=== PATIENT | female | born 1940 | race African-American/Black ===

== ENCOUNTER 2017-02-14 12:59 | Observation (INO) | payer OTHER ==
[~2017-02-14] VITALS: Ht 162.6 cm; Wt 70.0 kg
[~2017-02-14 12:59] MED LIST: ALBU8I INH; ASPI81 CHEW; DILTCD300 PO; FLON0.053; LATA0.00 OP; LISI-360 PO; MONT10TA2 PO; Meclizine Hcl PO; OMEP20TA PO; PRED20 PO; ZITH250T PO
[2017-02-14 13:12] VITALS: BP 115/56; PULSE 56; RESP 16; TEMP 97.3; O2SAT 100
[2017-02-14] MEDS ORDERED: CARV3.12 PO (13:29)
[2017-02-14] MEDS ORDERED: OMEP20TA PO (13:29)
[2017-02-14] MEDS ORDERED: PANT20TA2 PO (13:29)
[2017-02-14] MEDS ORDERED: ATOR1TAB18 PO (13:29)
[2017-02-14] MEDS ORDERED: BACL10TA PO (13:29)
[2017-02-14] MEDS ORDERED: DILT0.05 PO (13:29)
[2017-02-14] MEDS ORDERED: LOSA50TA2 PO (13:29)
[2017-02-14] MEDS ORDERED: MONT10TA4 PO (13:29)
[2017-02-14] MEDS ORDERED: OXYB5TAB10 PO (13:29)
[2017-02-14] MEDS ORDERED: ISOS60TA PO (13:29)
[2017-02-14] MEDS ORDERED: BENZ1CAP8 PO (13:29)
[2017-02-14 14:15] VITALS: BP 127/59; PULSE 56; RESP 15; O2SAT 99
[2017-02-14] MEDS ORDERED: SODIUM CHLORIDE 0.9% FLUSH 10 ML FLUSH IVF PRN (14:15)
--- NOTE | 2017-02-14 14:50 | RADRPT ---
EXAM DATE/TIME: 02/14/2017 14:34 [place] COMPARISON: CHEST SINGLE AP, April 20, 2014, 8:12. INDICATIONS : Shortness of breath and low blood pressure. MEDICAL HISTORY : heart attack. SURGICAL HISTORY : None. ENCOUNTER: Initial ACUITY: 1 day PAIN SCORE: 0/10 LOCATION: Bilateral chest FINDINGS: A single view of the chest demonstrates the lungs to be symmetrically aerated without evidence of mas s, infiltrate or effusion. The cardiomediastinal contours are unremarkable. Osseous structures are intact. CONCLUSION: 1. No acute cardiopulmonary disease. Matt Piña MD on February 14, 2017 at 14:48 Board Certified Radiologist. This report was verified electronically.
--- NOTE | 2017-02-14 14:51 | PD ---
HPI Chief Complaint: Syncope/Near-Syncope Time Seen by Provider: 13:26 Travel History International Travel<30 days: No Contact w/Intl Traveler<30days: No Traveled to known affect area: No History of Present Illness HPI 76-year-old female came to the emergency room brought by EMS for syncopal episode. Her daughter is here was giving elaborate history since she witnessed the event. Patient says that she was sitting on her porch and talking to her daughter when all of a sudden she felt woozy. She told her daughter that she wanted to go back inside and the daughter started to walk her back into the living room when patient says her symptoms worsened. At this point daughter noticed that patient had become very pale and passed out. She was gently laid down on the floor by her. Her skin was clammy as per her. That's when she called 911. When EMS arrived patient had slowly started to come back and was awake. She feels tired right now. As per EMS her heart rate was in the 30s initially. During transportation this slowly increased and currently it is in the 50s. Patient denies any chest pain. Daughter says that she does have a poor heart. No history of extensive coronary artery disease. I looked into the back of her medication that was brought in and patient is on diltiazem and Coreg among other medications. REPLACED BY [facility] Past Medical History Narrative Medical List of her past medical, surgical, social and family history is reviewed from the nursing note. Anemia: Yes Arthritis: Yes Asthma: Yes Atrial Fibrillation: Yes Autoimmune Disease: No Blood Disorders: No Anxiety: No Depression: No Heart Rhythm Problems: Yes (AFIB) Cancer: No Cardiac Catheterization: Yes High Cholesterol: Yes Cerebrovascular Accident: Yes Diabetes: No Endocrine: No Gastrointestinal Disorders: Yes GERD: Yes Genitourinary: No Headaches: Yes Hepatitis: Yes Hiatal Hernia: Yes Hypertension: Yes Immune Disorder: No Implanted Vascular Access Dvce: Yes Kidney Stones: No Musculoskeletal: Yes Neurologic: Yes Psychiatric: No Respiratory: Yes (pneumonia, asthma) Immunizations Current: No Migraines: No Myocardial Infarction: Yes Renal Failure: No Seizures: No Thyroid Disease: Yes Ulcer: No Tetanus Vaccination: Unknown Influenza Vaccination: Yes Menopausal: Yes : 4 Para: 4 Past Surgical History Abdominal Surgery: Yes AICD: No Appendectomy: Yes Arteriovenous Shunt: No Endocrine Surgery: No Genitourinary Surgery: Yes Gynecologic Surgery: No Hysterectomy: Yes Joint Replacement: Yes (BILATERAL KNEES) Pacemaker: No Other Surgery: Yes (thyroid) Social History Alcohol Use: No Tobacco Use: Yes (4 cig day) Substance Use: No Allergies-Medications (Allergen,Severity, Reaction): Coded Allergies: aspirin (Unverified Adverse Reaction, Severe, STOMACH UPSET, 02/14/17) Comments List of allergies reviewed from the nursing note. Reported Meds & Prescriptions Reported Meds & Active Scripts Active Reported Montelukast (Montelukast Sodium) 10 Mg Tab 10 Mg PO HS Omeprazole 20 Mg Tab 20 Mg PO DAILY Atorvastatin (Atorvastatin Calcium) 80 Mg Tab 80 Mg PO HS Ditropan (Oxybutynin Chloride) 5 Mg Tab 5 Mg PO HS Baclofen 10 Mg Tab 10 Mg PO BID Pantoprazole (Pantoprazole Sodium) 20 Mg Tab 20 Mg PO DAILY Losartan-Hydrochlorothiazide 50-12.5 Mg Tab 1 Tab PO DAILY Isosorbide Mononitrate ER (Isosorbide Mononitrate) 60 Mg Tab 60 Mg PO DAILY Benzonatate 100 Mg Cap 100 Mg PO TID PRN Narrative Medication List of her home medications reviewed from the nursing note. Review of Systems Except as stated in HPI: all other systems reviewed are Neg Physical Exam Narrative GENERAL: Awake, alert, moderate distress, frail SKIN: Focused skin assessment warm/dry. HEAD: Atraumatic. Normocephalic. EYES: Pupils equal and round. No scleral icterus. No injection or drainage. ENT: No nasal bleeding or discharge. Mucous membranes pink and moist. NECK: Trachea midline. No JVD. CARDIOVASCULAR: Regular rate and rhythm. No murmur appreciated. RESPIRATORY: No accessory muscle use. Clear to auscultation. Breath sounds equal bilaterally. GASTROINTESTINAL: Abdomen soft, non-tender, nondistended. Hepatic and splenic margins not palpable. MUSCULOSKELETAL: No obvious deformities. No clubbing. No cyanosis. No edema. NEUROLOGICAL: Awake and alert. No obvious cranial nerve deficits. Motor grossly within normal limits. Normal speech. PSYCHIATRIC: Appropriate mood and affect; insight and judgment normal. Data Data Last Documented VS Vital Signs Date Time Temp Pulse Resp B/P (MAP) Pulse Ox O2 Delivery O2 Flow Rate FiO2 02/14/17 15:56 56 17 134/63 (86) 99 Nasal Cannula 2.00 02/14/17 13:12 97.3 Orders Orders Electrocardiogram (02/14/17 ) Complete Blood Count With Diff (02/14/17 13:57) Comprehensive Metabolic Panel (02/14/17 13:57) Iv Access Insert/Monitor (02/14/17 13:57) Ckmb (Isoenzyme) Profile (02/14/17 14:10) Magnesium (Mg) (02/14/17 14:10) Prothrombin Time / Inr (Pt) (02/14/17 14:10) Act Partial Throm Time (Ptt) (02/14/17 14:10) Troponin I (02/14/17 14:10) Chest, Single Ap (02/14/17 14:10) Ecg Monitoring (02/14/17 14:10) Bilateral Bp Monitoring (02/14/17 14:10) Oximetry (02/14/17 14:10) Oxygen Administration (02/14/17 14:10) Sodium Chloride 0.9% Flush (Ns Flush) (02/14/17 14:15) Admit Order (Ed Use Only) (02/14/17 16:47) Labs Laboratory Tests Test 02/14/17 13:30 White Blood Count 9.8 TH/MM3 Red Blood Count 4.65 MIL/MM3 Hemoglobin 13.6 GM/DL Hematocrit 41.8 % Mean Corpuscular Volume 89.8 FL Mean Corpuscular Hemoglobin 29.3 PG Mean Corpuscular Hemoglobin Concent 32.6 % Red Cell Distribution Width 16.5 % Platelet Count 184 TH/MM3 Mean Platelet Volume 9.6 FL Neutrophils (%) (Auto) 62.1 % Lymphocytes (%) (Auto) 26.9 % Monocytes (%) (Auto) 9.4 % Eosinophils (%) (Auto) 1.1 % Basophils (%) (Auto) 0.5 % Neutrophils # (Auto) 6.1 TH/MM3 Lymphocytes # (Auto) 2.6 TH/MM3 Monocytes # (Auto) 0.9 TH/MM3 Eosinophils # (Auto) 0.1 TH/MM3 Basophils # (Auto) 0.0 TH/MM3 CBC Comment DIFF FINAL Differential Comment Prothrombin Time 11.7 SEC Prothromb Time International Ratio 1.1 RATIO Activated Partial Thromboplast Time 24.7 SEC Blood Urea Nitrogen 17 MG/DL Creatinine 1.13 MG/DL Random Glucose 137 MG/DL Total Protein 6.2 GM/DL Albumin 3.1 GM/DL Calcium Level 8.5 MG/DL Alkaline Phosphatase 111 U/L Aspartate Amino Transf (AST/SGOT) 16 U/L Alanine Aminotransferase (ALT/SGPT) 14 U/L Total Bilirubin 0.4 MG/DL Sodium Level 143 MEQ/L Potassium Level 3.8 MEQ/L Chloride Level 109 MEQ/L Carbon Dioxide Level 25.8 MEQ/L Anion Gap 8 MEQ/L Estimat Glomerular Filtration Rate 56 ML/MIN Magnesium Level 2.1 MG/DL Total Creatine Kinase 81 U/L Troponin I 0.02 NG/ML Thyroid Stimulating Hormone 3rd Gen 1.690 uIU/ML MDM Medical Decision Making Medical Screen Exam Complete: Yes Emergency Medical Condition: Yes Medical Record Reviewed: Yes Interpretation(s) Twelve-lead EKG was reviewed by me. Normal sinus rhythm, left axis deviation, nonspecific ST-T wave changes. Heart rate of 60 bpm. Differential Diagnosis Sick sinus syndrome, symptomatic bradycardia, syncope, electrolyte abnormality Narrative Course 2:50 PM awaiting for the blood test results. Chest x-rays within normal limits. Patient will require to be admitted for observation at least for the symptomatic bradycardia and syncope. I discussed this with the patient and the family and they understand. 4:31 PM blood test results are back and within acceptable limits. Awaiting for the hospitalist to call back for admission. Patient remains hemodynamically stable. Procedures EKG Prior to Arrival: Yes Diagnosis Primary Impression: Symptomatic bradycardia Additional Impression: Syncope Qualified Codes: R55 - Syncope and collapse Admitting Information Admitting Physician Requests: Observation Luisa Scherer MD Feb 14, 2017 14:51
[2017-02-14 15:00] LABS: AUTOMATED NEUTROPHIL # 6.1 TH/MM3 (1.8-7.7); BASOPHIL % 0.5 % (0.0-2.0); EOSINOPHIL # 0.1 TH/MM3 (0-0.4); EOSINOPHIL % 1.1 % (0.0-4.0); HEMATOCRIT 41.8 % (35.0-46.0); HEMO FLAGS DIFF FINAL; LYMPH % 26.9 % (9.0-44.0); LYMPHOCYTE # 2.6 TH/MM3 (1.0-4.8); MEAN CELL VOLUME 89.8 FL (80.0-100.0); MEAN CORPUSCULAR HEMOGLOBIN 29.3 PG (27.0-34.0); MEAN CORPUSCULAR HGB CONC 32.6 % (32.0-36.0); MONO % 9.4 % (0.0-8.0); NEUT % 62.1 % (16.0-70.0); PLATELET COUNT 184 TH/MM3 (150-450); RED BLOOD COUNT 4.65 MIL/MM3 (4.00-5.30); RED CELL DISTRIBUTION WIDTH 16.5 % (11.6-17.2); WHITE BLOOD COUNT 9.8 TH/MM3 (4.0-11.0)
[2017-02-14 15:31] LABS: INTERNATIONAL NORMALIZED RATIO 1.1 RATIO; PROTHROMBIN TIME - PATIENT 11.7 SEC (9.8-11.6)
[2017-02-14 15:32] LABS: ALKALINE PHOSPHATASE 111 U/L (45-117); APTT (PATIENT) 24.7 SEC (24.3-30.1); TOTAL BILIRUBIN ADULT 0.4 MG/DL (0.2-1.0)
[2017-02-14 15:39] LABS: ALT (GPT) 14 U/L (10-53); ANION GAP 8 MEQ/L (5-15); AST (GOT) 16 U/L (15-37); BICARBONATE 25.8 MEQ/L (21.0-32.0); BLOOD UREA NITROGEN 17 MG/DL (7-18); CHLORIDE 109 MEQ/L (98-107); GLOMERULAR FILTRATION RATE 56 ML/MIN (>89); POTASSIUM 3.8 MEQ/L (3.5-5.1); SODIUM (NA) 143 MEQ/L (136-145)
[2017-02-14 15:56] VITALS: BP 134/63; PULSE 56; RESP 17; O2SAT 99
[2017-02-14 16:19] LABS: MAGNESIUM 2.1 MG/DL (1.5-2.5)
--- NOTE | 2017-02-14 16:47 | HHI.HP ---
[facility] Service Family Medicine Primary Care Physician SOFI Mcleod Admission Diagnosis Diagnoses: International Travel<30 Days: No Contact w/Intl Traveler<30days: No Known Affected Area: No History of Present Illness ED note: 76-year-old female came to the emergency room brought by EMS for syncopal episode. Her daughter is here was giving elaborate history since she witnessed the event. Patient says that she was sitting on her porch and talking to her daughter when all of a sudden she felt woozy. She told her daughter that she wanted to go back inside and the daughter started to walk her back into the living room when patient says her symptoms worsened. At this point daughter noticed that patient had become very pale and passed out. She was gently laid down on the floor by her. Her skin was clammy as per her. That 's when she called 911. When EMS arrived patient had slowly started to come back and was awake. She feels tired right now. As per EMS her heart rate was in the 30s initially. During transportation is slowly increased and currently it is in the 50s. Patient denies any chest pain. Daughter says that she does have a poor heart. No history of extensive coronary artery disease. I looked into the back of her medication that was brought in and patient is on diltiazem and Coreg among other medications. Past Family Social History Past Medical History A. fib, HTN. Coronary artery disease Anemia Tobacco abuse Hyperlipidemia Asthma Hypertension Atrial fibrillation GERD Hiatal hernia Myocardial infarction Menopausal Thyroid disease Past Surgical History Appendectomy, Hysterectomy, Bilateral Knee Surgery, Thyroidectomy. 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 Social History Negative for alcohol or drugs. Patient reports smoking 1 cigarette per day. Admits to smoking for 20 years but stopped 6 months ago. No significant alcohol use. Physical Exam Vital Signs Vital Signs Date Time Temp Pulse Resp B/P (MAP) Pulse Ox O2 Delivery O2 Flow Rate FiO2 02/14/17 15:56 56 17 134/63 (86) 99 Nasal Cannula 2.00 02/14/17 14:15 56 15 127/59 (81) 99 Nasal Cannula 2.00 02/14/17 13:17 16 100 02/14/17 13:12 97.3 56 16 115/56 (20) 100 Physical Exam GENERAL: This is a well-nourished, well-developed patient, in no apparent distress. SKIN: No rashes, ecchymoses or lesions. Cool and dry. HEAD: Atraumatic. Normocephalic. No temporal or scalp tenderness. EYES: Pupils equal round and reactive. Extraocular motions intact. No scleral icterus. No injection or drainage. ENT: Nose without bleeding, purulent drainage or septal hematoma. Throat without erythema, tonsillar hypertrophy or exudate. Uvula midline. Airway patent. NECK: Trachea midline. No JVD or lymphadenopathy. Supple, nontender, no meningeal signs. CARDIOVASCULAR: Regular rate and rhythm without murmurs, gallops, or rubs. RESPIRATORY: Clear to auscultation. Breath sounds equal bilaterally. No wheezes , rales, or rhonchi. GASTROINTESTINAL: Abdomen soft, non-tender, nondistended. No hepato-splenomegaly , or palpable masses. No guarding. MUSCULOSKELETAL: Extremities without clubbing, cyanosis, or edema. No joint tenderness, effusion, or edema noted. No calf tenderness. Negative Homans sign bilaterally. NEUROLOGICAL: Awake and alert. Cranial nerves II through XII intact. Motor and sensory grossly within normal limits. Five out of 5 muscle strength in all muscle groups. Normal speech. Laboratory Laboratory Tests Test 02/14/17 13:30 White Blood Count 9.8 Red Blood Count 4.65 Hemoglobin 13.6 Hematocrit 41.8 Mean Corpuscular Volume 89.8 Mean Corpuscular Hemoglobin 29.3 Mean Corpuscular Hemoglobin Concent 32.6 Red Cell Distribution Width 16.5 Platelet Count 184 Mean Platelet Volume 9.6 Neutrophils (%) (Auto) 62.1 Lymphocytes (%) (Auto) 26.9 Monocytes (%) (Auto) 9.4 Eosinophils (%) (Auto) 1.1 Basophils (%) (Auto) 0.5 Neutrophils # (Auto) 6.1 Lymphocytes # (Auto) 2.6 Monocytes # (Auto) 0.9 Eosinophils # (Auto) 0.1 Basophils # (Auto) 0.0 CBC Comment DIFF FINAL Differential Comment Prothrombin Time 11.7 Prothromb Time International Ratio 1.1 Activated Partial Thromboplast Time 24.7 Blood Urea Nitrogen 17 Creatinine 1.13 Random Glucose 137 Total Protein 6.2 Albumin 3.1 Calcium Level 8.5 Alkaline Phosphatase 111 Aspartate Amino Transf (AST/SGOT) 16 Alanine Aminotransferase (ALT/SGPT) 14 Total Bilirubin 0.4 Sodium Level 143 Potassium Level 3.8 Chloride Level 109 Carbon Dioxide Level 25.8 Anion Gap 8 Estimat Glomerular Filtration Rate 56 Magnesium Level 2.1 Total Creatine Kinase 81 Troponin I 0.02 Result Diagram: 02/14/17 1330 02/14/17 1330 Caprini VTE Risk Assessment Caprini Risk Assessment Model Point Value = 1 Point Value = 2 Point Value = 3 Point Value = 5 Age 41-60 Minor surgery BMI > 25 kg/m2 Swollen legs Varicose veins or History of unexplained or recurrent spontaneous Oral contraceptives or hormone replacement Sepsis (< 1 month) Serious lung disease, including pneumonia (< 1 month) Abnormal pulmonary function Acute myocardial infarction Congestive heart failure (< 1 month) History of inflammatory bowel disease Medical patient at bed rest Age 61-74 Arthroscopic surgery Major open surgery (> 45 min) Laparoscopic surgery (> 45 min) Malignancy Confined to bed (> 72 hours) Immobilizing plaster cast Central venous access Age >= 75 History of VTE Family history of VTE Factor V Leiden Prothrombin [id number] Lupus anticoagulant Anticardiolipin antibodies Elevated serum homocysteine Heparin-induced thrombocytopenia Other congenital or acquired thrombophilia Stroke (< 1 month) Elective arthroplasty Hip, pelvis, or leg fracture Acute spinal cord injury (< 1 month) Prophylaxis Regimen Total Risk Factor Score Risk Level Prophylaxis Regimen 0-1 Low Early ambulation 2 Moderate Order ONE of the following: *Sequential Compression Device (SCD) *Heparin 5000 units SQ BID 3-4 Higher Order ONE of the following medications: *Heparin 5000 units SQ TID *Enoxaparin/Lovenox 40 mg SQ daily (WT < 150 kg, CrCl > 30 mL/min) *Enoxaparin/Lovenox 30 mg SQ daily (WT < 150 kg, CrCl > 10-29 mL/min) *Enoxaparin/Lovenox 30 mg SQ BID (WT < 150 kg, CrCl > 30 mL/min) AND/OR *Sequential Compression Device (SCD) 5 or more Highest Order ONE of the following medications: *Heparin 5000 units SQ TID (Preferred with Epidurals) *Enoxaparin/Lovenox 40 mg SQ daily (WT < 150 kg, CrCl > 30 mL/min) *Enoxaparin/Lovenox 30 mg SQ daily (WT < 150 kg, CrCl > 10-29 mL/min) *Enoxaparin/Lovenox 30 mg SQ BID (WT < 150 kg, CrCl > 30 mL/min) AND *Sequential Compression Device (SCD) Rudy Kirk MD R2 Feb 14, 2017 16:47
[2017-02-14] MEDS ORDERED: SODIUM CHLORIDE 0.9% FLUSH 10 ML FLUSH IV FLUSH PRN (17:45)
[2017-02-14 17:59] VITALS: O2SAT 100
[2017-02-14] MEDS ORDERED: ENOXAPARIN SODIUM 40 MG/0.4 ML SYRINGE SQ SCH (18:00)
--- NOTE | 2017-02-14 18:55 | HHI.HP ---
[facility] Service Family Medicine Primary Care Physician Nury Urban, SOFI Admission Diagnosis Diagnoses: International Travel<30 Days: No Contact w/Intl Traveler<30days: No Known Affected Area: No History of Present Illness 76-year-old female, with pmhx Afibb and HTN, presents after syncopal episode this morning. The patient states that she was sitting on the porch and eating food and then all of a sudden she felt dizzy. She told her daughter that she needed to be brought inside and then she passed out and the rest of the events are noticed by the daughter. The daughter states that she became very pale and clammy and passed out for a couple of minutes. The patient states that she woke up in the ER and she felt fine "just a little dizzy". She denies any chest pain or shortness of breath this morning. She denies any recent sicknesses. She has been feeling fine all week with no complaints. (Rachna Gore MD R2) Review of Systems Constitutional: DENIES: Fever, Weight gain Endocrine: DENIES: Heat/cold intolerance Eyes: DENIES: Blurred vision, Diplopia Ears, nose, mouth, throat: DENIES: Tinnitus, Hearing loss Respiratory: DENIES: Cough, Wheezing Cardiovascular: DENIES: Palpitations, Dyspnea on Exertion Gastrointestinal: DENIES: Abdominal pain, Black stools Genitourinary: DENIES: Hematuria, Dysuria Musculoskeletal: DENIES: Muscle aches, Stiffness Integumentary: DENIES: Pruritus Psychiatric: DENIES: Confusion, Mood changes (Rachna Gore MD R2) Past Family Social History Past Medical History A. fib, HTN. Coronary artery disease Anemia Tobacco abuse Hyperlipidemia Asthma Hypertension Atrial fibrillation GERD Hiatal hernia Myocardial infarction Menopausal Thyroid disease Past Surgical History Appendectomy, Hysterectomy, Bilateral Knee Surgery, Thyroidectomy. Bilateral knee replacement Total hysterectomy Appendectomy (Rachna Gore MD R2) Allergies: Coded Allergies: aspirin (Unverified Adverse Reaction, Severe, STOMACH UPSET, 02/14/17) Family History Noncontributory. Social History smokes 4 cigarettes per day, denies alcohol, denies other drugs (Rachna Gore MD R2) Physical Exam Vital Signs Vital Signs Date Time Temp Pulse Resp B/P (MAP) Pulse Ox O2 Delivery O2 Flow Rate FiO2 02/14/17 17:59 100 Nasal Cannula 2.00 02/14/17 15:56 56 17 134/63 (86) 99 Nasal Cannula 2.00 02/14/17 14:15 56 15 127/59 (81) 99 Nasal Cannula 2.00 02/14/17 13:17 16 100 02/14/17 13:12 97.3 56 16 115/56 (75) 100 Physical Exam GENERAL: This is a well-nourished, well-developed patient, in no apparent distress. SKIN: No rashes, ecchymoses or lesions. Cool and dry. HEAD: Atraumatic. Normocephalic. No temporal or scalp tenderness. EYES: Pupils equal round and reactive. Extraocular motions intact. No scleral icterus. No injection or drainage. ENT: Nose without bleeding, purulent drainage or septal hematoma. Throat without erythema, tonsillar hypertrophy or exudate. Uvula midline. Airway patent. NECK: Trachea midline. No JVD or lymphadenopathy. Supple, nontender, no meningeal signs. CARDIOVASCULAR: Regular rate and rhythm without murmurs, gallops, or rubs. RESPIRATORY: Clear to auscultation. Breath sounds equal bilaterally. No wheezes , rales, or rhonchi. GASTROINTESTINAL: Abdomen soft, non-tender, nondistended. No hepato-splenomegaly , or palpable masses. No guarding. MUSCULOSKELETAL: Extremities without clubbing, cyanosis, or edema. No joint tenderness, effusion, or edema noted. No calf tenderness. Negative Homans sign bilaterally. NEUROLOGICAL: Awake and alert. Cranial nerves II through XII intact. Motor and sensory grossly within normal limits. Five out of 5 muscle strength in all muscle groups. Normal speech. Laboratory Laboratory Tests Test 02/14/17 13:30 White Blood Count 9.8 Red Blood Count 4.65 Hemoglobin 13.6 Hematocrit 41.8 Mean Corpuscular Volume 89.8 Mean Corpuscular Hemoglobin 29.3 Mean Corpuscular Hemoglobin Concent 32.6 Red Cell Distribution Width 16.5 Platelet Count 184 Mean Platelet Volume 9.6 Neutrophils (%) (Auto) 62.1 Lymphocytes (%) (Auto) 26.9 Monocytes (%) (Auto) 9.4 Eosinophils (%) (Auto) 1.1 Basophils (%) (Auto) 0.5 Neutrophils # (Auto) 6.1 Lymphocytes # (Auto) 2.6 Monocytes # (Auto) 0.9 Eosinophils # (Auto) 0.1 Basophils # (Auto) 0.0 CBC Comment DIFF FINAL Differential Comment Prothrombin Time 11.7 Prothromb Time International Ratio 1.1 Activated Partial Thromboplast Time 24.7 Blood Urea Nitrogen 17 Creatinine 1.13 Random Glucose 137 Total Protein 6.2 Albumin 3.1 Calcium Level 8.5 Alkaline Phosphatase 111 Aspartate Amino Transf (AST/SGOT) 16 Alanine Aminotransferase (ALT/SGPT) 14 Total Bilirubin 0.4 Sodium Level 143 Potassium Level 3.8 Chloride Level 109 Carbon Dioxide Level 25.8 Anion Gap 8 Estimat Glomerular Filtration Rate 56 Magnesium Level 2.1 Total Creatine Kinase 81 Troponin I 0.02 (Rachna Gore MD R2) Result Diagram: 02/14/17 1330 02/14/17 1330 Caprini VTE Risk Assessment Caprini VTE Risk Assessment: No/Low Risk (score <= 1) Caprini Risk Assessment Model Point Value = 1 Point Value = 2 Point Value = 3 Point Value = 5 Age 41-60 Minor surgery BMI > 25 kg/m2 Swollen legs Varicose veins or History of unexplained or recurrent spontaneous Oral contraceptives or hormone replacement Sepsis (< 1 month) Serious lung disease, including pneumonia (< 1 month) Abnormal pulmonary function Acute myocardial infarction Congestive heart failure (< 1 month) History of inflammatory bowel disease Medical patient at bed rest Age 61-74 Arthroscopic surgery Major open surgery (> 45 min) Laparoscopic surgery (> 45 min) Malignancy Confined to bed (> 72 hours) Immobilizing plaster cast Central venous access Age >= 75 History of VTE Family history of VTE Factor V Leiden Prothrombin [id number] Lupus anticoagulant Anticardiolipin antibodies Elevated serum homocysteine Heparin-induced thrombocytopenia Other congenital or acquired thrombophilia Stroke (< 1 month) Elective arthroplasty Hip, pelvis, or leg fracture Acute spinal cord injury (< 1 month) Prophylaxis Regimen Total Risk Factor Score Risk Level Prophylaxis Regimen 0-1 Low Early ambulation 2 Moderate Order ONE of the following: *Sequential Compression Device (SCD) *Heparin 5000 units SQ BID 3-4 Higher Order ONE of the following medications: *Heparin 5000 units SQ TID *Enoxaparin/Lovenox 40 mg SQ daily (WT < 150 kg, CrCl > 30 mL/min) *Enoxaparin/Lovenox 30 mg SQ daily (WT < 150 kg, CrCl > 10-29 mL/min) *Enoxaparin/Lovenox 30 mg SQ BID (WT < 150 kg, CrCl > 30 mL/min) AND/OR *Sequential Compression Device (SCD) 5 or more Highest Order ONE of the following medications: *Heparin 5000 units SQ TID (Preferred with Epidurals) *Enoxaparin/Lovenox 40 mg SQ daily (WT < 150 kg, CrCl > 30 mL/min) *Enoxaparin/Lovenox 30 mg SQ daily (WT < 150 kg, CrCl > 10-29 mL/min) *Enoxaparin/Lovenox 30 mg SQ BID (WT < 150 kg, CrCl > 30 mL/min) AND *Sequential Compression Device (SCD) (Rachna Gore MD R2) Assessment and Plan Assessment and Plan 76-year-old female, history of A. fib and hypertension, presents for workup of syncope. Discussed Condition With Dr. Yelena Teague (Rachna Gore MD R2) Attending Attestation THIS CASE WAS DISCUSSED WITH THE RESIDENT PHYSICIAN. I HAVE REVIEWED THE RECORD AND AGREE WITH THE ABOVE NOTE AND PLAN OF CARE WAS DISCUSSED. I HAVE AUTHORIZED THE ORDER FOR PLACEMENT IN OUT-PATIENT OBSERVATION STATUS. (Lopez Teague MD) Problem List: (1) Coronary artery disease ICD Codes: I25.10 - Atherosclerotic heart disease of [place] coronary artery without angina pectoris Status: Chronic Plan: Follow-up ACS workup; troponin 3, EKG 3 Continue atorvastatin 80 mg daily Continue Imdur 60 daily Hold carvedilol 3.125 twice a day Hold diltiazem ER daily Continue ARB : Losartan hydrochlorothiazide 50-12.5d (2) Symptomatic bradycardia ICD Codes: R00.1 - Bradycardia, unspecified Status: Acute Plan: Follow medication regimen as noted above We will consult cardio if bradycardia does not resolve (3) Thyroid disease ICD Codes: E07.9 - Disorder of thyroid, unspecified Status: Chronic Plan: Per patient previous charts Follow-up TSH (4) Hiatal hernia with GERD ICD Codes: K21.9 - Gastro-esophageal reflux disease without esophagitis; K44.9 - Diaphragmatic hernia without obstruction or gangrene Status: Chronic Plan: Continue omeprazole 20 daily (5) Syncope ICD Codes: R55 - Syncope and collapse Status: Acute Plan: Follow-up carotid ultrasound Follow-up echocardiogram Follow-up orthostatic blood pressures (6) Hypertension ICD Codes: I10 - Hypertension Status: Chronic Plan: Continue blood pressure medications as noted above Follow-up blood pressures (7) A-fib ICD Codes: I48.91 - A-fib Status: Chronic Plan: Continue medications as mentioned above Follow-up telemetry Lovenox 40 daily (8) Urinary retention ICD Codes: R33.9 - Retention of urine, unspecified (9) Asthma ICD Codes: J45.909 - Unspecified asthma, uncomplicated Status: Chronic Plan: Continue montelukast daily Albuterol 2 puffs when necessary shortness of breath (10) fen/ppx Status: Chronic Plan: Fluids: continue PO fluids as tolerated Electrolytes: BMP within normal limits follow-up BMP in a.m. Nutrition: regular diet dvtppx: lovenox 40d GIppx: Cont omeprazole 20d (Rachna Gore MD R2) Problem Qualifiers (1) Syncope: Qualified Codes: R55 - Syncope and collapse (2) Asthma: Rachna Gore MD R2 Feb 14, 2017 18:54 Lopez Teague MD Feb 15, 2017 12:15
[2017-02-14] MEDS ORDERED: ALBUTEROL SULFATE 90 MCG/ACT HFA 8 GM INHALER INH PRN (19:00)
[2017-02-14] MEDS ORDERED: IBUPROFEN 400 MG TAB PO ONE (19:00)
[2017-02-14 20:23] VITALS: BP_SYST 114; BP_SYST 118; BP_SYST 136; BP_DIAS 59; BP_DIAS 62; BP_DIAS 65; PULSE 62; RESP 16; TEMP 98.1; O2SAT 96
[2017-02-14] MEDS: SODIUM CHLOR 0.9% 1000 ML INJ 1,000 ML IV SCH (20:30)
[2017-02-14] MEDS: SODIUM CHLORIDE 0.9% FLUSH 10 ML FLUSH IV FLUSH SCH (20:30)
[2017-02-14] MEDS ORDERED: ATORVASTATIN 80 MG TAB PO SCH (21:00)
[2017-02-14] MEDS ORDERED: OXYBUTYNIN CHLORIDE 5 MG TAB PO SCH (21:00)
--- NOTE | 2017-02-14 22:12 | RADRPT ---
EXAM DATE/TIME: 02/14/2017 20:57 [place] COMPARISON: US CAROTID ARTERIES, April 19, 2014, 20:57. INDICATIONS : Syncope. MEDICAL HISTORY : Hypercholesterolemia. Gastroesophageal reflux disease. Thyroid disease. Cerebrovascular accident. Myocardial infarction. Atrial fibrillation. Hernia, hiatal. Arthritis. Anemia. SURGICAL HISTORY : Appendectomy. Cardiac catheterization. Bilateral knee replacement. Thyroid surgery, unspecified . ENCOUNTER: Initial ACUITY: 1 day PAIN SCORE: 4/10 LOCATION: Bilateral neck PEAK SYSTOLIC VELOCITIES (cm/sec): ICA/CCA RATIO: Right: 1.1 Left: 0.8 ICA: Right: 52.6 Left: 46.1 CCA: Right: 46.0 Left: 55.5 ECA: Right: 59.4. Left: 48.2 VERTEBRAL: Right: 46..5 antegrade Left: 43.9 antegrade Elevated flow velocities and ICA/CCA ratios have been found to correlate with increased degrees of vessel stenosis, calculated as percentage of diameter relative to a normal segment of distal ICA/CCA FINDINGS: RIGHT CAROTID: There is mild plaque at the right carotid bulb region. No significant stenosis is visualized. The wa veforms are within normal limits. LEFT CAROTID: There is minimal plaque at the left carotid bulb region. No significant stenosis is visualized. The waveforms are within normal limits. VERTEBRAL ARTERIES: Antegrade flow is seen in both vertebral arteries. MISCELLANEOUS: None. CONCLUSION: Mild plaque at the right carotid bulb region and minimal plaque at the left carotid bulb region witho ut a hemodynamically significant stenosis. Portillo Anthony MD on February 14, 2017 at 22:09 Board Certified Radiologist. This report was verified electronically.
[2017-02-14 23:49] VITALS: BP 138/63; PULSE 56; RESP 17; TEMP 97.6; O2SAT 95
[2017-02-15] VITALS (7 sets, daily range): BP systolic 119–170; BP diastolic 62–73; PULSE 53–60; RESP 17–20; TEMP 97.9–98.6; O2SAT 96–100
[2017-02-15] MEDS: SODIUM CHLOR 0.9% 1000 ML INJ 1,000 ML IV SCH (03:58)
[2017-02-15] MEDS ORDERED: ISOSORBIDE MONONITRATE 60 MG TAB PO SCH (09:00)
[2017-02-15] MEDS ORDERED: LOSARTAN 50 MG TAB PO SCH (09:00)
[2017-02-15] MEDS: SODIUM CHLORIDE 0.9% FLUSH 10 ML FLUSH IV FLUSH SCH (09:00)
[2017-02-15] MEDS ORDERED: PANTOPRAZOLE SOD 20 MG DELAYED RELEASE TAB PO SCH (09:00)
[2017-02-15] MEDS ORDERED: HYDROCHLOROTHIAZIDE 12.5 MG CAP PO SCH (09:00)
[2017-02-15 09:20] LABS: AUTOMATED NEUTROPHIL # 6.1 TH/MM3 (1.8-7.7); BASOPHIL % 0.5 % (0.0-2.0); EOSINOPHIL # 0.1 TH/MM3 (0-0.4); EOSINOPHIL % 1.3 % (0.0-4.0); HEMATOCRIT 40.4 % (35.0-46.0); HEMO FLAGS DIFF FINAL; LYMPHOCYTE # 2.2 TH/MM3 (1.0-4.8); MEAN CELL VOLUME 89.2 FL (80.0-100.0); MEAN CORPUSCULAR HEMOGLOBIN 29.4 PG (27.0-34.0); MONO % 8.4 % (0.0-8.0); NEUT % 65.8 % (16.0-70.0); PLATELET COUNT 174 TH/MM3 (150-450); RED BLOOD COUNT 4.53 MIL/MM3 (4.00-5.30); RED CELL DISTRIBUTION WIDTH 16.4 % (11.6-17.2); WHITE BLOOD COUNT 9.3 TH/MM3 (4.0-11.0)
[2017-02-15 09:26] LABS: BICARBONATE 24.7 MEQ/L (21.0-32.0); POTASSIUM 3.9 MEQ/L (3.5-5.1)
--- NOTE | 2017-02-15 10:06 | EKG ---
Date Performed: 02/15/2017 Time Performed: 01:46:10 PTAGE: 76 years EKG: SINUS BRADYCARDIA NONSPECIFIC T-WAVE ABNORMALITY BORDERLINE ECG PREVIOUS TRACING : 02/15/2017 01.42 DOCTOR: Min Cutler Interpretating Date/Time 02/15/2017 10:04:12
--- NOTE | 2017-02-15 10:22 | EKG ---
Date Performed: 02/14/2017 Time Performed: 19:41:43 PTAGE: 76 years EKG: SINUS BRADYCARDIA POSSIBLE ANTERIOR MYOCARDIAL INFARCTION ABNORMAL ECG PREVIOUS TRACING : 02/14/2017 13.19 DOCTOR: Min Cutler Interpretating Date/Time 02/15/2017 10:21:03
--- NOTE | 2017-02-15 12:10 | HHI.FPPN ---
Objective Vitals Vital Signs Date Time Temp Pulse Resp B/P (MAP) Pulse Ox O2 Delivery O2 Flow Rate FiO2 02/15/17 07:21 98.6 56 20 119/67 (84) 98 02/15/17 05:22 21 02/15/17 04:19 97.9 60 17 130/69 (89) 96 02/15/17 04:10 56 02/15/17 00:33 53 02/14/17 23:49 97.6 56 17 138/63 (88) 95 02/14/17 20:23 98.1 62 16 114/62 (79) 96 118/59 (78) 136/65 (88) 02/14/17 17:59 100 Nasal Cannula 2.00 02/14/17 15:56 56 17 134/63 (86) 99 Nasal Cannula 2.00 02/14/17 14:15 56 15 127/59 (81) 99 Nasal Cannula 2.00 02/14/17 13:17 16 100 02/14/17 13:12 97.3 56 16 115/56 (75) 100 Result Diagram: 02/15/17 0826 02/15/17 0826 A/P Assessment and Plan 76-year-old female, history of A. fib and hypertension, presents for workup of syncope. Problem List: (1) Coronary artery disease ICD Codes: I25.10 - Atherosclerotic heart disease of [place] coronary artery without angina pectoris Status: Chronic Plan: Follow-up ACS workup; troponin 3, EKG 3 Continue atorvastatin 80 mg daily Continue Imdur 60 daily Hold carvedilol 3.125 twice a day Hold diltiazem ER daily Continue ARB : Losartan hydrochlorothiazide 50-12.5d (2) Symptomatic bradycardia ICD Codes: R00.1 - Bradycardia, unspecified Status: Acute Plan: Follow medication regimen as noted above We will consult cardio if bradycardia does not resolve (3) Thyroid disease ICD Codes: E07.9 - Disorder of thyroid, unspecified Status: Chronic Plan: Per patient previous charts Follow-up TSH (4) Hiatal hernia with GERD ICD Codes: K21.9 - Gastro-esophageal reflux disease without esophagitis; K44.9 - Diaphragmatic hernia without obstruction or gangrene Status: Chronic Plan: Continue omeprazole 20 daily (5) Syncope ICD Codes: R55 - Syncope and collapse Status: Acute Plan: Follow-up carotid ultrasound Follow-up echocardiogram Follow-up orthostatic blood pressures (6) Hypertension ICD Codes: I10 - Hypertension Status: Chronic Plan: Continue blood pressure medications as noted above Follow-up blood pressures (7) A-fib ICD Codes: I48.91 - A-fib Status: Chronic Plan: Continue medications as mentioned above Follow-up telemetry Lovenox 40 daily (8) Urinary retention ICD Codes: R33.9 - Retention of urine, unspecified (9) Asthma ICD Codes: J45.909 - Unspecified asthma, uncomplicated Status: Chronic Plan: Continue montelukast daily Albuterol 2 puffs when necessary shortness of breath (10) fen/ppx Status: Chronic Plan: Fluids: continue PO fluids as tolerated Electrolytes: BMP within normal limits follow-up BMP in a.m. Nutrition: regular diet dvtppx: lovenox 40d GIppx: Cont omeprazole 20d Problem Qualifiers (1) Syncope: Qualified Codes: R55 - Syncope and collapse Rachna Gore MD R2 Feb 15, 2017 12:10
--- NOTE | 2017-02-15 12:14 | HHI.HP ---
[facility] Service Family Medicine Primary Care Physician Nury Urban, [facility] Admission Diagnosis Diagnoses: (1) Coronary artery disease (2) Symptomatic bradycardia (3) Thyroid disease (4) Hiatal hernia with GERD (5) Syncope (6) Hypertension (7) A-fib (8) Urinary retention (9) Asthma (10) fen/ppx International Travel<30 Days: No Contact w/Intl Traveler<30days: No Known Affected Area: No History of Present Illness There were no significant events overnight and patient feels relatively well this morning. She denies any symptoms such as chest pain, shortness of breath, lightheadedness or dizziness. We have held both her Cardizem and metoprolol and her blood pressures have remained within normal limits and her heart rate has improved into the low 60s. She has not been up and out of bed with walking since she has been hospitalized and would like to do so today. She did tolerate breakfast and dinner without issue and states that she has been going to the bathroom without issue. In summary this is a 76-year-old female with a past medical history of atrial fibrillation and hypertension who presented to the emergency department after syncopal episode on the day of admission. She states that she was sitting on a porch and eating her food when she felt dizzy and had a syncopal episode for several seconds. The daughter states that her mother became very pale and clammy prior to her loss of consciousness. The patient woke up after several seconds and states that she felt a little dizzy, otherwise denied any residual symptoms. She denies any recent illnesses, she denies any chest pain or shortness of breath, she denies any syncopal or presyncopal events previously. Past Family Social History Past Medical History A. fib, HTN. Coronary artery disease Anemia Tobacco abuse Hyperlipidemia Asthma Hypertension Atrial fibrillation GERD Hiatal hernia Myocardial infarction Menopausal Thyroid disease Past Surgical History Appendectomy, Hysterectomy, Bilateral Knee Surgery, Thyroidectomy. Bilateral knee replacement Total hysterectomy Appendectomy Allergies: Coded Allergies: aspirin (Unverified Adverse Reaction, Severe, STOMACH UPSET, 02/14/17) Family History Noncontributory. Social History smokes 4 cigarettes per day, denies alcohol, denies other drugs Physical Exam Vital Signs Vital Signs Date Time Temp Pulse Resp B/P (MAP) Pulse Ox O2 Delivery O2 Flow Rate FiO2 02/15/17 07:21 98.6 56 20 119/67 (84) 98 02/15/17 05:22 21 02/15/17 04:19 97.9 60 17 130/69 (89) 96 02/15/17 04:10 56 02/15/17 00:33 53 02/14/17 23:49 97.6 56 17 138/63 (88) 95 02/14/17 20:23 98.1 62 16 114/62 (79) 96 118/59 (78) 136/65 (88) 02/14/17 17:59 100 Nasal Cannula 2.00 02/14/17 15:56 56 17 134/63 (86) 99 Nasal Cannula 2.00 02/14/17 14:15 56 15 127/59 (81) 99 Nasal Cannula 2.00 02/14/17 13:17 16 100 02/14/17 13:12 97.3 56 16 115/56 (75) 100 Physical Exam GENERAL: This is a well-nourished, well-developed patient, in no apparent distress lying comfortably in bed. SKIN: No rashes, ecchymoses or lesions. Cool and dry. EYES: Pupils equal round and reactive. Extraocular motions intact. No scleral icterus. No injection or drainage. CARDIOVASCULAR: Regular rate and rhythm without murmurs, gallops, or rubs. RESPIRATORY: Clear to auscultation. Breath sounds equal bilaterally. No wheezes , rales, or rhonchi. GASTROINTESTINAL: Abdomen soft, non-tender, nondistended. MUSCULOSKELETAL: Extremities without clubbing, cyanosis, or edema. NEUROLOGICAL: Awake and alert. Cranial nerves II through XII intact. Motor and sensory grossly within normal limits. Normal speech. Laboratory Laboratory Tests Test 02/14/17 13:30 02/14/17 19:30 02/15/17 01:37 02/15/17 08:26 White Blood Count 9.8 9.3 Red Blood Count 4.65 4.53 Hemoglobin 13.6 13.3 Hematocrit 41.8 40.4 Mean Corpuscular Volume 89.8 89.2 Mean Corpuscular Hemoglobin 29.3 29.4 Mean Corpuscular Hemoglobin Concent 32.6 33.0 Red Cell Distribution Width 16.5 16.4 Platelet Count 184 174 Mean Platelet Volume 9.6 9.5 Neutrophils (%) (Auto) 62.1 65.8 Lymphocytes (%) (Auto) 26.9 24.0 Monocytes (%) (Auto) 9.4 8.4 Eosinophils (%) (Auto) 1.1 1.3 Basophils (%) (Auto) 0.5 0.5 Neutrophils # (Auto) 6.1 6.1 Lymphocytes # (Auto) 2.6 2.2 Monocytes # (Auto) 0.9 0.8 Eosinophils # (Auto) 0.1 0.1 Basophils # (Auto) 0.0 0.0 CBC Comment DIFF FINAL DIFF FINAL Differential Comment Prothrombin Time 11.7 Prothromb Time International Ratio 1.1 Activated Partial Thromboplast Time 24.7 Blood Urea Nitrogen 17 12 Creatinine 1.13 0.77 Random Glucose 137 90 Total Protein 6.2 Albumin 3.1 Calcium Level 8.5 8.8 Alkaline Phosphatase 111 Aspartate Amino Transf (AST/SGOT) 16 Alanine Aminotransferase (ALT/SGPT) 14 Total Bilirubin 0.4 Sodium Level 143 140 Potassium Level 3.8 3.9 Chloride Level 109 108 Carbon Dioxide Level 25.8 24.7 Anion Gap 8 7 Estimat Glomerular Filtration Rate 56 88 Magnesium Level 2.1 Total Creatine Kinase 81 Troponin I 0.02 0.04 0.05 Thyroid Stimulating Hormone 3rd Gen 1.690 Result Diagram: 02/15/1782502/15/17 08 Imaging Last 48 hours Impressions Chest X-Ray 02/14/17 1410 Signed Impressions: Service Date/Time: Tuesday, February 14, 2017 14:34 - CONCLUSION: 1. No acute cardiopulmonary disease. Matt Piña MD Carotid Artery Ultrasound 02/14/17 0000 Signed Impressions: Service Date/Time: Tuesday, February 14, 2017 20:57 - CONCLUSION: Mild plaque at the right carotid bulb region and minimal plaque at the left carotid bulb region without a hemodynamically significant stenosis. Portillo Anthony MD Caprini VTE Risk Assessment Caprini VTE Risk Assessment: No/Low Risk (score <= 1) Caprini Risk Assessment Model Point Value = 1 Point Value = 2 Point Value = 3 Point Value = 5 Age 41-60 Minor surgery BMI > 25 kg/m2 Swollen legs Varicose veins or History of unexplained or recurrent spontaneous Oral contraceptives or hormone replacement Sepsis (< 1 month) Serious lung disease, including pneumonia (< 1 month) Abnormal pulmonary function Acute myocardial infarction Congestive heart failure (< 1 month) History of inflammatory bowel disease Medical patient at bed rest Age 61-74 Arthroscopic surgery Major open surgery (> 45 min) Laparoscopic surgery (> 45 min) Malignancy Confined to bed (> 72 hours) Immobilizing plaster cast Central venous access Age >= 75 History of VTE Family history of VTE Factor V Leiden Prothrombin [id number] Lupus anticoagulant Anticardiolipin antibodies Elevated serum homocysteine Heparin-induced thrombocytopenia Other congenital or acquired thrombophilia Stroke (< 1 month) Elective arthroplasty Hip, pelvis, or leg fracture Acute spinal cord injury (< 1 month) Prophylaxis Regimen Total Risk Factor Score Risk Level Prophylaxis Regimen 0-1 Low Early ambulation 2 Moderate Order ONE of the following: *Sequential Compression Device (SCD) *Heparin 5000 units SQ BID 3-4 Higher Order ONE of the following medications: *Heparin 5000 units SQ TID *Enoxaparin/Lovenox 40 mg SQ daily (WT < 150 kg, CrCl > 30 mL/min) *Enoxaparin/Lovenox 30 mg SQ daily (WT < 150 kg, CrCl > 10-29 mL/min) *Enoxaparin/Lovenox 30 mg SQ BID (WT < 150 kg, CrCl > 30 mL/min) AND/OR *Sequential Compression Device (SCD) 5 or more Highest Order ONE of the following medications: *Heparin 5000 units SQ TID (Preferred with Epidurals) *Enoxaparin/Lovenox 40 mg SQ daily (WT < 150 kg, CrCl > 30 mL/min) *Enoxaparin/Lovenox 30 mg SQ daily (WT < 150 kg, CrCl > 10-29 mL/min) *Enoxaparin/Lovenox 30 mg SQ BID (WT < 150 kg, CrCl > 30 mL/min) AND *Sequential Compression Device (SCD) Assessment and Plan Assessment and Plan 76-year-old female, history of A. fib and hypertension, presents for workup of syncope. Problem List: (1) Symptomatic bradycardia ICD Codes: R00.1 - Bradycardia, unspecified Status: Acute Plan: Likely due to polypharmacy as patient was on both a calcium channel effie and beta effie - Diltiazem and carvedilol have both been held and her vital signs have normalized - Blood pressure ranging from 119-138/63-69 - Heart rate ranging from 53-62 Physical therapy to evaluate patient 2-D echocardiogram pending Carotid ultrasound with no significant obstruction or blockage Lab work has been within normal limits Consider discharge home holding beta effie and calcium channel effie if echocardiogram is normal (2) Syncope ICD Codes: R55 - Syncope and collapse Status: Acute Plan: Likely secondary to symptomatically bradycardia - Management plan as above for symptomatically bradycardia (3) Coronary artery disease ICD Codes: I25.10 - Atherosclerotic heart disease of [place] coronary artery without angina pectoris Status: Chronic Plan: ACS ruled out - Troponins negative 3 - EKG with no indication of ischemia Continue atorvastatin 80 mg daily Continue Imdur 60 mg daily Continue combination medication of ARB and Hydrochlorothiazide Holding home carvedilol and diltiazem, she can follow-up with her primary care provider to restart these if needed (4) Thyroid disease ICD Codes: E07.9 - Disorder of thyroid, unspecified Status: Chronic Plan: No acute intervention (5) Hiatal hernia with GERD ICD Codes: K21.9 - Gastro-esophageal reflux disease without esophagitis; K44.9 - Diaphragmatic hernia without obstruction or gangrene Status: Chronic Plan: Continue omeprazole 20 daily (6) Hypertension ICD Codes: I10 - Hypertension Status: Chronic Plan: Continue blood pressure medications as noted above Follow-up blood pressures (7) A-fib ICD Codes: I48.91 - A-fib Status: Chronic Plan: EKG shows that she is in normal sinus rhythm with bradycardia Continue medications as mentioned above Follow-up telemetry Lovenox 40 daily (8) Asthma ICD Codes: J45.909 - Unspecified asthma, uncomplicated Status: Chronic Plan: Continue montelukast daily Albuterol 2 puffs when necessary shortness of breath (9) fen/ppx Status: Chronic Plan: Fluids: continue PO fluids as tolerated Electrolytes: BMP within normal limits follow-up BMP in a.m. Nutrition: regular diet dvtppx: lovenox 40d GIppx: Cont omeprazole 20d Problem Qualifiers (1) Syncope: Qualified Codes: R55 - Syncope and collapse (2) Asthma: Lopez Teague MD Feb 15, 2017 12:14
--- NOTE | 2017-02-15 14:29 | EKG ---
Date Performed: 02/14/2017 Time Performed: 13:19:22 PTAGE: 76 years EKG: Sinus rhythm NONSPECIFIC T-WAVE ABNORMALITY ABNORMAL ECG NO PREVIOUS TRACING DOCTOR: Min Cutler Interpretating Date/Time 02/15/2017 14:28:37
--- NOTE | 2017-02-15 15:15 | HHI.DCPOC ---
Discharge Care Plan Diagnosis: (1) Dehydration (2) Atrial fibrillation, chronic (3) HTN (hypertension) (4) Syncope (5) Symptomatic bradycardia Goals to Promote Your Health * To prevent worsening of your condition and complications * To maintain your health at the optimal level Directions to Meet Your Goals Take your medications as prescribed Follow your dietary instruction Follow activity as directed Keep your appointments as scheduled Take your immunizations and boosters as scheduled If your symptoms worsen call your PCP, if no PCP go to Urgent Care Center or Emergency Room Smoking is Dangerous to Your Health. Avoid second hand smoke Call the 24-hour hour crisis hotline for domestic abuse at Rachna Gore MD R2 Feb 15, 2017 15:15
--- NOTE | 2017-02-15 20:41 | ECHRPT ---
Indication: SYNCOPE CONCLUSIONS Normal left ventricular size. Wall thickness is normal. The left ventricular systolic function is normal (EF 60%). The left atrial size is moderately dilated. Mild mitral valve regurgitation. Mitral annular calcification is present. Mild thickening of the mitral valve leaflets. Aortic valve sclerosis is present. Mild aortic valve regurgitation. There is mild tricuspid valve regurgitation. Normal estimated pulmonary pressures. BP: 130 / 69 HR: 60 Rhythm: Sinus MEASUREMENTS (Male / Female) Normal Values Technical Quality:Fair 2D ECHO LV Diastolic Diameter PLAX 4.6 cm 4.2 - 5.9 / 3.9 - 5.3 cm LV Systolic Diameter PLAX 2.8 cm IVS Diastolic Thickness 0.9 cm 0.6 - 1.0 / 0.6 - 0.9 cm LVPW Diastolic Thickness 0.9 cm 0.6 - 1.0 / 0.6 - 0.9 cm LV Relative Wall Thickness 0.4 LVOT Diameter 1.9 cm Aortic Root Diameter 2.8 cm LA Systolic Diameter LX 3.6 cm 3.0 - 4.0 / 2.7 - 3.8 cm LA Volume Index 25.6 cm/m 16 - 28 cm/m M-MODE AV Cusp Separation MM 1.9 cm DOPPLER AV Peak Velocity 162.0 cm/s AV Peak Gradient 10.5 mmHg AV Mean Gradient 5.5 mmHg AV Velocity Time Integral 36.2 cm LVOT Peak Velocity 88.7 cm/s LVOT Peak Gradient 3.1 mmHg LVOT Velocity Time Integral 19.2 cm LVOT Cardiac Index 1823.2 cm/minm AV Area Cont Eq vti 1.5 cm AV Area Cont Eq pk 1.6 cm Mitral E Point Velocity 55.8 cm/s Mitral A Point Velocity 112.0 cm/s Mitral E to A Ratio 0.5 LV E' Lateral Velocity 6.4 cm/s Mitral E to LV E' Lateral Ratio 8.7 LV E' Septal Velocity 5.8 cm/s Mitral E to LV E' Septal Ratio 9.7 TR Peak Velocity 233.0 cm/s TR Peak Gradient 21.7 mmHg PV Peak Velocity 42.1 cm/s PV Peak Gradient 0.7 mmHg FINDINGS LEFT VENTRICLE Normal left ventricular size. Wall thickness is normal. The left ventricular systolic function is normal. LEFT ATRIUM The left atrial size is moderately dilated. MITRAL VALVE Mild mitral valve regurgitation. Mitral annular calcification is present. Mild thickening of the mitral valve leaflets. AORTIC VALVE Aortic valve sclerosis is present. Mild aortic valve regurgitation. TRICUSPID VALVE There is mild tricuspid valve regurgitation. Normal estimated pulmonary pressures. Riley Turner MD, FACC (Electronically Signed) Final Date:15 February 2017 20:40
== END 2017-02-15 20:14 | disposition home or self-care (01) ==
LOC: NEPE 12:59 → NEDA 16:48 → NEPHCDU 19:01
PROVIDERS: ADMIT Family Medicine; ATTEND Family Medicine
DX: R55 Syncope and collapse (principal); E86.0 Dehydration; R94.31 Abnormal electrocardiogram [ECG] [EKG]; R00.1 Bradycardia, unspecified; R06.02 Shortness of breath; I25.10 Atherosclerotic heart disease of native coronary artery without angina pectoris; I10 Essential (primary) hypertension; E78.00 Pure hypercholesterolemia, unspecified; I48.91 Unspecified atrial fibrillation; J45.909 Unspecified asthma, uncomplicated; I25.2 Old myocardial infarction; E07.9 Disorder of thyroid, unspecified; K21.9 Gastro-esophageal reflux disease without esophagitis; K44.9 Diaphragmatic hernia without obstruction or gangrene; K75.9 Inflammatory liver disease, unspecified; R33.9 Retention of urine, unspecified; M19.90 Unspecified osteoarthritis, unspecified site; F17.210 Nicotine dependence, cigarettes, uncomplicated; Z79.899 Other long term (current) drug therapy; Z96.653 Presence of artificial knee joint, bilateral; Z86.73 Personal history of transient ischemic attack (TIA), and cerebral infarction without residual deficits
CPT/HCPCS: 71010; 80048; 80053; 82550; 83735; 84443; 84484; 85025; 85610; 85730; 93005; 93306; 93880; 96360; 96361; 96372; G0378; J1650; J7030

== ENCOUNTER 2017-04-28 10:12 | Emergency (ER) | payer OTHER ==
[~2017-04-28 10:12] MED LIST changes: -ALBU8I INH; -ASPI81 CHEW; +ATOR80TA45 PO; +BACL10TA PO; +BENZ1CAP54 PO; -DILTCD300 PO; -FLON0.053; +ISOS60TA PO; -LATA0.00 OP; -LISI-360 PO; +LOSA50TA2 PO; -MONT10TA2 PO; +MONT10TA4 PO; -Meclizine Hcl PO; -OMEP20TA PO; +OMEP20TA93 PO; +OXYB5TAB8 PO; +PANT20TA2 PO; -PRED20 PO; -ZITH250T PO
[2017-04-28 10:14] VITALS: BP 180/82; PULSE 86; RESP 16; TEMP 98.2; O2SAT 95
[2017-04-28] MEDS ORDERED: ORPHENADRINE INJ 60 MG/2 ML AMP IM ONE (10:45)
[2017-04-28] MEDS ORDERED: KETOROLAC TROMETHAMINE 60 MG/2 ML (IM) VIAL IM ONE (10:45)
[2017-04-28] MEDS ORDERED: MEDR4PAK PO (10:50)
[2017-04-28] MEDS ORDERED: BACL10TA PO (10:50)
--- NOTE | 2017-04-28 10:50 | PD ---
HPI Chief Complaint: Pain: Acute or Chronic Time Seen by Provider: 10:25 Travel History International Travel<30 days: No Contact w/Intl Traveler<30days: No Traveled to known affect area: No History of Present Illness HPI The patient is a 76-year-old Janae female who presents to the emergency department for 4 day history of right sided neck pain that radiates to his right shoulder. The patient states she cannot recall specific injury to the area, however, does complain of tenderness of the right trapezius. The pain is worse when she looks to the right, minimal pain when she looks to the left, but no pain with flexion or extension of the neck. She also complains of mild pain with certain movements of the right shoulder. Most of her pain is over the right trapezius, mild to moderate, and described as sharp. The patient cannot recall sleeping wrong or any specific lifting injuries to the affected area. She denies any headache, fever, chills, or sweats. PFSH Past Medical History Anemia: Yes Arthritis: Yes Asthma: Yes Atrial Fibrillation: Yes Autoimmune Disease: No Blood Disorders: No Anxiety: No Depression: No Heart Rhythm Problems: Yes (AFIB) Cancer: No Cardiac Catheterization: Yes Cardiovascular Problems: Yes (HTN) High Cholesterol: Yes Cerebrovascular Accident: Yes Diabetes: No Endocrine: No Gastrointestinal Disorders: Yes GERD: Yes Genitourinary: Yes (urgency) Headaches: Yes Hepatitis: Yes Hiatal Hernia: Yes Hypertension: Yes Immune Disorder: No Implanted Vascular Access Dvce: Yes Kidney Stones: No Musculoskeletal: Yes Neurologic: Yes (CVA 2001) Psychiatric: No Respiratory: Yes (pneumonia, asthma) Immunizations Current: No Migraines: No Myocardial Infarction: Yes Renal Failure: No Seizures: No Thyroid Disease: Yes Ulcer: No Tetanus Vaccination: < 5 Years ?: Not Menopausal: Yes : 4 Para: 4 Past Surgical History Abdominal Surgery: Yes AICD: No Appendectomy: Yes Arteriovenous Shunt: No Endocrine Surgery: No Genitourinary Surgery: Yes Gynecologic Surgery: No Hysterectomy: Yes Joint Replacement: Yes (BILATERAL KNEES) Pacemaker: No Other Surgery: Yes (thyroid) Social History Alcohol Use: No Tobacco Use: Yes (4 cig day) Substance Use: No Allergies-Medications (Allergen,Severity, Reaction): Coded Allergies: aspirin (Unverified Adverse Reaction, Severe, STOMACH UPSET, 04/28/17) Reported Meds & Prescriptions Reported Meds & Active Scripts Active Reported Omeprazole 20 Mg Tab 20 Mg PO DAILY Atorvastatin (Atorvastatin Calcium) 80 Mg Tab 80 Mg PO HS Ditropan (Oxybutynin Chloride) 5 Mg Tab 5 Mg PO HS Baclofen 10 Mg Tab 10 Mg PO BID Pantoprazole (Pantoprazole Sodium) 20 Mg Tab 20 Mg PO DAILY Losartan-Hydrochlorothiazide 50-12.5 Mg Tab 1 Tab PO DAILY Isosorbide Mononitrate ER (Isosorbide Mononitrate) 60 Mg Tab 60 Mg PO DAILY Review of Systems Except as stated in HPI: all other systems reviewed are Neg General / Constitutional: No: Fever, Chills Eyes: No: Photophobia HENT: Positive: Neck Pain, No: Headaches, Neck Stiffness Cardiovascular: No: Chest Pain or Discomfort Respiratory: No: Shortness of Breath Gastrointestinal: No: Nausea, Vomiting Musculoskeletal: Positive: Limited ROM, Pain Skin: No Rash Neurologic: No: Paresthesia, Sensory Disturbance Physical Exam Narrative GENERAL: Awake, alert, pleasant 76-year-old female who appears her stated age and is in no acute respiratory distress. SKIN: Focused skin assessment warm/dry. HEAD: Atraumatic. Normocephalic. EYES: No injection or drainage. ENT: No nasal bleeding or discharge. Mucous membranes pink and moist. NECK: Trachea midline. No JVD. Tenderness of the right trapezius, minimal tenderness of the right sternocleidomastoid. Pain is elicited with rotation of the head to the right as well as palpation of the right trapezius. The patient is able to extend the shoulder to 90 and abduct to 90, has mild pain with lifting her right shoulder but 90 of the right trapezius. No meningeal signs noted. MUSCULOSKELETAL: No obvious deformities. No clubbing. No cyanosis. No edema. Positive right radial pulse. I'm able to passively abduct, extend, and raising right arm above her head without difficulty. NEUROLOGICAL: Awake and alert. No obvious cranial nerve deficits. Motor grossly within normal limits. Normal speech. Nonfocal. Oriented 4. Follows commands without difficulty. PSYCHIATRIC: Appropriate mood and affect; insight and judgment normal. Data Data Last Documented VS Vital Signs Date Time Temp Pulse Resp B/P (MAP) Pulse Ox O2 Delivery O2 Flow Rate FiO2 04/28/17 10:14 98.2 86 16 180/82 (114) 95 Orders Orders Ketorolac Inj (Toradol Inj) (04/28/17 10:45) Orphenadrine Inj (Norflex Inj) (04/28/17 10:45) Apply Cervical Collar (04/28/17 10:43) MDM Medical Decision Making Medical Screen Exam Complete: Yes Emergency Medical Condition: Yes Medical Record Reviewed: Yes Differential Diagnosis Differential diagnosis includes torticollis, trapezius muscle strain, sprain, strain, radiculopathy. Narrative Course The patient's pain appears to be mostly over the right trapezius with obvious tenderness and mild swelling/edema compared to the left trapezius. The patient was administered Toradol 30 mg IM and Norflex 60 mg IM. She will be discharged home on a Medrol Dosepak and baclofen. She will also be placed in a cervical soft collar for, for. She is advised to follow-up with her primary physician and return if symptoms worsen or progress. Diagnosis Primary Impression: Trapezius muscle spasm Patient Instructions: General Instructions Additional Instructions: Medications as directed. Cervical soft collar as needed. Apply heat over the affected area. Follow-up with your primary physician. Return if symptoms worsen or progress. Med/Other Pt SpecificInfo: Prescription(s) given Scripts Baclofen (Baclofen) 10 Mg Tab 10 MG PO TID for Muscle Spasm for 7 Days, TAB 0 Refills Prov: Deejay Bills MD 04/28/17 Methylprednisolone Dosepak (Medrol Dosepak) 4 Mg Dspk 4 MG PO DIRECTED, #1 DSPK 0 Refills Per Pharmacist direction Prov: Deejay Bills MD 04/28/17 Disposition: 01 DISCHARGE HOME Condition: Stable Deejay Bills MD Apr 28, 2017 10:50
== END 2017-04-28 11:08 | disposition home or self-care (01) ==
LOC: NEPD 10:12
DX: M62.838 Other muscle spasm (principal); D64.9 Anemia, unspecified; M19.90 Unspecified osteoarthritis, unspecified site; J45.909 Unspecified asthma, uncomplicated; I48.91 Unspecified atrial fibrillation; I10 Essential (primary) hypertension; E78.00 Pure hypercholesterolemia, unspecified; K21.9 Gastro-esophageal reflux disease without esophagitis; Z86.19 Personal history of other infectious and parasitic diseases
CPT/HCPCS: 96372; 99284; J1885; J2360

== ENCOUNTER 2017-05-02 11:49 | Inpatient (IN) | payer OTHER, MEDICARE ==
[2017-05-02] VITALS (20 sets, daily range): BP systolic 142–210; BP diastolic 65–114; PULSE 51–72; RESP 15–22; TEMP 97.5–99.2; O2SAT 97–100
[~2017-05-02] VITALS: Ht 162.6 cm; Wt 69.2 kg
[~2017-05-02 11:49] MED LIST changes: -BENZ1CAP54 PO; +MEDR4PAK PO; -MONT10TA4 PO
[2017-05-02] MEDS ORDERED: IODIXANOL 320 MG/ML 10 ML VIAL (for Rad CT) IVCONTRAST ONE (12:16)
[2017-05-02 12:18] LABS: I-STAT POTASSIUM 3.9 MMOL/L (3.5-4.9)
[2017-05-02 12:25] LABS: AUTOMATED NEUTROPHIL # 8.4 TH/MM3 (1.8-7.7); BASOPHIL # 0.1 TH/MM3 (0-0.2); BASOPHIL % 0.8 % (0.0-2.0); EOSINOPHIL # 0.1 TH/MM3 (0-0.4); EOSINOPHIL % 0.5 % (0.0-4.0); HEMATOCRIT 42.6 % (35.0-46.0); HEMO FLAGS DIFF FINAL; LYMPH % 25.1 % (9.0-44.0); LYMPHOCYTE # 3.2 TH/MM3 (1.0-4.8); MEAN CELL VOLUME 87.4 FL (80.0-100.0); MEAN CORPUSCULAR HGB CONC 33.2 % (32.0-36.0); MONO % 7.9 % (0.0-8.0); NEUT % 65.7 % (16.0-70.0); PLATELET COUNT 203 TH/MM3 (150-450); RED BLOOD COUNT 4.87 MIL/MM3 (4.00-5.30); RED CELL DISTRIBUTION WIDTH 16.2 % (11.6-17.2); WHITE BLOOD COUNT 12.8 TH/MM3 (4.0-11.0)
[2017-05-02 12:30] LABS: APTT (PATIENT) 23.7 SEC (24.3-30.1); INTERNATIONAL NORMALIZED RATIO 1.1 RATIO; PROTHROMBIN TIME - PATIENT 11.1 SEC (9.8-11.6)
[2017-05-02] MEDS ORDERED: MISCELLANEOUS NURSING INFORMATION XX PRN (12:30)
[2017-05-02] MEDS ORDERED: SODIUM CHLORIDE 0.9% 50 ML BAG IVF ONE (12:30)
--- NOTE | 2017-05-02 12:34 | RADRPT ---
EXAM DATE/TIME: 05/02/2017 12:09 [facility] COMPARISON: No previous studies available for comparison. INDICATIONS : Stroke alert. Expressive aphasia, right facial droop, right sided weakness. IV CONTRAST: 75 cc Visipaque (iodixanol) IV ; Cumulative dose for multiple exams. RADIATION DOSE: 26.78 CTDIvol (mGy) ; Combined studies MEDICAL HISTORY : Hypertension. SURGICAL HISTORY : None. ENCOUNTER: Initial ACUITY: 1 day PAIN SCALE: 0/10 LOCATION: neck Elevated flow velocities and ICA/CCA ratios have been found to correlate with increased degrees of vessel stenosis, calculated as percentage of diameter relative to a normal segment of distal ICA/CCA. TECHNIQUE: Volumetric scanning was performed using a multirow detector CT scanner. The data was post processed with a variety of visualization algorithms including full-volume maximum intensity projection, multip lanar sliding thin-slab reformation, curved-planar reformation, and surface-rendering techniques. Us ing automated exposure control and adjustment of the mA and/or kV according to patient size, radiatio n dose was kept as low as reasonably achievable to obtain optimal diagnostic quality images. DICOM f ormat image data is available electronically for review and comparison. FINDINGS: Desiccation right thyroid gland. AORTIC ARCH: There is a three-vessel origin of the great vessels from the aorta. No evidence of ostial narrowing. RIGHT CAROTID: The common carotid artery is intact. The carotid bulb has a normal configuration without ulceration o r narrowing. The internal carotid artery lumen is smooth without stenosis. The external carotid ibeth ry is intact. LEFT CAROTID: The common carotid artery has an eccentric short segment soft plaque shortly after its origin. It tucker s not cause a significant stenosis The carotid bulb has a normal configuration without ulceration or narrowing. The internal carotid artery lumen is smooth without stenosis. The external carotid arter y is intact. VERTEBRALS: The vertebral arteries have a symmetric diameter. No stenotic lesions are seen. CONCLUSION: Normal examination except for a very short segment soft plaque in the left common carotid artery infe riorly. No evidence of significant stenosis. Min Kim MD on May 02, 2017 at 12:30 Board Certified Radiologist. This report was verified electronically.
--- NOTE | 2017-05-02 12:36 | RADRPT ---
EXAM DATE/TIME: 05/02/2017 12:09 [facility] COMPARISON: No previous studies available for comparison. INDICATIONS : Stroke alert. Expressive aphasia, right facial droop, right sided weakness. IV CONTRAST: 75 cc Visipaque (iodixanol) IV ; Cumulative dose for multiple exams. RADIATION DOSE: 26.78 CTDIvol (mGy) ; Combined studies MEDICAL HISTORY : Hypertension. SURGICAL HISTORY : None. ENCOUNTER: Initial ACUITY: 1 day PAIN SCALE: 0/10 LOCATION: cranial TECHNIQUE: Volumetric scanning was performed using a multi-row detector CT scanner. The data was post processed with a variety of visualization algorithms including full volume maximum intensity projection, multi -planar sliding thin slab reformation, curved planar reformation, and surface rendering techniques. Using automated exposure control and adjustment of the mA and/or kV according to patient size, radiat ion dose was kept as low as reasonably achievable to obtain optimal diagnostic quality images. DICO M format image data is available electronically for review and comparison. FINDINGS: There is excellent visualization of the major intracranial arteries out to the second-order branch ve ssels. There is no evidence for aneurysm, vessel truncation or stenosis, and no evidence for vascula r malformation. <The right posterior cerebral artery is hypoplastic with a prominent posterior communicating artery. I do not see any obvious stenosis or aneurysm. The sides are symmetric.> CONCLUSION: Prominent posterior communicating artery on the right supplying the majority of the posterior cerebra l flow. No evidence of aneurysm or stenosis. Min Kim MD on May 02, 2017 at 12:33 Board Certified Radiologist. This report was verified electronically.
--- NOTE | 2017-05-02 12:37 | RADRPT ---
EXAM DATE/TIME: 05/02/2017 12:02 [facility] COMPARISON: CT BRAIN W/O CONTRAST, July 04, 2015, 18:14. INDICATIONS : Stroke alert. Expressive aphasia, right facial droop, right sided weakness. RADIATION DOSE: 31.89 CTDIvol (mGy) This report was called by Dr Guerrier to Dr Gilbert at 1233 MEDICAL HISTORY : Hypertension. SURGICAL HISTORY : None. ENCOUNTER: Initial ACUITY: 1 day PAIN SCALE: 0/10 LOCATION: cranial TECHNIQUE: Multiple contiguous axial images were obtained of the head. Using automated exposure control and adj ustment of the mA and/or kV according to patient size, radiation dose was kept as low as reasonably a chievable to obtain optimal diagnostic quality images. DICOM format image data is available electro nically for review and comparison. FINDINGS: CEREBRUM: Atrophy. The ventricles are normal for age. No evidence of midline shift, mass lesion, hemorrhage or acute infarction. No extra-axial fluid collections are seen. POSTERIOR FOSSA: The cerebellum and brainstem are intact. The 4th ventricle is midline. The cerebellopontine angle i s unremarkable. EXTRACRANIAL: The visualized portion of the orbits is intact. SKULL: The calvaria is intact. No evidence of skull fracture. CONCLUSION: 1. No acute intracranial abnormality. 2. Atrophy. Ernesto Guerrier Jr., MD on May 02, 2017 at 12:07 Board Certified Radiologist. This report was verified electronically.
[2017-05-02] MEDS ORDERED: ALTEPLASE DRIP IV ONE (12:45)
[2017-05-02] MEDS ORDERED: ALTEPLASE BOLUS 9 MG/9 ML SYR IV ONE (12:45)
--- NOTE | 2017-05-02 13:03 | PD ---
HPI Chief Complaint: Stroke Alert Time Seen by Provider: 11:58 Travel History International Travel<30 days: No Contact w/Intl Traveler<30days: No Traveled to known affect area: No History of Present Illness HPI 76yo F with PMH of HTN, CAD, afib not on anticoagulation here with complain of sudden onset aphasia. Last normal was 11:30am. Pt's daughter was with her and all of a sudden, pt was not able to speak. On exam, she had right facial droop , severe aphasia and NIH stroke scale of 12. Stroke alert was called. Pt was hypertensive and nicardipine drip was ordered. Pt return to the bed after CT and repeat BP was 175/91 so nicardipine drip was not started. Discussed with Dr. 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 PFSH Past Medical History Anemia: Yes Arthritis: Yes Asthma: Yes Atrial Fibrillation: Yes Autoimmune Disease: No Blood Disorders: No Anxiety: No Depression: No Heart Rhythm Problems: Yes (AFIB) Cancer: No Cardiac Catheterization: Yes Cardiovascular Problems: Yes (HTN) High Cholesterol: Yes Cerebrovascular Accident: Yes Diabetes: No Endocrine: No Gastrointestinal Disorders: Yes GERD: Yes Genitourinary: Yes (urgency) Headaches: Yes Hepatitis: Yes Hiatal Hernia: Yes Hypertension: Yes Immune Disorder: No Implanted Vascular Access Dvce: Yes Kidney Stones: No Musculoskeletal: Yes Neurologic: Yes (CVA 2001) Psychiatric: No Respiratory: Yes (pneumonia, asthma) Immunizations Current: No Migraines: No Myocardial Infarction: Yes Renal Failure: No Seizures: No Thyroid Disease: Yes Ulcer: No ?: Not Menopausal: Yes : 4 Para: 4 Past Surgical History Abdominal Surgery: Yes AICD: No Appendectomy: Yes Arteriovenous Shunt: No Endocrine Surgery: No Genitourinary Surgery: Yes Gynecologic Surgery: No Hysterectomy: Yes Joint Replacement: Yes (BILATERAL KNEES) Pacemaker: No Other Surgery: Yes (thyroid) Social History Alcohol Use: No Tobacco Use: Yes (4 cig day) Substance Use: No Allergies-Medications (Allergen,Severity, Reaction): Coded Allergies: aspirin (Unverified Adverse Reaction, Severe, STOMACH UPSET, 05/02/17) Reported Meds & Prescriptions Reported Meds & Active Scripts Active Baclofen 10 Mg Tab 10 Mg PO TID 7 Days Medrol Dosepak (Methylprednisolone) 4 Mg Dspk 4 Mg PO DIRECTED Per Pharmacist direction Reported Omeprazole 20 Mg Tab 20 Mg PO DAILY Atorvastatin (Atorvastatin Calcium) 80 Mg Tab 80 Mg PO HS Ditropan (Oxybutynin Chloride) 5 Mg Tab 5 Mg PO HS Baclofen 10 Mg Tab 10 Mg PO BID Pantoprazole (Pantoprazole Sodium) 20 Mg Tab 20 Mg PO DAILY Losartan-Hydrochlorothiazide 50-12.5 Mg Tab 1 Tab PO DAILY Isosorbide Mononitrate ER (Isosorbide Mononitrate) 60 Mg Tab 60 Mg PO DAILY Review of Systems ROS Limitations: Clinical Condition Physical Exam Narrative GENERAL: 76yo F in moderate distress. SKIN: Focused skin assessment warm/dry. HEAD: Atraumatic. Normocephalic. EYES: Pupils equal and round at 4mm bilaterally. ENT: No nasal bleeding or discharge. Mucous membranes pink and moist. NECK: Trachea midline. No JVD. CARDIOVASCULAR: Regular rate and rhythm. No murmur appreciated. RESPIRATORY: No accessory muscle use. Clear to auscultation. Breath sounds equal bilaterally. GASTROINTESTINAL: Abdomen soft, non-tender, nondistended. MUSCULOSKELETAL: No obvious deformities. No clubbing. No cyanosis. No edema. NEUROLOGICAL: Awake and alert. Severe aphasia. If you lift her extremities and tell her to keep it there, she is able to. Unable to test for sensation. NIH stroke scale 12. Data Data Last Documented VS Vital Signs Date Time Temp Pulse Resp B/P (MAP) Pulse Ox O2 Delivery O2 Flow Rate FiO2 05/02/17 13:02 63 18 170/81 (110) 98 Nasal Cannula 2.00 05/02/17 11:[address] Brain W/O Iv Contrast(Rout) (05/02/17 ) Electrocardiogram (05/02/17 ) I-Stat Creatinine (05/02/17 11:58) I-Stat Profile (05/02/17 11:58) Prothrombin Time / Inr (Pt) (05/02/17 11:58) Act Partial Throm Time (Ptt) (05/02/17 11:58) Complete Blood Count With Diff (05/02/17 11:58) Creatine Kinase (Cpk) (05/02/17 11:58) Type And Screen (05/02/17 11:58) Cta Brain W Iv Contrast W 3d (05/02/17 11:58) Cta Neck W Iv Contrast W 3d (05/02/17 11:58) Iodixanol 320 Inj (Rad Ct) (Visipaque 32 (05/02/17 12:16) ^ Call Pharmacy (05/02/17 12:20) Nih Stroke Scale - Nihss .ONCE (05/02/17 12:20) Urinary Catheter Insert/Apply (05/02/17 12:20) Anticoagulant Alert (05/02/17 12:20) ^ Post Infusion Restrictions (05/02/17 12:20) ^ Medication Alert (05/02/17 12:20) Vital Signs (Adult) .As directed (05/02/17 12:20) Notify Dr: Blood Pressure (05/02/17 12:20) ^ Medication Alert (05/02/17 12:20) Sodium Chloride 0.9% Inj (Ns Inj) (05/02/17 12:30) Misc Nursing Information (05/02/17 12:30) Resp Oxygen Jairo C Titrat 1-4 L (05/02/17 ) Alteplase Bolus (Activase Bolus) (05/02/17 12:45) Alteplase Drip (Activase Drip) (05/02/17 12:45) Nih Stroke Scale - Nihss .As directed (05/02/17 13:08) Hemoglobin (Hgb) A1c (05/03/17 06:00) Lipid Profile (05/03/17 06:00) Consult Pt Eval & Treat (05/02/17 13:08) Ot Request For Service (05/02/17 13:08) Speech Therapy Consult-Eval/Tx (05/02/17 13:08) Consult Rehab Medicine (05/02/17 ) Case Management Consult (05/02/17 ) Mri Brain W/O Contrast (05/02/17 ) Admit Order (Ed Use Only) (05/02/17 13:11) Labs Laboratory Tests Test 05/02/17 11:50 White Blood Count 12.8 TH/MM3 Red Blood Count 4.87 MIL/MM3 Hemoglobin 14.1 GM/DL Bedside Hemoglobin 14.6 G/DL Hematocrit 42.6 % Bedside Hematocrit 43.0 % Mean Corpuscular Volume 87.4 FL Mean Corpuscular Hemoglobin 29.0 PG Mean Corpuscular Hemoglobin Concent 33.2 % Red Cell Distribution Width 16.2 % Platelet Count 203 TH/MM3 Mean Platelet Volume 9.5 FL Neutrophils (%) (Auto) 65.7 % Lymphocytes (%) (Auto) 25.1 % Monocytes (%) (Auto) 7.9 % Eosinophils (%) (Auto) 0.5 % Basophils (%) (Auto) 0.8 % Neutrophils # (Auto) 8.4 TH/MM3 Lymphocytes # (Auto) 3.2 TH/MM3 Monocytes # (Auto) 1.0 TH/MM3 Eosinophils # (Auto) 0.1 TH/MM3 Basophils # (Auto) 0.1 TH/MM3 CBC Comment DIFF FINAL Differential Comment Prothrombin Time 11.1 SEC Prothromb Time International Ratio 1.1 RATIO Activated Partial Thromboplast Time 23.7 SEC Bedside Sodium 140 MMOL/L Bedside Potassium 3.9 MMOL/L Bedside Chloride 105 MMOL/L Bedside Blood Urea Nitrogen 17 MG/DL Bedside Creatinine 0.9 MG/DL Bedside Glucose 97 MG/DL Phosphorus Level 2.5 MG/DL Magnesium Level 2.0 MG/DL Total Creatine Kinase 96 U/L Vitamin B12 Level 509 PG/ML Folate 6.0 NG/ML Thyroid Stimulating Hormone 3rd Gen 1.660 uIU/ML [facility] Medical Decision Making Medical Screen Exam Complete: Yes Emergency Medical Condition: Yes Interpretation(s) EKG: NSR 68bpm. LAD. TWI III. Mild ST depression II, aVF, V5, V6. Differential Diagnosis CVA vs. ICH Narrative Course 76yo F with severe aphasia and right facial droop half an hour prior to arrival. Stroke alert called. Nicardipine drip was taken out but not given because repeat BP is less than 180/105. Labs reviewed, leukocytosis at 12.8. BMP unremarkable. CT brain negative. CTA brain showed no aneurysm or stenosis. CTA neck showed no evidence of significant stenosis. Discussed with Dr. Aldana and TPA initiated. Discussed with Dr. Wadsworth and pt accepted to his service. Critical Care Narrative Aggregate critical care time was 40 minutes. Time to perform other separately billable procedures was not included in the critical care time. My time did not include minutes spent treating any other patients simultaneously or on activities that did not directly contribute to the patient's treatment. The services I provided to this patient were to treat and/or prevent clinically significant deterioration that could result in: cardiovascular collapse or . I provided critical care services requiring my management, as noted below: Chart data review, documentation time, medication orders and management, vital sign assessments/reviewing monitor data, ordering and reviewing lab tests, ordering and interpreting/reviewing x-rays and diagnostic studies, care of the patient and discussion of the patient with the admitting physicians. Diagnosis Primary Impression: CVA (cerebral vascular accident) Qualified Codes: I63.9 - Cerebral infarction, unspecified Admitting Information Admitting Physician Requests: it Asmita Gilbert DO May 02, 2017 13:03
[2017-05-02] MEDS ORDERED: RESP: ALBUTEROL 2.5 MG/IPRATROPIUM 0.5 MG NEB (PRN) INH (13:45)
[2017-05-02] MEDS ORDERED: BISACODYL 10 MG SUPP RECTAL PRN (13:45)
[2017-05-02] MEDS ORDERED: SENNOSIDES 8.6 MG TAB PO PRN (13:45)
[2017-05-02] MEDS ORDERED: CHLORHEXIDINE GLUCONATE 2 % 1 PACK (2 CLOTHS) TOP PRN (13:45)
[2017-05-02] MEDS ORDERED: MISCELLANEOUS NURSING INFORMATION XX SCH (13:45)
[2017-05-02] MEDS ORDERED: LACTULOSE SYRUP 20 GM/30 ML CUP PO PRN (13:45)
[2017-05-02] MEDS ORDERED: SODIUM CHLORIDE 0.9% FLUSH 10 ML FLUSH IV FLUSH PRN (13:45)
[2017-05-02] MEDS ORDERED: MAGNESIUM HYDROXIDE SUSP 30 ML CUP PO PRN (13:45)
[2017-05-02] MEDS: SODIUM CHLOR 0.9% 1000 ML INJ 1,000 ML IV SCH (14:18)
--- NOTE | 2017-05-02 15:08 | EKG ---
Date Performed: 05/02/2017 Time Performed: 12:23:07 PTAGE: 76 years EKG: Baseline artifact present Sinus rhythm NONSPECIFIC T-WAVE ABNORMALITY BORDERLINE ECG No significant change from prior electrocardiogram. PREVIOUS TRACING : 02/15/2017 01.46 DOCTOR: Juan Price Interpretating Date/Time 05/02/2017 15:06:23
--- NOTE | 2017-05-02 15:30 | HHI.HP ---
[facility] Service Critical Care Medicine Primary Care Physician SOFI Mcleod Admission Diagnosis CVA Diagnosis: (1) Acute left frontal CVA Diagnosis: Principal (2) Aphasia Diagnosis: Principal (3) s/p TPA administration Diagnosis: Principal (4) Atrial fibrillation, chronic Diagnosis: Secondary (5) HTN (hypertension) Diagnosis: Secondary (6) Coronary artery disease Diagnosis: Secondary (7) Hypothyroid Diagnosis: Secondary Chief Complaint: Acute Left frontal CVA, severe expressive aphasia Travel History International Travel<30 Days: No Contact w/Intl Traveler <30 Da: No Traveled to Known Affected Are: No History of Present Illness Patient is a 76-year-old female with past medical history significant for atrial fibrillation not on anticoagulation, coronary artery disease, hypertension, presented to the emergency department with sudden onset aphasia and some weakness involving the right upper extremity and right facial drooping. Patient was brought in the ED as a stroke alert. On exam by ED physician Dr. Gilbert, she had right facial droop, severe aphasia and NIH stroke scale of 12. Patient was hypertensive 210/96, and nicardipine drip was started. Stat CT of the head was negative for acute findings. Case discussed with neurologist Dr. Aldana, by Dr. Gilbert and TPA was administered. Post TPA CT angiogram of the brain and neck was unremarkable, MRI of the brain showed abnormal 2.7 x 1.6 cm area of signal in the posterior left frontal region consistent with an acute stroke. I evaluated the patient in the ICU. Patient remains hypertensive according to family aphasia is slightly improved even though patient is not able to say complete words, 5 right upper extremity weakness also is better. Patient remains hypertensive keep systolic blood pressure less than 185 Review of Systems ROS Limitations: Clinical Condition (Aphasic), Other (Aphasic, unable to obtain ) Past Family Social History Allergies: Coded Allergies: aspirin (Unverified Adverse Reaction, Severe, STOMACH UPSET, 05/02/17) Past Medical History Atrial fibrillation Hypertension Coronary artery disease Anemia Tobacco abuse Hyperlipidemia Asthma GERD Hiatal hernia History of Myocardial infarction Thyroid disease Past Surgical History Appendectomy Hysterectomy Thyroidectomy Bilateral knee replacement Reported Medications BBaclofen 10 Mg Tab 10 Mg PO TID 7 Days Medrol Dosepak (Methylprednisolone) 4 Mg Dspk 4 Mg PO DIRECTED Per Pharmacist direction Reported Omeprazole 20 Mg Tab 20 Mg PO DAILY Atorvastatin (Atorvastatin Calcium) 80 Mg Tab 80 Mg PO HS Ditropan (Oxybutynin Chloride) 5 Mg Tab 5 Mg PO HS Baclofen 10 Mg Tab 10 Mg PO BID Pantoprazole (Pantoprazole Sodium) 20 Mg Tab 20 Mg PO DAILY Losartan-Hydrochlorothiazide 50-12.5 Mg Tab 1 Tab PO DAILY Isosorbide Mononitrate ER (Isosorbide Mononitrate) 60 Mg Tab 60 Mg PO DAILY Active Ordered Medications s/p TPA Family History Aphasic, unable to obtain Social History Smokes about 4 cigarettes a day Physical Exam Vital Signs Vital Signs Date Time Temp Pulse Resp B/P (MAP) Pulse Ox O2 Delivery O2 Flow Rate FiO2 05/02/17 14:46 56 18 146/65 (92) 100 Nasal Cannula 2.00 05/02/17 14:34 98.8 05/02/17 14:32 60 17 180/85 (116) 100 Nasal Cannula 2.00 05/02/17 14:17 66 19 173/92 (119) 100 Room Air 2.00 05/02/17 14:02 63 19 172/78 (109) 100 Nasal Cannula 2.00 05/02/17 13:47 58 19 177/81 (113) 100 Nasal Cannula 2.00 05/02/17 13:31 62 19 168/89 (115) 100 Nasal Cannula 2.00 05/02/17 13:17 63 15 162/86 (111) 100 Nasal Cannula 2.00 05/02/17 13:02 63 18 170/81 (110) 98 Nasal Cannula 2.00 05/02/17 12:37 65 15 161/83 (109) 100 Nasal Cannula 2.00 05/02/17 12:21 72 175/91 (119) 05/02/17 12:06 97 2.00 05/02/17 12:06 98 2.00 05/02/17 11:56 72 194/87 (122) 05/02/17 11:54 99.2 68 17 210/96 (134) 98 Physical Exam GENERAL: Elderly female who is in mild distress due to aphasia SKIN: warm/dry. HEAD: Atraumatic. Normocephalic. EYES: Pupils equal and round at 4mm bilaterally. ENT: No nasal bleeding or discharge. Edentulous NECK: Trachea midline. No JVD. CARDIOVASCULAR: Regular rate and rhythm. No murmur appreciated. Hypertensive RESPIRATORY: No accessory muscle use. Clear to auscultation. Breath sounds equal bilaterally. GASTROINTESTINAL: Abdomen soft, non-tender, nondistended. MUSCULOSKELETAL: No obvious deformities. No clubbing. No cyanosis. No edema. NEUROLOGICAL: Awake and alert. Expressive aphasia. 4/5 power RUE, no gross weakness of extremities. Laboratory Laboratory Tests Test 05/02/17 11:50 White Blood Count 12.8 Red Blood Count 4.87 Hemoglobin 14.1 Bedside Hemoglobin 14.6 Hematocrit 42.6 Bedside Hematocrit 43.0 Mean Corpuscular Volume 87.4 Mean Corpuscular Hemoglobin 29.0 Mean Corpuscular Hemoglobin Concent 33.2 Red Cell Distribution Width 16.2 Platelet Count 203 Mean Platelet Volume 9.5 Neutrophils (%) (Auto) 65.7 Lymphocytes (%) (Auto) 25.1 Monocytes (%) (Auto) 7.9 Eosinophils (%) (Auto) 0.5 Basophils (%) (Auto) 0.8 Neutrophils # (Auto) 8.4 Lymphocytes # (Auto) 3.2 Monocytes # (Auto) 1.0 Eosinophils # (Auto) 0.1 Basophils # (Auto) 0.1 CBC Comment DIFF FINAL Differential Comment Prothrombin Time 11.1 Prothromb Time International Ratio 1.1 Activated Partial Thromboplast Time 23.7 Bedside Sodium 140 Bedside Potassium 3.9 Bedside Chloride 105 Bedside Blood Urea Nitrogen 17 Bedside Creatinine 0.9 Bedside Glucose 97 Total Creatine Kinase 96 Result Diagram: 05/02/17 1150 Imaging MRI brain: Abnormal 2.7 x 1.6 cm area of signal in the posterior left frontal region consistent with an acute stroke. CTA head and neck no acute findings Caprini VTE Risk Assessment Caprini VTE Risk Assessment: Mod/High Risk (score >= 2) VTE Pharm Contraindication: post TPA Caprini Risk Assessment Model Point Value = 1 Point Value = 2 Point Value = 3 Point Value = 5 Age 41-60 Minor surgery BMI > 25 kg/m2 Swollen legs Varicose veins or History of unexplained or recurrent spontaneous Oral contraceptives or hormone replacement Sepsis (< 1 month) Serious lung disease, including pneumonia (< 1 month) Abnormal pulmonary function Acute myocardial infarction Congestive heart failure (< 1 month) History of inflammatory bowel disease Medical patient at bed rest Age 61-74 Arthroscopic surgery Major open surgery (> 45 min) Laparoscopic surgery (> 45 min) Malignancy Confined to bed (> 72 hours) Immobilizing plaster cast Central venous access Age >= 75 History of VTE Family history of VTE Factor V Leiden Prothrombin [id number] Lupus anticoagulant Anticardiolipin antibodies Elevated serum homocysteine Heparin-induced thrombocytopenia Other congenital or acquired thrombophilia Stroke (< 1 month) Elective arthroplasty Hip, pelvis, or leg fracture Acute spinal cord injury (< 1 month) Prophylaxis Regimen Total Risk Factor Score Risk Level Prophylaxis Regimen 0-1 Low Early ambulation 2 Moderate Order ONE of the following: *Sequential Compression Device (SCD) *Heparin 5000 units SQ BID 3-4 Higher Order ONE of the following medications: *Heparin 5000 units SQ TID *Enoxaparin/Lovenox 40 mg SQ daily (WT < 150 kg, CrCl > 30 mL/min) *Enoxaparin/Lovenox 30 mg SQ daily (WT < 150 kg, CrCl > 10-29 mL/min) *Enoxaparin/Lovenox 30 mg SQ BID (WT < 150 kg, CrCl > 30 mL/min) AND/OR *Sequential Compression Device (SCD) 5 or more Highest Order ONE of the following medications: *Heparin 5000 units SQ TID (Preferred with Epidurals) *Enoxaparin/Lovenox 40 mg SQ daily (WT < 150 kg, CrCl > 30 mL/min) *Enoxaparin/Lovenox 30 mg SQ daily (WT < 150 kg, CrCl > 10-29 mL/min) *Enoxaparin/Lovenox 30 mg SQ BID (WT < 150 kg, CrCl > 30 mL/min) AND *Sequential Compression Device (SCD) Assessment and Plan Assessment and Plan A/P NEURO: Acute left frontal CVA Aphasia s/p TPA administration - Patient given TPA for acute stroke - MRI of the brain post TPA shows left frontal stroke - Start aspirin in 24 hours, start Lipitor - Target systolic blood pressure less than 185 - CT imaging in 24 hours - Check TSH, B12, folic acid, LDL - PT/OT/speech RESP: Tobacco abuse - Nasal cannula oxygen - DuoNeb every 6 hours when necessary - Aggressive pulmonary toilet CV: Atrial fibrillation, chronic Permissive hypertension Coronary artery disease - Normal saline maintenance IV fluids - Check 2-D echo - CT angiogram of the brain and neck negative for acute findings - Cardene infusion and hydralazine IV when necessary to target systolic blood pressure less than 185 - Hold home medications at this time GI: - Nothing by mouth, speech therapy eval for aphagia and swallow eval - IV famotidine : - Monitor renal function closely. Strict intake output ID: - Monitor for infections HEME: - Monitor CBC, CMP, coags, fibrinogen ENDO: Hypothyroidism - Restart thyroid replacement medications in 24 hrs - Electrolyte replacement protocol PROPH: - Bilateral lower extremity SCDs. IV Famotidine LINES: - Utilize peripheral IVs CC time 35 min Code Status Full Problem Qualifiers (1) HTN (hypertension): Qualified Codes: I10 - Essential (primary) hypertension (2) Coronary artery disease: Yin Nath MD May 02, 2017 15:30
--- NOTE | 2017-05-02 15:30 | RADRPT ---
EXAM DATE/TIME: 05/02/2017 14:47 [facility] COMPARISON: No previous studies available for comparison. INDICATIONS : Aphasia. Rt facial droop. MEDICAL HISTORY : Hypertension. Hypercholesterolemia. Chronic obstructive pulmonary disease. [place], Afib SURGICAL HISTORY : Appendectomy. Bilateral knee ENCOUNTER: Initial ACUITY: 1 day PAIN SCORE: 0/10 LOCATION: cranial TECHNIQUE: Multiplanar, multisequence MRI of the brain was performed without contrast. FINDINGS: CEREBRUM: In the posterior left frontal lobe there is a 2.7 x 1.6 cm area of increased signal on the diffusion weighted sequences suspicious for an acute infarct. It extends to the mckinley matter. No other abnormal areas of edema are identified. There is no mass or mass effect. Ventricles are normal in caliber. WHITE MATTER: No significant signal abnormalities are seen in the white matter. POSTERIOR FOSSA: The cerebellum and brainstem are intact. The 4th ventricle is midline. The cerebellopontine angle is unremarkable. The cerebellar tonsils are normal in position. DIFFUSION IMAGING: No focal areas of restricted diffusion are seen. No evidence of acute infarction. EXTRACRANIAL: The visualized portions of the orbits and paranasal sinuses are unremarkable. CONCLUSION: Abnormal 2.7 x 1.6 cm area of signal in the posterior left frontal region consistent with an acute st roke. Min Kim MD on May 02, 2017 at 15:22 Board Certified Radiologist. This report was verified electronically.
[2017-05-02] MEDS ORDERED: POTASSIUM PHOSPHATE MONOBASIC 500 MG TAB PO PRN (16:45)
[2017-05-02] MEDS ORDERED: POTASSIUM CHLOR 40 MEQ PREMIX 100 ML IV PRN ×2 (16:45)
[2017-05-02] MEDS ORDERED: MAGNESIUM OXIDE 400 MG TAB PO PRN (16:45)
[2017-05-02] MEDS ORDERED: POTASSIUM CHLOR 20 MEQ PREMIX 100 ML IV PRN ×2 (16:45)
[2017-05-02] MEDS ORDERED: POTASSIUM PHOSPHATE INJ 30 MMOL in SODIUM CHLOR 0.9% 250 ML INJ 250 ML IV PRN (16:45)
[2017-05-02] MEDS ORDERED: SODIUM PHOSPHATE INJ 30 MMOL in SODIUM CHLOR 0.9% 250 ML INJ 240 ML IV PRN (16:45)
[2017-05-02] MEDS ORDERED: POTASSIUM PHOSPHATE MONOBASIC 500 MG TAB PO/TUBE PRN (16:45)
[2017-05-02] MEDS ORDERED: MAGNESIUM SULFATE INJ 2 GM in SODIUM CHLORIDE 0.9% INJ 96 ML IV PRN (16:45)
[2017-05-02] MEDS ORDERED: MAGNESIUM SULFATE INJ 4 GM in SODIUM CHLORIDE 0.9% INJ 92 ML IV PRN (16:45)
[2017-05-02] MEDS: ATORVASTATIN 80 MG TAB PO SCH (21:00)
[2017-05-02] MEDS: DOCUSATE SODIUM 50 MG/SENNA 8.6 MG TAB PO SCH (21:00)
[2017-05-02] MEDS: SODIUM CHLORIDE 0.9% FLUSH 10 ML FLUSH IV FLUSH SCH (21:00)
[2017-05-02] MEDS: FAMOTIDINE 20 MG/2 ML VIAL IV PUSH SCH (21:14)
[2017-05-03] VITALS (11 sets, daily range): BP systolic 150–168; BP diastolic 67–85; PULSE 52–97; RESP 10–22; TEMP 97–98.7; O2SAT 98–100
[2017-05-03] MEDS: CHLORHEXIDINE GLUCONATE 2 % 1 PACK (2 CLOTHS) TOP SCH (01:03)
[2017-05-03] MEDS: SODIUM CHLOR 0.9% 1000 ML INJ 1,000 ML IV SCH (02:07)
[2017-05-03] MEDS: hydrALAZINE HCL 20 MG/ML VIAL IV PUSH PRN ×3 (06:27→21:47)
[2017-05-03] MEDS: DOCUSATE SODIUM 50 MG/SENNA 8.6 MG TAB PO SCH ×2 (09:00→21:47)
[2017-05-03] MEDS: SODIUM CHLORIDE 0.9% FLUSH 10 ML FLUSH IV FLUSH SCH ×2 (09:00→21:48)
--- NOTE | 2017-05-03 09:05 | HHI.CCPN ---
Subjective Remarks/Hospital Course Patient is a 76-year-old female with past medical history significant for atrial fibrillation not on anticoagulation, coronary artery disease, hypertension, presented to the emergency department with sudden onset aphasia and some weakness involving the right upper extremity and right facial drooping. Patient was brought in the ED as a stroke alert. On exam by ED physician Dr. Gilbert, she had right facial droop, severe aphasia and NIH stroke scale of 12. Patient was hypertensive 210/96, and nicardipine drip was started. Stat CT of the head was negative for acute findings. Case discussed with neurologist Dr. Aldana, by Dr. Gilbert and TPA was administered. Post TPA CT angiogram of the brain and neck was unremarkable, MRI of the brain showed abnormal 2.7 x 1.6 cm area of signal in the posterior left frontal region consistent with an acute stroke. I evaluated the patient in the ICU. Patient remains hypertensive according to family aphasia is slightly improved even though patient is not able to say complete words, 5 right upper extremity weakness also is better. Patient remains hypertensive keep systolic blood pressure less than 185 SUBJ 05/03: No acute events overnight blood pressure better controlled not on Cardene. Remains aphasic, right-sided muscle weakness has resolved. Post TPA CT in the afternoon Objective Vital Signs Date Time Temp Pulse Resp B/P (MAP) Pulse Ox O2 Delivery O2 Flow Rate FiO2 05/03/17 08:00 98.4 83 18 152/67 (95) 99 05/03/17 07:42 21 05/03/17 07:00 Room Air Intake and Output 05/03/17 05/03/17 05/04/17 08:00 16:00 00:00 Intake Total 1295 ml Output Total 600 ml Balance 695 ml Result Diagram: 05/02/17 1150 Imaging MRI brain: Abnormal 2.7 x 1.6 cm area of signal in the posterior left frontal region consistent with an acute stroke. CTA head and neck no acute findings Objective Remarks GENERAL: Elderly female who is in mild distress due to aphasia SKIN: warm/dry. HEAD: Atraumatic. Normocephalic. EYES: Pupils equal and round at 4mm bilaterally. ENT: No nasal bleeding or discharge. Edentulous NECK: Trachea midline. No JVD. CARDIOVASCULAR: Regular rate and rhythm. No murmur appreciated. Hypertensive RESPIRATORY: No accessory muscle use. Clear to auscultation. Breath sounds equal bilaterally. GASTROINTESTINAL: Abdomen soft, non-tender, nondistended. MUSCULOSKELETAL: No obvious deformities. No clubbing. No cyanosis. No edema. NEUROLOGICAL: Awake and alert. Expressive aphasia. 4/5 power RUE, no gross weakness of extremities. A/P Assessment and Plan A/P NEURO: Acute left frontal CVA Aphasia s/p TPA administration - Patient given TPA for acute stroke - MRI of the brain post TPA shows left frontal stroke - Start aspirin in 24 hours, start Lipitor - Target systolic blood pressure less than 185 - CT imaging in 24 hours - Check TSH, B12, folic acid, LDL - PT/OT/speech RESP: Tobacco abuse - Nasal cannula oxygen - DuoNeb every 6 hours when necessary - Aggressive pulmonary toilet CV: Atrial fibrillation, chronic Permissive hypertension Coronary artery disease - Normal saline maintenance IV fluids - Check 2-D echo - CT angiogram of the brain and neck negative for acute findings - Cardene infusion and hydralazine IV when necessary to target systolic blood pressure less than 185 - Hold home medications at this time GI: - Nothing by mouth, speech therapy eval for aphagia and swallow eval - IV famotidine : - Monitor renal function closely. Strict intake output ID: - Monitor for infections HEME: - Monitor CBC, CMP, coags, fibrinogen ENDO: Hypothyroidism - Restart thyroid replacement medications in 24 hrs - Electrolyte replacement protocol PROPH: - Bilateral lower extremity SCDs. IV Famotidine LINES: - Utilize peripheral IVs CC time 35 min Yin Nath MD May 03, 2017 09:05
[2017-05-03] MEDS: FAMOTIDINE 20 MG/2 ML VIAL IV PUSH SCH ×2 (09:23→21:47)
--- NOTE | 2017-05-03 15:28 | RADRPT ---
EXAM DATE/TIME: 05/03/2017 14:18 [facility] COMPARISON: MRI BRAIN W/O CONTRAST, May 02, 2017, 14:47. CT BRAIN W/O CONTRAST, May 02, 2017, 12:02. INDICATIONS : 24hr post TPA. RADIATION DOSE: 56.35 CTDIvol (mGy) MEDICAL HISTORY : Cerebrovascular disease. SURGICAL HISTORY : None. ENCOUNTER: Initial ACUITY: 1 day PAIN SCALE: 0/10 LOCATION: cranial TECHNIQUE: Multiple contiguous axial images were obtained of the head. Using automated exposure control and adj ustment of the mA and/or kV according to patient size, radiation dose was kept as low as reasonably a chievable to obtain optimal diagnostic quality images. DICOM format image data is available electro nically for review and comparison. FINDINGS: There is an area of low attenuation change involving the cortex and underlying subcortical white eliane er within the left frontal lobe. This correlates to the abnormality seen on the prior MRI. This was n ot visible on the prior CT. This correlates to maturation of the underlying infarct. No hemorrhage is seen. No mass effect. Ventricles are normal in size. Paranasal sinuses, mastoid air cells, and rosario rium are unremarkable. CONCLUSION: 1. Small nonhemorrhagic infarction involving the left frontal lobe correlates to the abnormality seen on the prior MRI. Ernesto Guerrier Jr., MD on May 03, 2017 at 15:22 Board Certified Radiologist. This report was verified electronically.
[2017-05-03] MEDS: ATORVASTATIN 80 MG TAB PO SCH (21:47)
[2017-05-03] MEDS: HALOPERIDOL LACTATE 5 MG/ML AMP IV PUSH PRN (22:28)
--- NOTE | 2017-05-03 23:07 | HHI.PR ---
Review/Management Diagnosis Acute ischemic left frontal infarction Dysphasia s/p iv tPA H/o A fib HTN CAD Plan - Neuro checks Q1h - Follow up head CT scan - resume Aspirin 81 mg after 24 h of iv tPA and when head CT scan with no hemorrhage - Goal BP first 24 hours s/p tPA is < 180/105 - After 24 hours from receiving iv tPA, treat BP with goal of 135-140/75-80 - Speech therapy, recommendations are appreciated - PT/OT, recommendations are appreciated - DVT prophylaxis - GI prophylaxis - Discussed case with RN Diagnosis/Plan: Subjective Subjective Comments Patient is s/p iv tPA No family at bed side Discussed with RN Some improvement in speech Moves right side MRI brain with acute ischemic left parietal infarction Active Medications Current Medications Medications (Trade) Dose Ordered Sig/Freda Route Start Time Stop Time Status Last Admin (NS Flush) 2 ml UNSCH PRN IV FLUSH 05/02/17 13:45 (NS Flush) 2 ml BID IV FLUSH 05/02/17 21:00 05/03/17 21:48 (Pepcid Inj) 20 mg Q12HR IV PUSH 05/02/17 21:00 05/03/17 21:47 (Duoneb Neb) 1 ampule Q4HR NEB PRN INH 05/02/17 13:45 Miscellaneous Information 1 Q361D XX 05/02/17 13:45 05/02/17 16:09 (Chlorhexidine 2% Cloth) 3 pack Taper DAILY@04 TOP 05/03/17 04:00 04/29/18 03:59 (Chlorhexidine 2% Cloth) 3 pack UNSCH PRN TOP 05/02/17 13:45 (Shanique-Colace) 1 tab BID PO 05/02/17 21:00 05/03/17 21:47 (Milk Of Magnesia Liq) 30 ml Q12H PRN PO 05/02/17 13:45 (Senokot) 17.2 mg Q12H PRN PO 05/02/17 13:45 (Dulcolax Supp) 10 mg DAILY PRN RECTAL 05/02/17 13:45 (Lactulose Liq) 30 ml DAILY PRN PO 05/02/17 13:45 (Lipitor) 80 mg HS PO 05/02/17 21:00 05/03/17 21:47 Potassium Chloride 100 ml @ 50 mls/hr Q2H PRN IV 05/02/17 16:45 Potassium Chloride 100 ml @ 50 mls/hr Q2H PRN IV 05/02/17 16:45 Potassium Chloride 100 ml @ 25 mls/hr UNSCH PRN IV 05/02/17 16:45 Potassium Chloride 100 ml @ 50 mls/hr Q2H PRN IV 05/02/17 16:45 Magnesium Sulfate 4 gm/Sodium Chloride 100 ml @ 50 mls/hr UNSCH PRN IV 05/02/17 16:45 (Mag-Ox) 800 mg UNSCH PRN PO 05/02/17 16:45 Magnesium Sulfate 2 gm/Sodium Chloride 100 ml @ 50 mls/hr UNSCH PRN IV 05/02/17 16:45 (K-Phos) 2,000 mg Q4H PRN PO 05/02/17 16:45 Sodium Phosphate 30 mmol/Sodium Chloride 250 ml @ 42 mls/hr UNSCH PRN IV 05/02/17 16:45 (K-Phos) 2,000 mg UNSCH PRN PO/TUBE 05/02/17 16:45 Potassium Phosphate 30 mmol/ Sodium Chloride 260 ml @ 42 mls/hr UNSCH PRN IV 05/02/17 16:45 (Apresoline Inj) 20 mg Q4H PRN IV PUSH 05/02/17 16:45 05/03/17 21:47 (Haldol Inj) 2 mg Q6HR PRN IV PUSH 05/03/17 22:15 05/03/17 22:28 Allergies Allergies Coded Allergies aspirin (Unverified Adverse Reaction, Severe, STOMACH UPSET, 05/02/17) Review of Systems All other ROS: ROS reviewed as documented in chart Exam I&O / VS 05/03/17 05/03/17 05/04/17 15:00 23:00 07:00 Intake Total 282 ml 240 ml Output Total 1450 ml Balance 282 ml -1210 ml Intake Oral 240 ml IV Total 282 ml Output Urine Total 1450 ml Stool Total 0 ml Vital Signs Date Time Temp Pulse Resp B/P (MAP) Pulse Ox O2 Delivery O2 Flow Rate FiO2 05/03/17 18:00 Room Air 05/03/17 16:32 97.0 91 22 164/73 (103) 99 05/03/17 16:00 93 05/03/17 14:00 97 05/03/17 12:00 96 05/03/17 12:00 98.7 95 20 162/72 (102) 98 05/03/17 10:00 82 05/03/17 08:00 98.4 83 18 152/67 (95) 99 05/03/17 08:00 75 05/03/17 07:42 98 21 05/03/17 07:00 100 Room Air 05/03/17 06:00 59 05/03/17 04:00 98.0 61 10 168/85 (112) 98 05/03/17 04:00 61 05/03/17 02:00 52 05/03/17 00:00 98.0 64 12 150/73 (98) 100 05/03/17 00:00 64 05/02/17 23:55 Nasal Cannula 3.00 General: No acute distress Eye: PERRL, Vision unchanged Respiratory: Lungs CTA, Non-labored respirations Cardiology: Normal rate, Intact pulses Neurologic: Alert, Normal motor, Normal DTR's, Other (Dysphasia, s to say some words, follows verbal commnads, open close eyes, stick out tongue, squeeze fingers, moves 4 extremities equally, plantars are b/l downgoing) Objective Radiology Results Last [address] 05/03/17 0000 Signed Impressions: Service Date/Time: Wednesday, May 03, 2017 14:18 - CONCLUSION: 1. Small nonhemorrhagic infarction involving the left frontal lobe correlates to the abnormality seen on the prior MRI. Ernesto Guerrier Jr., MD Neck CTA 05/02/17 1158 Signed Impressions: Service Date/Time: Tuesday, May 02, 2017 12:09 - CONCLUSION: Normal examination except for a very short segment soft plaque in the left common carotid artery inferiorly. No evidence of significant stenosis. Min Kim MD Head CTA 05/02/17 1158 Signed Impressions: Service Date/Time: Tuesday, May 02, 2017 12:09 - CONCLUSION: Prominent posterior communicating artery on the right supplying the majority of the posterior cerebral flow. No evidence of aneurysm or stenosis. Min Kim MD Head CT 05/02/17 0000 Signed Impressions: Service Date/Time: Tuesday, May 02, 2017 12:02 - CONCLUSION: 1. No acute intracranial abnormality. 2. Atrophy. Ernesto Guerrier Jr., MD Brain MRI 05/02/17 0000 Signed Impressions: Service Date/Time: Tuesday, May 02, 2017 14:47 - CONCLUSION: Abnormal 2.7 x 1.6 cm area of signal in the posterior left frontal region consistent with an acute stroke. Min Kim MD Micro and Labs Laboratory Tests Test 05/03/17 06:30 Nasal Screen MRSA (PCR) MRSA NOT DETECTED Jose Raul Perez MD May 03, 2017 23:06
[2017-05-04] VITALS (8 sets, daily range): BP systolic 165–182; BP diastolic 74–84; PULSE 77–110; RESP 18; TEMP 97.3–99.2; O2SAT 96–98
[2017-05-04] MEDS: CHLORHEXIDINE GLUCONATE 2 % 1 PACK (2 CLOTHS) TOP SCH ×2 (03:15→21:51)
[2017-05-04] MEDS: DOCUSATE SODIUM 50 MG/SENNA 8.6 MG TAB PO SCH ×2 (08:22→21:50)
[2017-05-04] MEDS: SODIUM CHLORIDE 0.9% FLUSH 10 ML FLUSH IV FLUSH SCH ×2 (08:23→21:51)
[2017-05-04] MEDS: FAMOTIDINE 20 MG/2 ML VIAL IV PUSH SCH ×2 (08:23→21:50)
[2017-05-04 08:25] LABS: LDL CHOLESTEROL 92 MG/DL (0-99)
--- NOTE | 2017-05-04 10:04 | HHI.PR ---
Subjective Remarks awake and alert ff all commands, moves all extremities spontaneously and to commands aphasic telemetry sinus- HR- 100- 110s Objective Vitals Vital Signs Date Time Temp Pulse Resp B/P (MAP) Pulse Ox O2 Delivery O2 Flow Rate FiO2 05/04/17 08:00 97.3 99 18 166/77 (106) 97 05/04/17 04:00 97.7 86 18 165/79 (107) 98 05/04/17 00:00 99.2 110 18 169/74 (105) 96 05/03/17 20:00 Room Air 05/03/17 18:00 Room Air 05/03/17 16:32 97.0 91 22 164/73 (103) 99 05/03/17 16:00 93 05/03/17 14:00 97 05/03/17 12:00 96 05/03/17 12:00 98.7 95 20 162/72 (102) 98 I/O 05/03/17 05/03/17 05/03/17 05/04/17 05/04/17 05/04/17 07:00 15:00 23:00 07:00 15:00 23:00 Intake Total 1295 ml 282 ml 240 ml Output Total 600 ml 1450 ml Balance 695 ml 282 ml -1210 ml Intake Oral 0 ml 240 ml IV Total 1295 ml 282 ml Output Urine Total 600 ml 1450 ml Stool Total 0 ml 0 ml # Voids 2 Result Diagram: 05/02/17 1150 Imaging Last Impressions Head CT 05/03/17 0000 Signed Impressions: Service Date/Time: Wednesday, May 03, 2017 14:18 - CONCLUSION: 1. Small nonhemorrhagic infarction involving the left frontal lobe correlates to the abnormality seen on the prior MRI. Ernesto Guerrier Jr., MD Neck CTA 05/02/17 1158 Signed Impressions: Service Date/Time: Tuesday, May 02, 2017 12:09 - CONCLUSION: Normal examination except for a very short segment soft plaque in the left common carotid artery inferiorly. No evidence of significant stenosis. Min Kim MD Head CTA 05/02/17 1158 Signed Impressions: Service Date/Time: Tuesday, May 02, 2017 12:09 - CONCLUSION: Prominent posterior communicating artery on the right supplying the majority of the posterior cerebral flow. No evidence of aneurysm or stenosis. Min Kim MD Brain MRI 05/02/17 0000 Signed Impressions: Service Date/Time: Tuesday, May 02, 2017 14:47 - CONCLUSION: Abnormal 2.7 x 1.6 cm area of signal in the posterior left frontal region consistent with an acute stroke. Min Kim MD Objective Remarks awake and alert, apasic, ff all commands anciteric no nuchal rigidity lungs- no rales regular rhythm aabdomen soft, nontender extremities no edema neuro exam- awake and alert but aphasic CN grossly intact moves all extrmeities spontaenously gait testing deferred A/P Problem List: (1) Acute left frontal CVA (2) Aphasia ICD Code: R47.01 - Aphasia (3) s/p TPA administration (4) Atrial fibrillation, chronic ICD Code: I48.2 - Atrial fibrillation, chronic Status: Chronic (5) HTN (hypertension) ICD Code: I10 - HTN (hypertension) Status: Chronic (6) Coronary artery disease ICD Code: I25.10 - Atherosclerotic heart disease of [place] coronary artery without angina pectoris Status: Chronic (7) Hypothyroid ICD Code: E03.9 - Hypothyroid Status: Acute Assessment and Plan 76 years old Acute left frontal CVA Aphasia s/p TPA administration - Patient given TPA for acute stroke - MRI of the brain post TPA shows left frontal stroke - Start aspirin tdoay 81 mg daily per Neuro recommendations - start Lipitor - PT/OT/speech- pureed diet RESP: Tobacco abuse - Nasal cannula oxygen - DuoNeb every 6 hours when necessary - Aggressive pulmonary toilet CV: Atrial fibrillation, chronic- currently in sinus thythm but tachycardic Permissive hypertension Coronary artery disease - Normal saline maintenance IV fluids - Check 2-D echo - CT angiogram of the brain and neck negative for acute findings - Cardene infusion and hydralazine IV when necessary to target systolic blood pressure less than 185 -- start BB - aSA GI: - speech ff- mechanical soft diet - speech tehrapy ongoing for aphasia - IV famotidine : - Monitor renal function closely. Strict intake output ID: - Monitor for infections HEME: - Monitor CBC, CMP, coags, fibrinogen ENDO: Hypothyroidism - Restart thyroid replacement medications i - Electrolyte replacement protocol PROPH: - Bilateral lower extremity SCDs. IV Famotidine LINES: - Utilize peripheral IVs 05/03- staff nurse Tania- called daughter- regarding listed allergy to Aspirin - apparent gets GI upset with high dose 325 mg but tolerated 81 mg will start today and monitor Problem Qualifiers (1) HTN (hypertension): Qualified Codes: I10 - Essential (primary) hypertension (2) Coronary artery disease: Corky Thakkar MD May 04, 2017 10:04
[2017-05-04] MEDS: ASPIRIN 81 MG CHEW TAB CHEW SCH (12:44)
[2017-05-04] MEDS: METOPROLOL TARTRATE 25 MG TAB PO SCH ×2 (12:44→21:50)
[2017-05-04 13:59] LABS: HEMOGLOBIN A1a 1.6 %; HEMOGLOBIN A1b 1.8 %; HEMOGLOBIN Ao 84.2 %; HEMOGLOBIN LA1C 2.1 %; HEMOGLOBIN P3 3.9 %
[2017-05-04] MEDS: HALOPERIDOL LACTATE 5 MG/ML AMP IV PUSH PRN ×2 (14:05→21:51)
--- NOTE | 2017-05-04 14:12 | HHI.PR ---
Review/Management Diagnosis Acute ischemic left frontal infarction Dysphasia s/p iv tPA H/o A fib HTN CAD Plan - Neuro checks Q4 h - Aspirin 81 mg - BP goal of 135-140/75-80 - Speech therapy, recommendations are appreciated - PT/OT, recommendations are appreciated - DVT prophylaxis - GI prophylaxis - Discussed case with RN - Patient will need inpatient rehab Diagnosis/Plan: Subjective Subjective Comments No acute events reported Patient lays comfortably in bed No family at bed side Follow up head CT scan with no evidence of hemorrhagic conversion Active Medications Current Medications Medications (Trade) Dose Ordered Sig/Freda Route Start Time Stop Time Status Last Admin (NS Flush) 2 ml UNSCH PRN IV FLUSH 05/02/17 13:45 (NS Flush) 2 ml BID IV FLUSH 05/02/17 21:00 05/04/17 08:23 (Pepcid Inj) 20 mg Q12HR IV PUSH 05/02/17 21:00 05/04/17 08:23 (Duoneb Neb) 1 ampule Q4HR NEB PRN INH 05/02/17 13:45 Miscellaneous Information 1 Q361D XX 05/02/17 13:45 05/02/17 16:09 (Chlorhexidine 2% Cloth) 3 pack Taper DAILY@04 TOP 05/03/17 04:00 04/29/18 03:59 (Chlorhexidine 2% Cloth) 3 pack UNSCH PRN TOP 05/02/17 13:45 (Shanique-Colace) 1 tab BID PO 05/02/17 21:00 05/04/17 08:22 (Milk Of Magnesia Liq) 30 ml Q12H PRN PO 05/02/17 13:45 (Senokot) 17.2 mg Q12H PRN PO 05/02/17 13:45 (Dulcolax Supp) 10 mg DAILY PRN RECTAL 05/02/17 13:45 (Lactulose Liq) 30 ml DAILY PRN PO 05/02/17 13:45 (Lipitor) 80 mg HS PO 05/02/17 21:00 05/03/17 21:47 Potassium Phosphate 30 mmol/ Sodium Chloride 260 ml @ 42 mls/hr UNSCH PRN IV 05/02/17 16:45 (Apresoline Inj) 20 mg Q4H PRN IV PUSH 05/02/17 16:45 05/03/17 21:47 (Haldol Inj) 2 mg Q6HR PRN IV PUSH 05/03/17 22:15 05/03/17 22:28 (Lopressor) 25 mg Q8H PO 05/04/17 11:00 05/04/17 12:44 (Aspirin Chew) 81 mg DAILY CHEW 05/04/17 10:30 05/04/17 12:44 Allergies Allergies Coded Allergies aspirin (Unverified Adverse Reaction, Severe, STOMACH UPSET, 05/02/17) Review of Systems All other ROS: ROS reviewed as documented in chart Exam I&O / VS 05/04/17 05/04/17 05/05/17 15:00 23:00 07:00 # Voids 2 Vital Signs Date Time Temp Pulse Resp B/P (MAP) Pulse Ox O2 Delivery O2 Flow Rate FiO2 05/04/17 10:07 97 21 05/04/17 08:00 97.3 99 18 166/77 (106) 97 05/04/17 04:00 97.7 86 18 165/79 (107) 98 05/04/17 00:00 99.2 110 18 169/74 (105) 96 05/03/17 20:00 Room Air 05/03/17 18:00 Room Air 05/03/17 16:32 97.0 91 22 164/73 (103) 99 05/03/17 16:00 93 Objective Radiology Results Last [address] 05/03/17 0000 Signed Impressions: Service Date/Time: Wednesday, May 03, 2017 14:18 - CONCLUSION: 1. Small nonhemorrhagic infarction involving the left frontal lobe correlates to the abnormality seen on the prior MRI. Ernesto Guerrier Jr., MD Micro and Labs Laboratory Tests Test 05/04/17 07:05 Triglycerides Level 89 Cholesterol Level 171 LDL Cholesterol 92 HDL Cholesterol 61.0 Cholesterol/HDL Ratio 2.80 Jose Raul Perez MD May 04, 2017 14:12
--- NOTE | 2017-05-04 15:52 | ECHRPT ---
Indication: AFIB CONCLUSIONS The left ventricular systolic function is normal with an estimated ejection fraction in the range of 55-60% Mild concentric left ventricular hypertrophy. Normal left ventricular size. Doppler parameters are consistent with impaired left ventricular relaxtion (grade 1 diastolic dysfun ction). The left atrial size is upper limits of normal. [id number] aortic valve regurgitation. BP: 168 / 85 HR: 61 Rhythm: MEASUREMENTS (Male / Female) Normal Values Technical Quality: 2D ECHO LV Diastolic Diameter PLAX 3.9 cm 4.2 - 5.9 / 3.9 - 5.3 cm LV Systolic Diameter PLAX 3.0 cm IVS Diastolic Thickness 1.4 cm 0.6 - 1.0 / 0.6 - 0.9 cm LVPW Diastolic Thickness 1.4 cm 0.6 - 1.0 / 0.6 - 0.9 cm LV Relative Wall Thickness 0.7 M-MODE Aortic Root Diameter MM 2.7 cm LA Systolic Diameter MM 4.3 cm LA Ao Ratio MM 1.6 AV Cusp Separation MM 1.7 cm DOPPLER AI Peak Velocity 423.5 cm/s AI Peak Gradient 71.7 mmHg AI Pressure Half Time 352.0 ms Mitral E Point Velocity 78.7 cm/s Mitral A Point Velocity 138.0 cm/s Mitral E to A Ratio 0.6 LV E' Lateral Velocity 6.7 cm/s Mitral E to LV E' Lateral Ratio 11.7 FINDINGS LEFT VENTRICLE The left ventricular systolic function is normal with an estimated ejection fraction in the range of 55-60% Mild concentric left ventricular hypertrophy. Normal left ventricular size. Doppler parameters are consistent with impaired left ventricular relaxtion (grade 1 diastolic dysfun ction). RIGHT VENTRICLE Normal right ventricular size and systolic function. LEFT ATRIUM The left atrial size is upper limits of normal. RIGHT ATRIUM The right atrial size is normal. ATRIAL SEPTUM Normal atrial septal thickness without atrial level shunting by limited color doppler interrogation. AORTA The aortic root and proximal ascending aorta are not well visualized. MITRAL VALVE No mitral valve regurgitation. AORTIC VALVE [id number] aortic valve regurgitation. Diffuse calcification of the aortic valve. TRICUSPID VALVE Structurally normal tricuspid valve. No tricuspid valve stenosis or regurgitation. PULMONARY VALVE No pulmonary valve regurgitation or stenosis. VESSELS The inferior vena cava is normal in size. PERICARDIUM No pericardial effusion. Soto Zepeda MD (Electronically Signed) Final Date:04 May 2017 15:51
[2017-05-04] MEDS: ATORVASTATIN 80 MG TAB PO SCH (21:50)
[2017-05-05] VITALS (7 sets, daily range): BP systolic 137–176; BP diastolic 64–79; PULSE 69–86; RESP 18–20; TEMP 97.7–99; O2SAT 95–98
[2017-05-05] MEDS: METOPROLOL TARTRATE 25 MG TAB PO SCH ×3 (03:52→22:18)
[2017-05-05] MEDS: DOCUSATE SODIUM 50 MG/SENNA 8.6 MG TAB PO SCH ×2 (09:00→22:17)
[2017-05-05] MEDS: FAMOTIDINE 20 MG/2 ML VIAL IV PUSH SCH ×2 (09:52→22:17)
[2017-05-05] MEDS: ASPIRIN 81 MG CHEW TAB CHEW SCH (09:52)
[2017-05-05] MEDS: SODIUM CHLORIDE 0.9% FLUSH 10 ML FLUSH IV FLUSH SCH ×2 (09:52→22:16)
[2017-05-05] MEDS ORDERED: LOSARTAN 25 MG TAB PO SCH (12:00)
--- NOTE | 2017-05-05 12:43 | HHI.PR ---
Subjective Remarks awake and alert, heart rate better controlled appears comfortable ff commands Objective Vitals Vital Signs Date Time Temp Pulse Resp B/P (MAP) Pulse Ox O2 Delivery O2 Flow Rate FiO2 05/05/17 12:00 98.6 80 18 167/79 (108) 98 05/05/17 08:00 98.7 79 18 176/77 (110) 95 05/05/17 07:33 98.7 84 18 137/64 (88) 97 05/05/17 00:00 97.7 86 18 175/77 (109) 98 05/04/17 21:29 96 05/04/17 20:00 98.4 87 18 181/82 (115) 98 05/04/17 16:00 98.2 77 18 171/81 (111) 97 I/O 05/04/17 05/04/17 05/04/17 05/05/17 05/05/17 05/05/17 07:00 15:00 23:00 07:00 15:00 23:00 # Voids 2 1 2 # Bowel Movements 0 Result Diagram: 05/02/17 1150 Imaging Last Impressions Head CT 05/03/17 0000 Signed Impressions: Service Date/Time: Wednesday, May 03, 2017 14:18 - CONCLUSION: 1. Small nonhemorrhagic infarction involving the left frontal lobe correlates to the abnormality seen on the prior MRI. Ernesto Guerrier Jr., MD Neck CTA 05/02/17 1158 Signed Impressions: Service Date/Time: Tuesday, May 02, 2017 12:09 - CONCLUSION: Normal examination except for a very short segment soft plaque in the left common carotid artery inferiorly. No evidence of significant stenosis. Min Kim MD Head CTA 05/02/17 1158 Signed Impressions: Service Date/Time: Tuesday, May 02, 2017 12:09 - CONCLUSION: Prominent posterior communicating artery on the right supplying the majority of the posterior cerebral flow. No evidence of aneurysm or stenosis. Min Kim MD Brain MRI 05/02/17 0000 Signed Impressions: Service Date/Time: Tuesday, May 02, 2017 14:47 - CONCLUSION: Abnormal 2.7 x 1.6 cm area of signal in the posterior left frontal region consistent with an acute stroke. Min Kim MD Objective Remarks awake and alert, aphasic, ff all commands anicteric no nuchal rigidity lungs- no rales regular rhythm aabdomen soft, nontender extremities no edema neuro exam- awake and alert but aphasic CN grossly intact moves all extremities spontaneously gait testing deferred A/P Problem List: (1) Acute left frontal CVA (2) Aphasia ICD Code: R47.01 - Aphasia (3) s/p TPA administration (4) Atrial fibrillation, chronic ICD Code: I48.2 - Atrial fibrillation, chronic Status: Chronic (5) HTN (hypertension) ICD Code: I10 - HTN (hypertension) Status: Chronic (6) Coronary artery disease ICD Code: I25.10 - Atherosclerotic heart disease of [place] coronary artery without angina pectoris Status: Chronic (7) Hypothyroid ICD Code: E03.9 - Hypothyroid Status: Acute Assessment and Plan 76 years old Acute left frontal CVA Aphasia s/p TPA administration - Patient given TPA for acute stroke - MRI of the brain post TPA shows left frontal stroke - Start aspirin y 81 mg daily per Neuro recommendations - start Lipitor - PT/OT/speech-ff - daily PT, pureed diet RESP: Tobacco abuse - Nasal cannula oxygen - DuoNeb every 6 hours when necessary - Aggressive pulmonary toilet CV: Atrial fibrillation, chronic- currently in sinus thythm but tachycardic- now in SR- rate controlled Hypertension Coronary artery disease - Normal saline maintenance IV fluids - Check 2-D echo- unremakable - CT angiogram of the brain and neck negative for acute findings - on Cozaa5 25 mg daily-. restart HCTZ 12.5 mg po daily - aSA GI: - speech ff- mechanical soft diet - speech therapy ongoing for aphasia - IV famotidine : - Monitor renal function closely. Strict intake output ID: - Monitor for infections HEME: - Monitor CBC, CMP, coags, fibrinogen ENDO: Hypothyroidism - Restarted synthroid - Electrolyte replacement protocol History of urinary incontinence - restart her Oxybutynin PROPH: - Bilateral lower extremity SCDs. IV Famotidine LINES: - Utilize peripheral IVs CM- SNF Problem Qualifiers (1) HTN (hypertension): Qualified Codes: I10 - Essential (primary) hypertension (2) Coronary artery disease: Corky Thakkar MD May 05, 2017 12:43
--- NOTE | 2017-05-05 14:58 | HHI.FF ---
Face to Face Verification Diagnosis: (1) Acute left frontal CVA (2) A-fib (3) Expressive aphasia Physical Therapy Order: Evaluate and Treat, Improve ambulation, Strength and gait training Occupational Therapy Order: Evaluate and Treat, Improve ADL, Gross motor coordination, Fine motor coordination Speech Therapy Order: To Improve: Speech and communication skills, Cognitive skills Home Health Nursing Order: Medical education Signs/symptoms of disease process Medication education-adverse effect Nursing assessment with vital signs Home Health Aide Order: To Assist In: Bathing and personal care Risk Management Manager Order: To Evaluate: Support services I have seen patient Ivanna Castillo on 05/05/17. My clinical findings support the need for the requested home health care services because: Deconditioned w/ increased weakness Need for psychosocial assistance High risk of falls I certify that my clinical findings support that this patient is homebound because: Unsteady gait/balance Need for psychosocial assistance Corky Thakkar MD May 05, 2017 14:58
[2017-05-05] MEDS: HYDROCHLOROTHIAZIDE 12.5 MG CAP PO SCH (15:15)
[2017-05-05] MEDS ORDERED: OXYBUTYNIN CHLORIDE 5 MG TAB PO SCH (21:00)
[2017-05-05] MEDS: ATORVASTATIN 80 MG TAB PO SCH (22:17)
[2017-05-05] MEDS: HALOPERIDOL LACTATE 5 MG/ML AMP IV PUSH PRN (22:17)
[2017-05-05] MEDS: CHLORHEXIDINE GLUCONATE 2 % 1 PACK (2 CLOTHS) TOP SCH (22:18)
[2017-05-06 00:55] VITALS: BP 136/64; PULSE 67; RESP 19; TEMP 98.9; O2SAT 97
[2017-05-06] MEDS: METOPROLOL TARTRATE 25 MG TAB PO SCH ×2 (03:48→10:31)
[2017-05-06 05:16] VITALS: BP 149/76; PULSE 67; RESP 19; TEMP 98.7; O2SAT 97
[2017-05-06 08:00] VITALS: BP 140/82; PULSE 103; PULSE 73; RESP 16; TEMP 98.4; O2SAT 97
--- NOTE | 2017-05-06 08:58 | HHI.PR ---
Subjective Remarks awake and alert, walked to bathroom voiding telemery sinus rhythm- rate 80s Objective Vitals Vital Signs Date Time Temp Pulse Resp B/P (MAP) Pulse Ox O2 Delivery O2 Flow Rate FiO2 05/06/17 08:00 98.4 73 16 140/82 (101) 97 05/06/17 05:16 98.7 67 19 149/76 (100) 97 05/06/17 00:55 98.9 67 19 136/64 (88) 97 05/05/17 21:12 99.0 78 20 146/67 (93) 97 05/05/17 16:00 98.0 69 18 165/78 (107) 98 05/05/17 12:44 98 05/05/17 12:00 98.6 80 18 167/79 (108) 98 I/O 05/05/17 05/05/17 05/05/17 05/06/17 05/06/17 05/06/17 07:00 15:00 23:00 07:00 15:00 23:00 # Voids 2 1 1 # Bowel Movements 0 Result Diagram: 05/02/17 1150 Imaging Last Impressions Head CT 05/03/17 0000 Signed Impressions: Service Date/Time: Wednesday, May 03, 2017 14:18 - CONCLUSION: 1. Small nonhemorrhagic infarction involving the left frontal lobe correlates to the abnormality seen on the prior MRI. Ernesto Guerrier Jr., MD Neck CTA 05/02/17 1158 Signed Impressions: Service Date/Time: Tuesday, May 02, 2017 12:09 - CONCLUSION: Normal examination except for a very short segment soft plaque in the left common carotid artery inferiorly. No evidence of significant stenosis. Min Kim MD Head CTA 05/02/17 1158 Signed Impressions: Service Date/Time: Tuesday, May 02, 2017 12:09 - CONCLUSION: Prominent posterior communicating artery on the right supplying the majority of the posterior cerebral flow. No evidence of aneurysm or stenosis. Min Kim MD Brain MRI 05/02/17 0000 Signed Impressions: Service Date/Time: Tuesday, May 02, 2017 14:47 - CONCLUSION: Abnormal 2.7 x 1.6 cm area of signal in the posterior left frontal region consistent with an acute stroke. Min Kim MD Objective Remarks awake and alert, aphasic, ff all commands anicteric no nuchal rigidity lungs- no rales regular rhythm abdomen soft, nontender extremities no edema neuro exam- awake and alert but aphasic CN grossly intact moves all extremities spontaneously up and ambulated with walker A/P Problem List: (1) Acute left frontal CVA (2) Aphasia ICD Code: R47.01 - Aphasia (3) s/p TPA administration (4) Atrial fibrillation, chronic ICD Code: I48.2 - Atrial fibrillation, chronic Status: Chronic (5) HTN (hypertension) ICD Code: I10 - HTN (hypertension) Status: Chronic (6) Coronary artery disease ICD Code: I25.10 - Atherosclerotic heart disease of [place] coronary artery without angina pectoris Status: Chronic (7) Hypothyroid ICD Code: E03.9 - Hypothyroid Status: Acute Assessment and Plan 76 years old Acute left frontal CVA Aphasia s/p TPA administration - Patient given TPA for acute stroke - MRI of the brain post TPA shows left frontal stroke - aspirin y 81 mg daily - Lipitor - PT/OT/speech-ff - daily PT, pureed diet RESP: Tobacco abuse - Nasal cannula oxygen- good sats at room air - DuoNeb every 6 hours when necessary - Aggressive pulmonary toilet CV: Atrial fibrillation, chronic-now in SR- rate controlled Hypertension Coronary artery disease - Check 2-D echo- unremakable - CT angiogram of the brain and neck negative for acute findings - on Cozaa5 - increase to 50 mg daily- home dose. continue - HCTZ 12.5 mg po daily - aSA GI: - speech ff- mechanical soft diet - speech therapy ongoing for aphasia ENDO: Hypothyroidism - Restarted synthroid - Electrolyte replacement protocol History of urinary incontinence - restart her Oxybutynin PROPH: - Bilateral lower extremity SCDs. IV Famotidine LINES: - Utilize peripheral IVs DC today with home ehalth PT/nursing patient with good family support PCP ffup as OP OP ff up with neurology Problem Qualifiers (1) HTN (hypertension): Qualified Codes: I10 - Essential (primary) hypertension (2) Coronary artery disease: Corky Thakkar MD May 06, 2017 08:58
[2017-05-06] MEDS: SODIUM CHLORIDE 0.9% FLUSH 10 ML FLUSH IV FLUSH SCH (09:00)
[2017-05-06] MEDS ORDERED: ASPI81 CHEW (09:04)
--- NOTE | 2017-05-06 09:09 | HHI.DS ---
Discharge Summary Admission Date May 02, 2017 at 13:13 Discharge Date: May 06, 2017 Admitting Diagnosis CVA (1) Acute left frontal CVA Diagnosis: Principal (2) Aphasia ICD Code: R47.01 - Aphasia Diagnosis: Principal (3) s/p TPA administration Diagnosis: Principal (4) Atrial fibrillation, chronic ICD Code: I48.2 - Atrial fibrillation, chronic Diagnosis: Secondary Status: Chronic (5) HTN (hypertension) ICD Code: I10 - HTN (hypertension) Diagnosis: Secondary Status: Chronic (6) Coronary artery disease ICD Code: I25.10 - Atherosclerotic heart disease of [place] coronary artery without angina pectoris Diagnosis: Secondary Status: Chronic (7) Hypothyroid ICD Code: E03.9 - Hypothyroid Diagnosis: Secondary Status: Acute Procedures none Brief History - From Admission Patient is a 76-year-old female with past medical history significant for atrial fibrillation not on anticoagulation, coronary artery disease, hypertension, presented to the emergency department with sudden onset aphasia and some weakness involving the right upper extremity and right facial drooping. Patient was brought in the ED as a stroke alert. On exam by ED physician Dr. Gilbert, she had right facial droop, severe aphasia and NIH stroke scale of 12. Patient was hypertensive 210/96, and nicardipine drip was started. Stat CT of the head was negative for acute findings. Case discussed with neurologist Dr. Aldana, by Dr. Gilbert and TPA was administered. Post TPA CT angiogram of the brain and neck was unremarkable, MRI of the brain showed abnormal 2.7 x 1.6 cm area of signal in the posterior left frontal region consistent with an acute stroke. I evaluated the patient in the ICU. Patient remains hypertensive according to family aphasia is slightly improved even though patient is not able to say complete words, 5 right upper extremity weakness also is better. Patient remains hypertensive keep systolic blood pressure less than 185 CBC/BMP: 05/02/17 1150 Significant Findings Laboratory Tests Test 05/04/17 07:05 HDL Cholesterol 61.0 MG/DL (40.0-60.0) Imaging Last Impressions Head CT 05/03/17 0000 Signed Impressions: Service Date/Time: Wednesday, May 03, 2017 14:18 - CONCLUSION: 1. Small nonhemorrhagic infarction involving the left frontal lobe correlates to the abnormality seen on the prior MRI. Ernesto Guerrier Jr., MD Neck CTA 05/02/17 1158 Signed Impressions: Service Date/Time: Tuesday, May 02, 2017 12:09 - CONCLUSION: Normal examination except for a very short segment soft plaque in the left common carotid artery inferiorly. No evidence of significant stenosis. Min Kim MD Head CTA 05/02/17 1158 Signed Impressions: Service Date/Time: Tuesday, May 02, 2017 12:09 - CONCLUSION: Prominent posterior communicating artery on the right supplying the majority of the posterior cerebral flow. No evidence of aneurysm or stenosis. Min Kim MD Brain MRI 05/02/17 0000 Signed Impressions: Service Date/Time: Tuesday, May 02, 2017 14:47 - CONCLUSION: Abnormal 2.7 x 1.6 cm area of signal in the posterior left frontal region consistent with an acute stroke. Min Kim MD PE at Discharge awake and alert, aphasic, ff all commands anicteric no nuchal rigidity lungs- no rales regular rhythm abdomen soft, nontender extremities no edema neuro exam- awake and alert but aphasic CN grossly intact moves all extremities spontaneously up and ambulated with walker Pt update on day of discharge awake and alert, attempts to talk- expressive aphasia tolerating po- pureed motivated with therapy good family support home with home PT/home health care Hospital Course 76 years old Acute left frontal CVA Aphasia s/p TPA administration - Patient given TPA for acute stroke - MRI of the brain post TPA shows left frontal stroke - aspirin y 81 mg daily - Lipitor - PT/OT/speech-ff - daily PT, pureed diet RESP: Tobacco abuse - Nasal cannula oxygen- good sats at room air - DuoNeb every 6 hours when necessary - Aggressive pulmonary toilet CV: Atrial fibrillation, chronic-now in SR- rate controlled Hypertension Coronary artery disease - Check 2-D echo- unremakable - CT angiogram of the brain and neck negative for acute findings - on Cozaa5 - increase to 50 mg daily- home dose. continue - HCTZ 12.5 mg po daily - aSA GI: - speech ff- mechanical soft diet - speech therapy ongoing for aphasia ENDO: Hypothyroidism - Restarted synthroid - Electrolyte replacement protocol History of urinary incontinence - restart her Oxybutynin PROPH: - Bilateral lower extremity SCDs. IV Famotidine LINES: - Utilize peripheral IVs DC today with home ehalth PT/nursing patient with good family support PCP ffup as OP OP ff up with neurology Pt Condition on Discharge: Stable Discharge Disposition: Disch w/ Home Health Serv Discharge Time: <= 30 minutes Discharge Instructions DIET: Follow Instructions for: Heart Healthy Diet Speech Therapy-Diet Recommends: Pureed Activities you can perform: Weight Bearing as Selena Activities to Avoid: Strenuous Activity Follow up Referrals: Neurology - 1 Week with Jose Raul Perez MD PCP Follow-up - 3-5 Days with [place] New Medications: Aspirin (Tgt Aspirin) 81 Mg Chw 81 MG CHEW DAILY for CVA for 30 Days, #30 EA 10 Refills Metoprolol Tartrate (Metoprolol Tartrate) 25 Mg Tab 25 MG PO Q8H for arrh/HTN for 30 Days, #90 TAB Continued Medications: Atorvastatin (Atorvastatin) 80 Mg Tab 80 MG PO HS for Cholesterol Management, #30 TAB 0 Refills Baclofen (Baclofen) 10 Mg Tab 10 MG PO TID for Muscle Spasm for 7 Days, TAB 0 Refills Isosorbide Mononitrate ER (Isosorbide Mononitrate ER) 60 Mg Tab 60 MG PO DAILY for Prevent Chest Pain, #30 TAB 0 Refills Losartan-Hydrochlorothiazide (Losartan-Hydrochlorothiazide) 50-12.5 Mg Tab 1 TAB PO DAILY for Blood Pressure Management, #30 TAB 0 Refills Omeprazole (Omeprazole) 20 Mg Tab 20 MG PO DAILY, #30 TAB 0 Refills Oxybutynin (Ditropan) 5 Mg Tab 5 MG PO HS for Urinary Symptom Managemen, #60 TAB 0 Refills Discontinued Medications: Methylprednisolone Dosepak (Medrol Dosepak) 4 Mg Dspk 4 MG PO DIRECTED, #1 DSPK 0 Refills Per Pharmacist direction Corky Thakkar MD May 06, 2017 09:09
[2017-05-06] MEDS: ASPIRIN 81 MG CHEW TAB CHEW SCH (09:16)
[2017-05-06] MEDS: HYDROCHLOROTHIAZIDE 12.5 MG CAP PO SCH (09:16)
[2017-05-06] MEDS: DOCUSATE SODIUM 50 MG/SENNA 8.6 MG TAB PO SCH (09:16)
[2017-05-06] MEDS: FAMOTIDINE 20 MG/2 ML VIAL IV PUSH SCH (09:17)
[2017-05-06] MEDS ORDERED: METO25TA3 PO (09:31)
[2017-05-06 12:00] VITALS: BP 136/82; PULSE 76; RESP 16; TEMP 98.1; O2SAT 96
[2017-05-07] MEDS ORDERED: LOSARTAN 50 MG TAB PO SCH (09:00)
== END 2017-05-06 15:38 | disposition home health service (06) | DRG 63 ==
LOC: NEPC 11:49 → NEDA 13:13 → N03B 15:12 → N05B 05-03 17:52
PROVIDERS: ADMIT Internal Medicine; ATTEND Internal Medicine
DX: I63.9 Cerebral infarction, unspecified (principal); R47.01 Aphasia; I48.2 Chronic atrial fibrillation; I10 Essential (primary) hypertension; E03.9 Hypothyroidism, unspecified; E78.5 Hyperlipidemia, unspecified; G83.21 Monoplegia of upper limb affecting right dominant side; R29.810 Facial weakness; R29.712 NIHSS score 12; I25.10 Atherosclerotic heart disease of native coronary artery without angina pectoris; I25.2 Old myocardial infarction; K21.9 Gastro-esophageal reflux disease without esophagitis; R47.02 Dysphasia; M19.90 Unspecified osteoarthritis, unspecified site; R32 Unspecified urinary incontinence; F17.210 Nicotine dependence, cigarettes, uncomplicated; Z86.73 Personal history of transient ischemic attack (TIA), and cerebral infarction without residual deficits; Z88.6 Allergy status to analgesic agent; Z96.653 Presence of artificial knee joint, bilateral
CPT/HCPCS: 51702; 70450; 70496; 70498; 70551; 80061; 82435; 82550; 82565; 82607; 82746; 82947; 83036; 83735; 84100; 84132; 84295; 84443; 84520; 85025; 85610; 85730; 86850; 86900; 86901; 87641; 93005; 93306; 96365; 96375; J0360; J1630; J2997; J7030; Q9967

== ENCOUNTER 2017-05-18 20:09 | Observation (INO) | payer MEDICARE, OTHER ==
[~2017-05-18] VITALS: Ht 157.5 cm; Wt 72.0 kg
[~2017-05-18 20:09] MED LIST changes: +ASPI81 CHEW; -MEDR4PAK PO; +METO25TA3 PO
[2017-05-18 20:10] VITALS: BP 203/94; PULSE 99; RESP 16; TEMP 97.9; O2SAT 98
[2017-05-18 20:24] VITALS: BP 228/102; PULSE 85; RESP 18; O2SAT 99
[2017-05-18] MEDS ORDERED: ASPIRIN 81 MG CHEW TAB PO ONE (20:30)
[2017-05-18] MEDS ORDERED: SODIUM CHLORIDE 0.9% FLUSH 10 ML FLUSH IVF PRN (20:30)
[2017-05-18] MEDS: NITROGLYCERIN 0.4 MG SL 25 TABS/BTL SL SCH ×3 (20:35→20:40)
--- NOTE | 2017-05-18 20:35 | PD ---
HPI Chief Complaint: Chest Pain Time Seen by Provider: 20:30 Travel History International Travel<30 days: No Contact w/Intl Traveler<30days: No Traveled to known affect area: No History of Present Illness HPI This is a 76-year-old female with history of hypertension, atrial fibrillation, coronary artery disease, admitted in April of this year for ischemic stroke with now residual severe aphasia. She presents with her granddaughter for evaluation of chest pain. Symptoms started 30 minutes prior to arrival. The patient was complaining of some substernal chest pain to her granddaughter. Quality, aggravating relieving factors are unable to be obtained secondary to the patient's aphasia. She does report that she has never had this type of pain in the past. During review of systems she endorses some degree of dyspnea. She denies nausea, vomiting, abdominal pain, fevers, chills, cough or congestion. She takes a baby aspirin daily. She has been compliant with blood pressure medication. No other complaints. PFSH Past Medical History Anemia: Yes Arthritis: Yes Asthma: Yes Atrial Fibrillation: Yes Autoimmune Disease: No Blood Disorders: No Anxiety: No Depression: No Heart Rhythm Problems: Yes (AFIB) Cancer: No Cardiac Catheterization: Yes Cardiovascular Problems: Yes (HTN) High Cholesterol: Yes Cerebrovascular Accident: Yes Diabetes: No Endocrine: No Gastrointestinal Disorders: Yes GERD: Yes Genitourinary: Yes (urgency) Headaches: Yes Hepatitis: Yes Hiatal Hernia: Yes Hypertension: Yes Immune Disorder: No Implanted Vascular Access Dvce: Yes Kidney Stones: No Musculoskeletal: Yes Neurologic: Yes (CVA 2001) Psychiatric: No Respiratory: Yes (pneumonia, asthma) Immunizations Current: No Migraines: No Myocardial Infarction: Yes Renal Failure: No Seizures: No Thyroid Disease: Yes Ulcer: No Menopausal: Yes : 4 Para: 4 Past Surgical History Abdominal Surgery: Yes AICD: No Appendectomy: Yes Arteriovenous Shunt: No Endocrine Surgery: No Genitourinary Surgery: Yes Gynecologic Surgery: No Hysterectomy: Yes Joint Replacement: Yes (BILATERAL KNEES) Pacemaker: No Other Surgery: Yes (thyroid) Social History Alcohol Use: No Tobacco Use: Yes (4 cig day) Substance Use: No Allergies-Medications (Allergen,Severity, Reaction): Coded Allergies: aspirin (Unverified Adverse Reaction, Severe, STOMACH UPSET, 05/02/17) Reported Meds & Prescriptions Reported Meds & Active Scripts Active Tgt Aspirin (Aspirin) 81 Mg Chw 81 Mg CHEW DAILY 30 Days Reported Atorvastatin (Atorvastatin Calcium) 80 Mg Tab 80 Mg PO HS Ditropan (Oxybutynin Chloride) 5 Mg Tab 5 Mg PO HS Baclofen 10 Mg Tab 10 Mg PO BID Pantoprazole (Pantoprazole Sodium) 20 Mg Tab 20 Mg PO DAILY Losartan-Hydrochlorothiazide 50-12.5 Mg Tab 1 Tab PO DAILY Review of Systems ROS Limitations: Other: (aphasia) Except as stated in HPI: all other systems reviewed are Neg Physical Exam Exam Limitations: Other: (aphasia) Narrative GENERAL: Well-developed well-nourished female in no acute distress. Hypertensive on initial examination. SKIN: Warm and dry. HEAD: Atraumatic. Normocephalic. EYES: Pupils equal and round. No scleral icterus. No injection or drainage. ENT: No nasal bleeding or discharge. Mucous membranes pink and moist. NECK: Trachea midline. No JVD. CARDIOVASCULAR: Regular rate and rhythm. No murmur appreciated. RESPIRATORY: No accessory muscle use. Clear to auscultation. Breath sounds equal bilaterally. GASTROINTESTINAL: Abdomen soft, non-tender, nondistended. Hepatic and splenic margins not palpable. MUSCULOSKELETAL: No obvious deformities. No clubbing. No cyanosis. No edema. NEUROLOGICAL: Awake and alert. No obvious cranial nerve deficits. Motor grossly within normal limits. Expressive aphasia noted. PSYCHIATRIC: Appropriate mood and affect; insight and judgment normal. Data Data Last Documented VS Vital Signs Date Time Temp Pulse Resp B/P (MAP) Pulse Ox O2 Delivery O2 Flow Rate FiO2 05/18/17 21:01 71 18 165/63 (97) 98 Room Air 05/18/17 20:10 97.9 Orders Orders Electrocardiogram (05/18/17 20:30) Basic Metabolic Panel (Bmp) (05/18/17 20:30) Ckmb (Isoenzyme) Profile (05/18/17 20:30) Complete Blood Count With Diff (05/18/17 20:30) Magnesium (Mg) (05/18/17 20:30) Prothrombin Time / Inr (Pt) (05/18/17 20:30) Act Partial Throm Time (Ptt) (05/18/17 20:30) Troponin I (05/18/17 20:30) Chest, Single Ap (05/18/17 20:30) Ecg Monitoring (05/18/17 20:30) Bilateral Bp Monitoring (05/18/17 20:30) Iv Access Insert/Monitor (05/18/17 20:30) Oximetry (05/18/17 20:30) Oxygen Administration (05/18/17 20:30) Aspirin Chew (Aspirin Chew) (05/18/17 20:30) Sodium Chloride 0.9% Flush (Ns Flush) (05/18/17 20:30) Nitroglycerin Sl (Nitrostat Sl) (05/18/17 20:30) Labetalol Inj (Trandate Inj) (05/18/17 20:45) Admit Order (Ed Use Only) (05/18/17 21:35) Labs Laboratory Tests Test 05/18/17 20:39 White Blood Count 11.9 TH/MM3 Red Blood Count 4.81 MIL/MM3 Hemoglobin 13.8 GM/DL Hematocrit 42.0 % Mean Corpuscular Volume 87.4 FL Mean Corpuscular Hemoglobin 28.6 PG Mean Corpuscular Hemoglobin Concent 32.7 % Red Cell Distribution Width 16.1 % Platelet Count 217 TH/MM3 Mean Platelet Volume 9.0 FL Neutrophils (%) (Auto) 63.4 % Lymphocytes (%) (Auto) 25.6 % Monocytes (%) (Auto) 8.6 % Eosinophils (%) (Auto) 1.5 % Basophils (%) (Auto) 0.9 % Neutrophils # (Auto) 7.5 TH/MM3 Lymphocytes # (Auto) 3.0 TH/MM3 Monocytes # (Auto) 1.0 TH/MM3 Eosinophils # (Auto) 0.2 TH/MM3 Basophils # (Auto) 0.1 TH/MM3 CBC Comment DIFF FINAL Differential Comment Prothrombin Time 11.4 SEC Prothromb Time International Ratio 1.1 RATIO Activated Partial Thromboplast Time 25.4 SEC Blood Urea Nitrogen 15 MG/DL Creatinine 0.95 MG/DL Random Glucose 96 MG/DL Calcium Level 9.1 MG/DL Magnesium Level 2.1 MG/DL Sodium Level 140 MEQ/L Potassium Level 3.8 MEQ/L Chloride Level 104 MEQ/L Carbon Dioxide Level 23.7 MEQ/L Anion Gap 12 MEQ/L Estimat Glomerular Filtration Rate 69 ML/MIN Total Creatine Kinase 79 U/L Troponin I LESS THAN 0.02 NG/ML MDM Medical Decision Making Medical Screen Exam Complete: Yes Emergency Medical Condition: Yes Medical Record Reviewed: Yes Differential Diagnosis Acute coronary syndrome, pericarditis, myocarditis, pneumothorax, pulmonary embolism, costochondritis Narrative Course The patient was placed on ECG monitoring and pulse oximetry. Twelve-lead EKG obtained revealing sinus rhythm. The patient has taken 81 mg of aspirin today, additional 243 mg has been ordered. The patient is noted to be hypertensive, sublingual nitroglycerin and IV labetalol have been ordered. Plan is for lab work, chest x-ray. Patient's blood pressure improved after sublingual nitroglycerin. Initial cardiac enzymes are negative. Chest x-ray is normal. At this point time the plan is to admit the patient has chest pain center for serial cardiac enzymes and rule out purposes. She is agreeable. Diagnosis Primary Impression: Chest pain Admitting Information Admitting Physician Requests: Vladislav Purvis May 18, 2017 20:35
[2017-05-18] MEDS ORDERED: LABETALOL HCL 100 MG/20 ML VIAL IV PUSH ONE (20:45)
[2017-05-18 20:46] VITALS: BP 171/75; PULSE 81; RESP 18; O2SAT 100
[2017-05-18 20:59] LABS: AUTOMATED NEUTROPHIL # 7.5 TH/MM3 (1.8-7.7); BASOPHIL # 0.1 TH/MM3 (0-0.2); BASOPHIL % 0.9 % (0.0-2.0); EOSINOPHIL # 0.2 TH/MM3 (0-0.4); EOSINOPHIL % 1.5 % (0.0-4.0); HEMOGLOBIN 13.8 GM/DL (11.6-15.3); LYMPH % 25.6 % (9.0-44.0); MEAN CELL VOLUME 87.4 FL (80.0-100.0); MEAN CORPUSCULAR HEMOGLOBIN 28.6 PG (27.0-34.0); MEAN CORPUSCULAR HGB CONC 32.7 % (32.0-36.0); MONO % 8.6 % (0.0-8.0); NEUT % 63.4 % (16.0-70.0); PLATELET COUNT 217 TH/MM3 (150-450); RED BLOOD COUNT 4.81 MIL/MM3 (4.00-5.30); RED CELL DISTRIBUTION WIDTH 16.1 % (11.6-17.2); WHITE BLOOD COUNT 11.9 TH/MM3 (4.0-11.0)
[2017-05-18 21:01] VITALS: BP 165/63; PULSE 71; RESP 18; O2SAT 98
[2017-05-18 21:09] LABS: INTERNATIONAL NORMALIZED RATIO 1.1 RATIO; PROTHROMBIN TIME - PATIENT 11.4 SEC (9.8-11.6)
--- NOTE | 2017-05-18 21:14 | RADRPT ---
EXAM DATE/TIME: 05/18/2017 20:49 [facility] COMPARISON: CHEST SINGLE AP, February 14, 2017, 14:34. INDICATIONS : Chest pain. MEDICAL HISTORY : Myocardial infarction. Stroke. Hypercholesterolemia. Cerebrovascular disease. Hypertension. A-fib . SURGICAL HISTORY : None. ENCOUNTER: Initial ACUITY: 1 day PAIN SCORE: 10/10 LOCATION: Left FINDINGS: A single view of the chest demonstrates the lungs to be symmetrically aerated without evidence of mas s, infiltrate or effusion. The cardiomediastinal contours are unremarkable. Osseous structures are intact. CONCLUSION: No acute disease. Flip Powell MD on May 18, 2017 at 21:12 Board Certified Radiologist. This report was verified electronically.
[2017-05-18 21:15] LABS: BICARBONATE 23.7 MEQ/L (21.0-32.0); BLOOD UREA NITROGEN 15 MG/DL (7-18); CALCIUM 9.1 MG/DL (8.5-10.1); CHLORIDE 104 MEQ/L (98-107); CREATININE 0.95 MG/DL (0.50-1.00); GLOMERULAR FILTRATION RATE 69 ML/MIN (>89); GLUCOSE,RANDOM 96 MG/DL (74-106); MAGNESIUM 2.1 MG/DL (1.5-2.5); SODIUM (NA) 140 MEQ/L (136-145)
[2017-05-18 21:19] LABS: TROPONIN I LESS THAN 0.02 NG/ML (0.02-0.05)
[2017-05-18] MEDS ORDERED: SODIUM CHLORIDE 0.9% FLUSH 10 ML FLUSH IV FLUSH PRN (21:45)
[2017-05-19 00:05] VITALS: BP 167/74; PULSE 66; RESP 18; TEMP 97.9; O2SAT 98
[2017-05-19 00:25] LABS: TROPONIN I 0.02 NG/ML (0.02-0.05)
[2017-05-19 03:14] VITALS: BP 162/74; PULSE 63; RESP 18; TEMP 98.1; O2SAT 98
[2017-05-19 03:41] LABS: TROPONIN I 0.02 NG/ML (0.02-0.05)
[2017-05-19 04:10] VITALS: PULSE 62
[2017-05-19 07:03] VITALS: BP 155/69; PULSE 66; RESP 18; TEMP 98.1; O2SAT 98
[2017-05-19 07:05] VITALS: PULSE 63
[2017-05-19] MEDS ORDERED: SODIUM CHLORIDE 0.9% FLUSH 10 ML FLUSH IV FLUSH SCH (09:00)
[2017-05-19] MEDS ORDERED: ASPIRIN 81 MG CHEW TAB CHEW SCH (10:15)
[2017-05-19] MEDS ORDERED: PANTOPRAZOLE SOD 20 MG DELAYED RELEASE TAB PO SCH (10:15)
--- NOTE | 2017-05-19 10:18 | HHI.HP ---
HPI Primary Care Physician SOFI Mcleod Chief Complaint Chest pain History of Present Illness This is a 76-year-old female that presents to ED with plan of developing a discomfort in her chest yesterday. Points a left-sided chest. Describes as squeezing. Cannot recall how long it lasted or how intense it was. She cannot recall her cardiac history. 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 States she still has a little trouble with her speech and has to walk with a cane Currently denies chest discomfort. Not recall being short of breath, nausea, or diaphoretic. Review of Systems General: Patient denies fevers, chills recent, and recent travel HEENT: Patient denies headache, sore throat, difficulty swallowing. Cardiovascular: Has the chest discomfort as mentioned above. Denies sensation of heart beating rapidly or irregularly. No syncope. Denies diaphoresis. Respiratory: Denies shortness of breath or inspirational chest discomfort. Denies coughing wheezing or hemoptysis. GI: Patient denies nausea, vomiting, diarrhea, abdominal pain, bloody stools. Musculoskeletal: Patient denies joint pain or edema. Denies calf pain or edema. Neurovascular: Still has some difficulty with speech after having CVA last month. Unsteady on her feet and walks with a cane. Patient denies numbness, tingling, weakness in extremities. Denies headache. Endocrine: Denies polyuria and polydipsia. Hematologic: Denies easy bruising. Skin: Denies rash or itching. Past Family Social History Allergies: Coded Allergies: aspirin (Unverified Adverse Reaction, Severe, STOMACH UPSET, 05/02/17) Past Medical History CVA last month. Hypertension, hyperlipidemia, atrial fibrillation, GERD, paroxysmal atrial ablation. Past Surgical History Bilateral knees. Appendectomy. Reported Medications Reported Meds & Active Scripts Active Tgt Aspirin (Aspirin) 81 Mg Chw 81 Mg CHEW DAILY 30 Days Reported Atorvastatin (Atorvastatin Calcium) 80 Mg Tab 80 Mg PO HS Ditropan (Oxybutynin Chloride) 5 Mg Tab 5 Mg PO HS Baclofen 10 Mg Tab 10 Mg PO BID Pantoprazole (Pantoprazole Sodium) 20 Mg Tab 20 Mg PO DAILY Losartan-Hydrochlorothiazide 50-12.5 Mg Tab 1 Tab PO DAILY Active Ordered Medications Current Medications Medications (Trade) Dose Ordered Sig/Freda Route Start Time Stop Time Status Last Admin (NS Flush) 2 ml UNSCH PRN IVF 05/18/17 20:30 (NS Flush) 2 ml UNSCH PRN IV FLUSH 05/18/17 21:45 (NS Flush) 2 ml BID IV FLUSH 05/19/17 09:00 05/19/17 07:59 (Lipitor) 80 mg HS PO 05/19/17 21:00 UNV (Lioresal) 10 mg BID PO 05/19/17 10:00 UNV (Ditropan) 5 mg HS PO 05/19/17 21:00 UNV (Protonix) 20 mg DAILY PO 05/19/17 10:00 UNV Non-Formulary Medication 1 tab DAILY PO 05/19/17 10:00 UNV (Aspirin Chew) 81 mg DAILY CHEW 05/19/17 10:15 UNV Family History Patient is not aware of her family medical history. Social History Denies tobacco abuse. Denies alcohol or illicit drug use. States she lives with family. Physical Exam Vital Signs Vital Signs Date Time Temp Pulse Resp B/P (MAP) Pulse Ox O2 Delivery O2 Flow Rate FiO2 05/19/17 07:05 63 05/19/17 07:03 98.1 66 18 155/69 (97) 98 05/19/17 04:10 62 05/19/17 03:14 98.1 63 18 162/74 (103) 98 05/19/17 00:05 97.9 66 18 167/74 (105) 98 05/18/17 22:23 05/18/17 21:01 71 18 165/63 (97) 98 Room Air 05/18/17 20:46 81 18 171/75 (107) 100 Room Air 05/18/17 20:28 98 Room Air 05/18/17 20:24 85 18 228/102 (144) 99 05/18/17 20:10 97.9 99 16 203/94 (130) 98 Room Air Physical Exam GENERAL: This is a well-nourished, well-developed patient, in no apparent distress. Patient speaks in clear complete sentences. Patient is pleasant. HEENT: Head is atraumatic and normocephalic. Neck is supple without lymphadenopathy and trachea is midline. No JVD or carotid bruits. CARDIOVASCULAR: Grade 1 systolic murmur left sternal border. Regular rate and rhythm without gallops or rubs. RESPIRATORY: Clear to auscultation. Breath sounds equal bilaterally. No wheezes , rales, or rhonchi. Chest wall is nontender. No use of accessory muscles. GASTROINTESTINAL: Abdomen is nontender, nondistended. Abdomen soft. No obvious pulsatile mass or bruit. No CVA tenderness. Strong femoral pulses bilaterally. Normal bowel sounds in all quadrants. MUSCULOSKELETAL: Patient is moving upper and lower extremities freely. No calf tenderness or edema, no Homans sign. Strong pulses in upper and lower extremities. NEUROLOGICAL: Patient is alert and oriented to person and place. Cranial nerves 2-12 are grossly intact. No focal deficits and speech is clear. SKIN: No rash and turgor is normal. Laboratory Laboratory Tests Test 05/18/17 20:39 05/18/17 23:48 05/19/17 03:00 White Blood Count 11.9 Red Blood Count 4.81 Hemoglobin 13.8 Hematocrit 42.0 Mean Corpuscular Volume 87.4 Mean Corpuscular Hemoglobin 28.6 Mean Corpuscular Hemoglobin Concent 32.7 Red Cell Distribution Width 16.1 Platelet Count 217 Mean Platelet Volume 9.0 Neutrophils (%) (Auto) 63.4 Lymphocytes (%) (Auto) 25.6 Monocytes (%) (Auto) 8.6 Eosinophils (%) (Auto) 1.5 Basophils (%) (Auto) 0.9 Neutrophils # (Auto) 7.5 Lymphocytes # (Auto) 3.0 Monocytes # (Auto) 1.0 Eosinophils # (Auto) 0.2 Basophils # (Auto) 0.1 CBC Comment DIFF FINAL Differential Comment Prothrombin Time 11.4 Prothromb Time International Ratio 1.1 Activated Partial Thromboplast Time 25.4 Blood Urea Nitrogen 15 Creatinine 0.95 Random Glucose 96 Calcium Level 9.1 Magnesium Level 2.1 Sodium Level 140 Potassium Level 3.8 Chloride Level 104 Carbon Dioxide Level 23.7 Anion Gap 12 Estimat Glomerular Filtration Rate 69 Total Creatine Kinase 79 65 61 Troponin I LESS THAN 0.02 0.02 0.02 Result Diagram: 05/18/17203805/18/172038 Imaging Last 48 hours Impressions Chest X-Ray 05/18/172029 Signed Impressions: Service Date/Time: May 20:49 - CONCLUSION: No acute disease. Flip Powell MD Course EKGs have been sinus rhythm without significant ST segment depressions or elevations. Caprini VTE Risk Assessment Caprini VTE Risk Assessment: Mod/High Risk (score >= 2) Caprini Risk Assessment Model Point Value = 1 Point Value = 2 Point Value = 3 Point Value = 5 Age 41-60 Minor surgery BMI > 25 kg/m2 Swollen legs Varicose veins or History of unexplained or recurrent spontaneous Oral contraceptives or hormone replacement Sepsis (< 1 month) Serious lung disease, including pneumonia (< 1 month) Abnormal pulmonary function Acute myocardial infarction Congestive heart failure (< 1 month) History of inflammatory bowel disease Medical patient at bed rest Age 61-74 Arthroscopic surgery Major open surgery (> 45 min) Laparoscopic surgery (> 45 min) Malignancy Confined to bed (> 72 hours) Immobilizing plaster cast Central venous access Age >= 75 History of VTE Family history of VTE Factor V Leiden Prothrombin [id number] Lupus anticoagulant Anticardiolipin antibodies Elevated serum homocysteine Heparin-induced thrombocytopenia Other congenital or acquired thrombophilia Stroke (< 1 month) Elective arthroplasty Hip, pelvis, or leg fracture Acute spinal cord injury (< 1 month) Prophylaxis Regimen Total Risk Factor Score Risk Level Prophylaxis Regimen 0-1 Low Early ambulation 2 Moderate Order ONE of the following: *Sequential Compression Device (SCD) *Heparin 5000 units SQ BID 3-4 Higher Order ONE of the following medications: *Heparin 5000 units SQ TID *Enoxaparin/Lovenox 40 mg SQ daily (WT < 150 kg, CrCl > 30 mL/min) *Enoxaparin/Lovenox 30 mg SQ daily (WT < 150 kg, CrCl > 10-29 mL/min) *Enoxaparin/Lovenox 30 mg SQ BID (WT < 150 kg, CrCl > 30 mL/min) AND/OR *Sequential Compression Device (SCD) 5 or more Highest Order ONE of the following medications: *Heparin 5000 units SQ TID (Preferred with Epidurals) *Enoxaparin/Lovenox 40 mg SQ daily (WT < 150 kg, CrCl > 30 mL/min) *Enoxaparin/Lovenox 30 mg SQ daily (WT < 150 kg, CrCl > 10-29 mL/min) *Enoxaparin/Lovenox 30 mg SQ BID (WT < 150 kg, CrCl > 30 mL/min) AND *Sequential Compression Device (SCD) Assessment and Plan Assessment and Plan * Chest pain: Patient has had serial cardiac enzymes and EKGs for ruling out purposes. She was seen by Dr. Dalton cardiology in the chest pain center and will undergo a Lexiscan. She'll be discharged home if that is negative with instructions to follow-up with PCP. Return to ED for interval issues. * Hypertension: Continue current medication. * Hyperlipidemia: Continue current medication. * History of CVA: Patient had CVA last month. We'll continue medications. She should follow back with her physician and neurologist. Patient is stable at this time. She is agreeable to this plan. Jed Iyer May 19, 2017 10:18
[2017-05-19] MEDS ORDERED: LOSARTAN 50 MG TAB PO SCH (10:30)
[2017-05-19] MEDS ORDERED: HYDROCHLOROTHIAZIDE 12.5 MG CAP PO SCH (10:30)
[2017-05-19] MEDS ORDERED: BACLOFEN 10 MG TAB PO SCH (10:30)
[2017-05-19] MEDS ORDERED: AMINOPHYLLINE INJ 500 MG/20 ML VIAL ONE (12:25)
[2017-05-19] MEDS ORDERED: REGADENOSON INJ 0.4 MG/5 ML SYR ONE (12:30)
--- NOTE | 2017-05-19 13:44 | RADRPT ---
EXAM DATE/TIME: 05/19/2017 11:23 [facility] COMPARISON: No previous studies available for comparison. INDICATIONS : Mid chest pain for one day. Angina. DOSE: 26.6 mCi Tc99m Myoview at stress. 8.6 mCi Tc99m Myoview at rest. 0.4 mg Lexiscan STRESS SYMPTOMS: MEDICATIONS: 1.) 100 mg Aminophylline IV EJECTION FRACTION: 40% MEDICAL HISTORY : Hypertension. Myocardial infarction. Atrial Fibrillation. Coronary Artery Disease. SURGICAL HISTORY : Total knee replacement, left. Total knee replacement, right. Hysterectomy. Appendectomy. ENCOUNTER: Initial ACUITY: 1 day PAIN SCALE: 4/10 LOCATION: Substernal chest TECHNIQUE: The patient underwent pharmacologic stress with infusion of prescribed dose. Continuous ECG tracing was monitored during stress. Gated SPECT imaging was performed after stress and conventional SPECT i maging was performed at rest. The examination was performed on a SPECT/CT scanner, both attenuation and non-corrected datasets were reviewed. FINDINGS: DISTRIBUTION: The maximum perfused segment at stress is in the anterior wall. PERFUSION STUDY: There is a moderate size marked severity fixed defect involving the mid and apical portions of the la teral wall. No reversible ischemic segments are identified. GATED STUDY: There is global hypokinesis without akinesia or dyskinesia. CONCLUSION: 1. Moderate size marked severity fixed defect involving the lateral wall with local hypokinesis. No r eversible ischemic segments are identified. RISK CATEGORY: Low (<1% Annual Mortality Rate) Valdo Campbell MD on May 19, 2017 at 13:40 Board Certified Radiologist. This report was verified electronically.
[2017-05-19 13:56] VITALS: BP 160/75; PULSE 82; TEMP 98.2; O2SAT 96
--- NOTE | 2017-05-19 14:03 | HHI.DCPOC ---
Discharge Care Plan Diagnosis: (1) Chest pain (2) HTN (hypertension) (3) Hyperlipidemia (4) History of CVA (cerebrovascular accident) Goals to Promote Your Health * To prevent worsening of your condition and complications * To maintain your health at the optimal level Directions to Meet Your Goals Take your medications as prescribed Follow your dietary instruction Follow activity as directed Keep your appointments as scheduled Take your immunizations and boosters as scheduled If your symptoms worsen call your PCP, if no PCP go to Urgent Care Center or Emergency Room Smoking is Dangerous to Your Health. Avoid second hand smoke Call the 24-hour hour crisis hotline for domestic abuse at Jed Iyer May 19, 2017 14:03
[2017-05-19] MEDS ORDERED: OXYBUTYNIN CHLORIDE 5 MG TAB PO SCH (21:00)
[2017-05-19] MEDS ORDERED: ATORVASTATIN 80 MG TAB PO SCH (21:00)
--- NOTE | 2017-05-19 22:04 | EKG ---
Date Performed: 05/19/2017 Time Performed: 03:05:17 PTAGE: 76 years EKG: Sinus rhythm POSSIBLE ANTERIOR MYOCARDIAL INFARCTION ABNORMAL ECG Since PREVIOUS TRACING , no significant change noted PREVIOUS TRACIN05/19/2017 00.13 DOCTOR: Jaida Dalton Interpretating Date/Time 05/19/2017 22:03:39
--- NOTE | 2017-05-19 22:10 | TR ---
Date Performed: 05/19/2017 Time Performed: 12:11:07 DOCTOR: Jaida Dalton DRUG LIST: CLINICAL HISTORY: REASON FOR TEST: CHEST PAIN REASON FOR ENDING: OBSERVATION: CONCLUSION: Lexiscan stress test was performed under standard four minute protocol. Radionuclid e was injected one minute prior to ending the test. No electrocardiographic abormalities were present to suggest ischemia. Nuclear imaging and interpretation are pending. COMMENTS:
--- NOTE | 2017-05-19 22:18 | EKG ---
Date Performed: 05/18/2017 Time Performed: 20:27:18 PTAGE: 76 years EKG: Sinus rhythm WITH OCCASIONAL SUPRAVENTRICULAR PREMATURE COMPLEXES NONSPECIFIC T-WAVE ABNORMALITY BORDERLINE ECG S colt PREVIOUS TRACING , no significant change noted PREVIOUS TRACIN05/02/2017 12.23 DOCTOR: Jaida Dalton Interpretating Date/Time 05/19/2017 22:16:48
--- NOTE | 2017-05-19 22:21 | EKG ---
Date Performed: 05/19/2017 Time Performed: 00:13:48 PTAGE: 76 years EKG: Sinus rhythm POSSIBLE ANTERIOR MYOCARDIAL INFARCTION ABNORMAL ECG Since PREVIOUS TRACING , no significant change noted PREVIOUS TRACIN05/18/2017 20.27 DOCTOR: Jaida Dalton Interpretating Date/Time 05/19/2017 22:19:40
== END 2017-05-19 18:34 | disposition home or self-care (01) ==
LOC: NEPE 20:09 → NEDA 21:37 → NEPHCDU 22:09
PROVIDERS: ADMIT Internal Medicine Cardiovascular Disease; ATTEND Internal Medicine Cardiovascular Disease
DX: R07.9 Chest pain, unspecified (principal); I69.320 Aphasia following cerebral infarction; I10 Essential (primary) hypertension; E78.5 Hyperlipidemia, unspecified; D64.9 Anemia, unspecified; M19.90 Unspecified osteoarthritis, unspecified site; J45.909 Unspecified asthma, uncomplicated; I48.91 Unspecified atrial fibrillation; K21.9 Gastro-esophageal reflux disease without esophagitis; R51 Headache; I25.2 Old myocardial infarction; F17.210 Nicotine dependence, cigarettes, uncomplicated; Z79.82 Long term (current) use of aspirin
CPT/HCPCS: 71045; 78452; 80048; 82550; 83735; 84484; 85025; 85610; 85730; 93005; 93017; 99285; A9502; G0378; J0280; J2785

== ENCOUNTER 2017-05-20 15:14 | Inpatient (IN) | payer MEDICARE ==
[~2017-05-20] VITALS: Ht 162.6 cm; Wt 68.4 kg
[2017-05-20 15:29] VITALS: BP 120/62; PULSE 62; RESP 16; TEMP 98.2; O2SAT 94
--- NOTE | 2017-05-20 15:38 | PD ---
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 She presents via EMS for evaluation. Prior to arrival the patient was speaking with family member when she felt sudden onset weakness in her left arm and leg. This lasted for a few minutes and then resolved. She currently feels normal. The weakness resolved. She denies any headache, blurred vision, weakness, chest pain, shortness of breath, palpitations, dizziness, nausea, vomiting. She is currently prescribed baby aspirin on a daily basis which she has been using as prescribed. More recently the patient was admitted for chest pain on May 18. She underwent a myocardial perfusion scan which revealed no significant abnormalities. She has no other complaints at this time. PFSH Past Medical History Anemia: Yes Arthritis: Yes Asthma: Yes Atrial Fibrillation: Yes Autoimmune Disease: No Blood Disorders: No Anxiety: No Depression: No Heart Rhythm Problems: Yes (Afib) Cancer: No Cardiac Catheterization: No Cardiovascular Problems: Yes (HTN) High Cholesterol: Yes Congestive Heart Failure: No Cerebrovascular Accident: Yes Diabetes: No Endocrine: No Gastrointestinal Disorders: Yes GERD: Yes Genitourinary: Yes (urgency) Headaches: Yes Hepatitis: Yes Hiatal Hernia: Yes Hypertension: Yes Immune Disorder: No Implanted Vascular Access Dvce: Yes Kidney Stones: No Musculoskeletal: Yes Neurologic: Yes (CVA 2001) Psychiatric: No Respiratory: Yes (pneumonia, asthma) Immunizations Current: No Migraines: No Myocardial Infarction: Yes Renal Failure: No Seizures: No Thyroid Disease: Yes Ulcer: No Menopausal: Yes : 4 Para: 4 Past Surgical History Abdominal Surgery: Yes AICD: No Appendectomy: Yes Arteriovenous Shunt: No Coronary Artery Bypass Graft: No Endocrine Surgery: No Genitourinary Surgery: Yes Gynecologic Surgery: No Hysterectomy: Yes Joint Replacement: Yes (BILATERAL KNEES) Pacemaker: No Other Surgery: Yes (thyroid) Social History Alcohol Use: No Tobacco Use: Yes (4 cig day) Substance Use: No Allergies-Medications (Allergen,Severity, Reaction): Coded Allergies: aspirin (Unverified Adverse Reaction, Severe, STOMACH UPSET, 05/02/17) Reported Meds & Prescriptions Reported Meds & Active Scripts Active Tgt Aspirin (Aspirin) 81 Mg Chw 81 Mg CHEW DAILY 30 Days Reported Atorvastatin (Atorvastatin Calcium) 80 Mg Tab 80 Mg PO HS Ditropan (Oxybutynin Chloride) 5 Mg Tab 5 Mg PO HS Pantoprazole (Pantoprazole Sodium) 20 Mg Tab 20 Mg PO DAILY Losartan-Hydrochlorothiazide 50-12.5 Mg Tab 1 Tab PO DAILY Review of Systems Except as stated in HPI: all other systems reviewed are Neg Physical Exam Narrative GENERAL: Well-developed well-nourished female in no acute distress SKIN: Warm and dry. HEAD: Atraumatic. Normocephalic. EYES: Pupils equal and round. No scleral icterus. No injection or drainage. ENT: No nasal bleeding or discharge. Mucous membranes pink and moist. NECK: Trachea midline. No JVD. CARDIOVASCULAR: Regular rate and rhythm. No murmur appreciated. RESPIRATORY: No accessory muscle use. Clear to auscultation. Breath sounds equal bilaterally. GASTROINTESTINAL: Abdomen soft, non-tender, nondistended. Hepatic and splenic margins not palpable. MUSCULOSKELETAL: No obvious deformities. No clubbing. No cyanosis. No edema. NEUROLOGICAL: Awake and alert. No obvious cranial nerve deficits. Motor grossly within normal limits. Expressive aphasia noted. Some difficulty with finger-nose examination bilaterally. No upper or lower extremity drift PSYCHIATRIC: Appropriate mood and affect; insight and judgment normal. Data Data Last Documented VS Vital Signs Date Time Temp Pulse Resp B/P (MAP) Pulse Ox O2 Delivery O2 Flow Rate FiO2 05/20/17 16:05 96 Room Air 05/20/17 15:29 98.2 62 16 120/62 (81) Orders Orders Electrocardiogram (05/20/17 15:32) Prothrombin Time / Inr (Pt) (05/20/17 15:32) Act Partial Throm Time (Ptt) (05/20/17 15:32) Complete Blood Count With Diff (05/20/17 15:32) Basic Metabolic Panel (Bmp) (05/20/17 15:32) Urinalysis - C+S If Indicated (05/20/17 15:32) Ct Brain W/O Iv Contrast(Rout) (05/20/17 15:32) Ecg Monitoring (05/20/17 15:32) Iv Access Insert/Monitor (05/20/17 15:32) Oximetry (05/20/17 15:32) Blood Glucose (05/20/17 15:32) Heparin-D5w 25,000 U/250 Ml (Heparin-D5w (05/20/17 17:45) Cbc No Diff, Includes Plts (05/20/17 17:41) Cbc No Diff, Includes Plts (05/23/17 06:00) Act Partial Throm Time (Ptt) (05/20/17 17:41) Admit Order (Ed Use Only) (05/20/17 17:41) Labs Laboratory Tests Test 05/20/17 15:46 White Blood Count 11.8 TH/MM3 Red Blood Count 4.79 MIL/MM3 Hemoglobin 13.8 GM/DL Hematocrit 42.2 % Mean Corpuscular Volume 88.1 FL Mean Corpuscular Hemoglobin 28.7 PG Mean Corpuscular Hemoglobin Concent 32.6 % Red Cell Distribution Width 16.0 % Platelet Count 206 TH/MM3 Mean Platelet Volume 9.0 FL Neutrophils (%) (Auto) 71.6 % Lymphocytes (%) (Auto) 19.0 % Monocytes (%) (Auto) 8.0 % Eosinophils (%) (Auto) 0.8 % Basophils (%) (Auto) 0.6 % Neutrophils # (Auto) 8.4 TH/MM3 Lymphocytes # (Auto) 2.2 TH/MM3 Monocytes # (Auto) 0.9 TH/MM3 Eosinophils # (Auto) 0.1 TH/MM3 Basophils # (Auto) 0.1 TH/MM3 CBC Comment DIFF FINAL Differential Comment Prothrombin Time 12.2 SEC Prothromb Time International Ratio 1.2 RATIO Activated Partial Thromboplast Time 24.6 SEC MDM Medical Decision Making Medical Screen Exam Complete: Yes Emergency Medical Condition: Yes Medical Record Reviewed: Yes Differential Diagnosis TIA, CVA, hypoglycemia, electrolyte abnormality, hypertensive urgency Narrative Course The patient was placed on ECG monitoring pulse oximetry. Twelve-lead EKG will be obtained. CT of the brain will be obtained. CT of the brain reveals no acute abnormalities. I discussed the case with on- call neurologist Dr. Lomas who recommends heparin drip, admission, MRI of the brain. Discussed with Dr. Cornejo was agreeable with admission. Diagnosis Primary Impression: TIA (transient ischemic attack) Admitting Information Admitting Physician Requests: Observation Vladislav Baxter May 20, 2017 15:38
[2017-05-20 16:05] VITALS: O2SAT 96
[2017-05-20 16:16] LABS: AUTOMATED NEUTROPHIL # 8.4 TH/MM3 (1.8-7.7); BASOPHIL # 0.1 TH/MM3 (0-0.2); BASOPHIL % 0.6 % (0.0-2.0); EOSINOPHIL # 0.1 TH/MM3 (0-0.4); EOSINOPHIL % 0.8 % (0.0-4.0); HEMATOCRIT 42.2 % (35.0-46.0); HEMOGLOBIN 13.8 GM/DL (11.6-15.3); LYMPHOCYTE # 2.2 TH/MM3 (1.0-4.8); MEAN CELL VOLUME 88.1 FL (80.0-100.0); MEAN CORPUSCULAR HEMOGLOBIN 28.7 PG (27.0-34.0); MEAN CORPUSCULAR HGB CONC 32.6 % (32.0-36.0); MONOCYTE # 0.9 TH/MM3 (0-0.9); NEUT % 71.6 % (16.0-70.0); PLATELET COUNT 206 TH/MM3 (150-450); RED BLOOD COUNT 4.79 MIL/MM3 (4.00-5.30); WHITE BLOOD COUNT 11.8 TH/MM3 (4.0-11.0)
[2017-05-20 16:27] LABS: INTERNATIONAL NORMALIZED RATIO 1.2 RATIO; PROTHROMBIN TIME - PATIENT 12.2 SEC (9.8-11.6)
--- NOTE | 2017-05-20 17:27 | RADRPT ---
EXAM DATE/TIME: 05/20/2017 16:48 [facility] COMPARISON: MRI BRAIN W/O CONTRAST, May 02, 2017, 14:[address] BRAIN W/O CONTRAST, May 03, 2017, 14:1 8. INDICATIONS : Generalized weakness, right-sided gaze. RADIATION DOSE: 56.35 CTDIvol (mGy) MEDICAL HISTORY : Stroke. Hypertension. Cardiovascular disease SURGICAL HISTORY : Inguinal hernia repair. ENCOUNTER: Initial ACUITY: 1 day PAIN SCALE: 0/10 LOCATION: cranial TECHNIQUE: Multiple contiguous axial images were obtained of the head. Using automated exposure control and adj ustment of the mA and/or kV according to patient size, radiation dose was kept as low as reasonably a chievable to obtain optimal diagnostic quality images. DICOM format image data is available electro nically for review and comparison. FINDINGS: Noncontrast axial head CT demonstrates the ventricles to be normal in size and configuration with a n ormal sulcal pattern. No acute intracranial hemorrhage, acute cortical infarction, mass or midline sh ift is seen. Old left frontal infarct is evident. Posterior fossa structures are unremarkable. Bone windows are unremarkable. CONCLUSION: 1. No evidence of acute intracranial pathology. No masses are identified. Valdo Campbell MD on May 20, 2017 at 17:24 Board Certified Radiologist. This report was verified electronically.
[2017-05-20] MEDS ORDERED: NALOXONE HCL 0.4 MG/ML AMP IV PUSH PRN (18:00)
[2017-05-20] MEDS ORDERED: DEXTROSE 50% IN WATER 50 ML VIAL(D50) IV PUSH PRN (18:00)
[2017-05-20] MEDS ORDERED: SODIUM CHLORIDE 0.9% FLUSH 10 ML FLUSH IV FLUSH PRN ×2 (18:00)
[2017-05-20] MEDS ORDERED: ACETAMINOPHEN 325 MG TAB PO PRN (18:00)
[2017-05-20] MEDS ORDERED: LACTULOSE SYRUP 20 GM/30 ML CUP PO PRN (18:00)
[2017-05-20] MEDS ORDERED: MAGNESIUM HYDROXIDE SUSP 30 ML CUP PO PRN (18:00)
[2017-05-20] MEDS ORDERED: ENALAPRILAT 1.25 MG/ML VIAL IV PUSH PRN (18:00)
[2017-05-20] MEDS ORDERED: ENOXAPARIN SODIUM 40 MG/0.4 ML SYRINGE SQ SCH (18:00)
[2017-05-20] MEDS ORDERED: GLUCAGON 1 MG/ML VIAL OTHER PRN (18:00)
[2017-05-20] MEDS ORDERED: SENNOSIDES 8.6 MG TAB PO PRN (18:00)
[2017-05-20] MEDS ORDERED: BISACODYL 10 MG SUPP RECTAL PRN (18:00)
--- NOTE | 2017-05-20 18:18 | PD ---
Physical Exam Narrative GENERAL: Well-nourished, well-developed patient. SKIN: Warm and dry. HEAD: Normocephalic and atraumatic. EYES: No injection or drainage. ENT: No nasal drainage noted. NECK: Supple, trachea midline. CARDIOVASCULAR: Regular rate and rhythm RESPIRATORY: no increased effort. No accessory muscle use. GASTROINTESTINAL: Abdomen nondistended. NEUROLOGICAL: Awake and alert. Motor and sensory grossly within normal limits. Normal speech. Data Data Last Documented VS Vital Signs Date Time Temp Pulse Resp B/P (MAP) Pulse Ox O2 Delivery O2 Flow Rate FiO2 05/20/17 16:05 96 Room Air 05/20/17 15:29 98.2 62 16 120/62 (81) Orders Orders Electrocardiogram (05/20/17 15:32) Prothrombin Time / Inr (Pt) (05/20/17 15:32) Act Partial Throm Time (Ptt) (05/20/17 15:32) Complete Blood Count With Diff (05/20/17 15:32) Basic Metabolic Panel (Bmp) (05/20/17 15:32) Urinalysis - C+S If Indicated (05/20/17 15:32) Ct Brain W/O Iv Contrast(Rout) (05/20/17 15:32) Ecg Monitoring (05/20/17 15:32) Iv Access Insert/Monitor (05/20/17 15:32) Oximetry (05/20/17 15:32) Blood Glucose (05/20/17 15:32) Heparin-D5w 25,000 U/250 Ml (Heparin-D5w (05/20/17 17:45) Cbc No Diff, Includes Plts (05/20/17 17:41) Cbc No Diff, Includes Plts (05/23/17 06:00) Act Partial Throm Time (Ptt) (05/20/17 17:41) Admit Order (Ed Use Only) (05/20/17 17:41) Labs Laboratory Tests Test 05/20/17 15:46 05/20/17 17:30 White Blood Count 11.8 TH/MM3 Red Blood Count 4.79 MIL/MM3 Hemoglobin 13.8 GM/DL Hematocrit 42.2 % Mean Corpuscular Volume 88.1 FL Mean Corpuscular Hemoglobin 28.7 PG Mean Corpuscular Hemoglobin Concent 32.6 % Red Cell Distribution Width 16.0 % Platelet Count 206 TH/MM3 Mean Platelet Volume 9.0 FL Neutrophils (%) (Auto) 71.6 % Lymphocytes (%) (Auto) 19.0 % Monocytes (%) (Auto) 8.0 % Eosinophils (%) (Auto) 0.8 % Basophils (%) (Auto) 0.6 % Neutrophils # (Auto) 8.4 TH/MM3 Lymphocytes # (Auto) 2.2 TH/MM3 Monocytes # (Auto) 0.9 TH/MM3 Eosinophils # (Auto) 0.1 TH/MM3 Basophils # (Auto) 0.1 TH/MM3 CBC Comment DIFF FINAL Differential Comment Prothrombin Time 12.2 SEC Prothromb Time International Ratio 1.2 RATIO Activated Partial Thromboplast Time 24.6 SEC MDM Supervised Visit with NIGEL: Yes Interpretation(s) CBC & BMP Diagram 05/20/17 15:46 Last [address] 05/20/17 1532 Signed Impressions: Service Date/Time: Saturday, May 20, 2017 16:48 - CONCLUSION: 1. No evidence of acute intracranial pathology. No masses are identified. Valdo Campbell MD Narrative Course I, Dr. lopez, have reviewed the advance practice practitioner's documentation and am in agreement, met with the patient face to face, made the diagnosis, and the medical decision making was done by me. *My assessment and Findings: 76-year-old female presents with prior weakness on one side that resolved. She currently is only on a baby aspirin. Concern is for TIA. She'll be placed on heparin per neurology request and admitted Diagnosis Primary Impression: TIA (transient ischemic attack) Qualified Codes: G45.9 - Transient cerebral ischemic attack, unspecified Tahmina Lopez MD May 20, 2017 18:18
[2017-05-20 18:34] LABS: BICARBONATE 26.1 MEQ/L (21.0-32.0); CALCIUM 9.2 MG/DL (8.5-10.1); CREATININE 1.18 MG/DL (0.50-1.00)
[2017-05-20] MEDS: SODIUM CHLOR 0.9% 1000 ML INJ 1,000 ML IV SCH (18:43)
[2017-05-20 18:53] LABS: AMORPHOUS SEDIMENT, URINE RARE; BACTERIA, URINE MOD /hpf; BLOOD, URINE NEG (NEG); GLUCOSE,URINE TRACE mg/dL (NEG); HYALINE CAST, URINE 78 /lpf (RARE); KETONE, URINE NEG (NEG); MUCUS URINE MANY /lpf (OCC); NITRITE,URINE NEG (NEG); PH, URINE 5.5 (5.0-8.5); SQUAMOUS EPITHELIAL CELL URINE 15 /hpf (0-5); URINE COLOR YELLOW (YELLW/STRAW); URINE LEUKOCYTE ESTERASE MOD (NEG)
[2017-05-20 18:56] LABS: BILIRUBIN, URINE NEG (NEG)
[2017-05-20 19:00] LABS: HEMATOCRIT 27.5 % (35.0-46.0); HEMOGLOBIN 9.5 GM/DL (11.6-15.3); MEAN CELL VOLUME 88.5 FL (80.0-100.0); MEAN CORPUSCULAR HEMOGLOBIN 30.4 PG (27.0-34.0); MEAN CORPUSCULAR HGB CONC 34.4 % (32.0-36.0); MEAN PLATELET VOLUME 8.9 FL (7.0-11.0); PLATELET COUNT 146 TH/MM3 (150-450); RED BLOOD COUNT 3.11 MIL/MM3 (4.00-5.30); RED CELL DISTRIBUTION WIDTH 15.7 % (11.6-17.2); WHITE BLOOD COUNT 8.4 TH/MM3 (4.0-11.0)
[2017-05-20 19:15] VITALS: BP 135/64; PULSE 59; RESP 21; O2SAT 96
--- NOTE | 2017-05-20 19:38 | HHI.HP ---
[facility] Service 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 fib, hypertension, arthritis. She presents via EMS for evaluation. Prior to arrival the patient was speaking with family member when she felt sudden onset weakness in her left arm and leg and also was noted with slurred speech. This lasted for a few minutes and then resolved. She currently feels normal. Speech also improved and says his back at baseline. The weakness resolved. She denies any headache, blurred vision, weakness, chest pain, shortness of breath, palpitations, dizziness, nausea, vomiting. She is currently prescribed baby aspirin on a daily basis which she has been using as prescribed. More recently the patient was admitted for chest pain on May 18. She underwent a myocardial perfusion scan which revealed no significant abnormalities. She has no other complaints at this time. Vomiting also at bedside providing some history as well. 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 fib, with PM, hypertension, arthritis, urinary urgency Past Surgical History Bilateral knee surgery Thyroid surgery Appendectomy Hysterectomy Reported Medications Reported Meds & Active Scripts Active Tgt Aspirin (Aspirin) 81 Mg Chw 81 Mg CHEW DAILY 30 Days Reported Atorvastatin (Atorvastatin Calcium) 80 Mg Tab 80 Mg PO HS Ditropan (Oxybutynin Chloride) 5 Mg Tab 5 Mg PO HS Pantoprazole (Pantoprazole Sodium) 20 Mg Tab 20 Mg PO DAILY Losartan-Hydrochlorothiazide 50-12.5 Mg Tab 1 Tab PO DAILY Allergies: Coded Allergies: aspirin (Unverified Adverse Reaction, Severe, STOMACH UPSET, 05/02/17) Family History Mother had hypertension Father diabetes and hypertension Social History Used to smoke 1 pack every 3 days, cut down to 4 cig day. No alcohol use or illicit drug use Physical Exam Vital Signs Vital Signs Date Time Temp Pulse Resp B/P (MAP) Pulse Ox O2 Delivery O2 Flow Rate FiO2 05/20/17 16:05 96 Room Air 05/20/17 15:35 Room Air 05/20/17 15:29 98.2 62 16 120/62 (81) 94 Physical Exam GENERAL: This is a well-nourished, well-developed patient, in no apparent distress. SKIN: No rashes, ecchymoses or lesions. Cool and dry. HEAD: Atraumatic. Normocephalic. No temporal or scalp tenderness. EYES: Pupils equal round and reactive. Extraocular motions intact. No scleral icterus. No injection or drainage. ENT: Nose without bleeding, purulent drainage or septal hematoma. Throat without erythema, tonsillar hypertrophy or exudate. Uvula midline. Airway patent. NECK: Trachea midline. No JVD or lymphadenopathy. Supple, nontender, no meningeal signs. CARDIOVASCULAR: Regular rate and rhythm without murmurs, gallops, or rubs. RESPIRATORY: Clear to auscultation. Breath sounds equal bilaterally. No wheezes , rales, or rhonchi. GASTROINTESTINAL: Abdomen soft, non-tender, nondistended. No hepato-splenomegaly , or palpable masses. No guarding. MUSCULOSKELETAL: Extremities without clubbing, cyanosis, or edema. No joint tenderness, effusion, or edema noted. No calf tenderness. Negative Homans sign bilaterally. NEUROLOGICAL: Awake and alert. Cranial nerves II through XII intact. Motor and sensory grossly within normal limits. Five out of 5 muscle strength in all muscle groups. Mild expressive aphasia. Laboratory Laboratory Tests Test 05/20/17 15:46 05/20/17 17:30 05/20/17 17:48 05/20/17 17:52 White Blood Count 11.8 8.4 Red Blood Count 4.79 3.11 Hemoglobin 13.8 9.5 Hematocrit 42.2 27.5 Mean Corpuscular Volume 88.1 88.5 Mean Corpuscular Hemoglobin 28.7 30.4 Mean Corpuscular Hemoglobin Concent 32.6 34.4 Red Cell Distribution Width 16.0 15.7 Platelet Count 206 146 Mean Platelet Volume 9.0 8.9 Neutrophils (%) (Auto) 71.6 Lymphocytes (%) (Auto) 19.0 Monocytes (%) (Auto) 8.0 Eosinophils (%) (Auto) 0.8 Basophils (%) (Auto) 0.6 Neutrophils # (Auto) 8.4 Lymphocytes # (Auto) 2.2 Monocytes # (Auto) 0.9 Eosinophils # (Auto) 0.1 Basophils # (Auto) 0.1 CBC Comment DIFF FINAL Differential Comment Prothrombin Time 12.2 Prothromb Time International Ratio 1.2 Activated Partial Thromboplast Time 24.6 24.3 Blood Urea Nitrogen 13 Creatinine 1.18 Random Glucose 112 Calcium Level 9.2 Sodium Level 137 Potassium Level 3.8 Chloride Level 104 Carbon Dioxide Level 26.1 Anion Gap 7 Estimat Glomerular Filtration Rate 54 Urine Color YELLOW Urine Turbidity HAZY Urine pH 5.5 Urine Specific [place] 1.026 Urine Protein 100 Urine Glucose (UA) TRACE Urine Ketones NEG Urine Occult Blood NEG Urine Nitrite NEG Urine Bilirubin NEG Urine Urobilinogen 2.0 Urine Leukocyte Esterase MOD Urine RBC 2 Urine WBC 10 Urine Squamous Epithelial Cells 15 Urine Amorphous Sediment RARE Urine Bacteria MOD Urine Hyaline Casts 78 Urine Mucus MANY Microscopic Urinalysis Comment CATH-CULTURE IND Date/Time Source Procedure Growth Status 05/20/17 17:48 Urine Catheterized Urine Urine Culture Pending Received Result Diagram: 05/20/17 1730 05/20/17 1730 Caprini VTE Risk Assessment Caprini VTE Risk Assessment: Mod/High Risk (score >= 2) Caprini Risk Assessment Model Point Value = 1 Point Value = 2 Point Value = 3 Point Value = 5 Age 41-60 Minor surgery BMI > 25 kg/m2 Swollen legs Varicose veins or History of unexplained or recurrent spontaneous Oral contraceptives or hormone replacement Sepsis (< 1 month) Serious lung disease, including pneumonia (< 1 month) Abnormal pulmonary function Acute myocardial infarction Congestive heart failure (< 1 month) History of inflammatory bowel disease Medical patient at bed rest Age 61-74 Arthroscopic surgery Major open surgery (> 45 min) Laparoscopic surgery (> 45 min) Malignancy Confined to bed (> 72 hours) Immobilizing plaster cast Central venous access Age >= 75 History of VTE Family history of VTE Factor V Leiden Prothrombin [id number] Lupus anticoagulant Anticardiolipin antibodies Elevated serum homocysteine Heparin-induced thrombocytopenia Other congenital or acquired thrombophilia Stroke (< 1 month) Elective arthroplasty Hip, pelvis, or leg fracture Acute spinal cord injury (< 1 month) Prophylaxis Regimen Total Risk Factor Score Risk Level Prophylaxis Regimen 0-1 Low Early ambulation 2 Moderate Order ONE of the following: *Sequential Compression Device (SCD) *Heparin 5000 units SQ BID 3-4 Higher Order ONE of the following medications: *Heparin 5000 units SQ TID *Enoxaparin/Lovenox 40 mg SQ daily (WT < 150 kg, CrCl > 30 mL/min) *Enoxaparin/Lovenox 30 mg SQ daily (WT < 150 kg, CrCl > 10-29 mL/min) *Enoxaparin/Lovenox 30 mg SQ BID (WT < 150 kg, CrCl > 30 mL/min) AND/OR *Sequential Compression Device (SCD) 5 or more Highest Order ONE of the following medications: *Heparin 5000 units SQ TID (Preferred with Epidurals) *Enoxaparin/Lovenox 40 mg SQ daily (WT < 150 kg, CrCl > 30 mL/min) *Enoxaparin/Lovenox 30 mg SQ daily (WT < 150 kg, CrCl > 10-29 mL/min) *Enoxaparin/Lovenox 30 mg SQ BID (WT < 150 kg, CrCl > 30 mL/min) AND *Sequential Compression Device (SCD) Assessment and Plan Assessment and Plan TIA (transient ischemic attack) Recent Acute left frontal CVA/ Aphasia received TPA on last admission CT of the brain reveals no acute abnormalities. I discussed the case with on- call neurologist Dr. Lomas who recommends heparin drip, admission, MRI of the brain. Neurology consulted Dr Lomas recommends heparin drip, MRI of brain continue aspirin y 81 mg daily Lipitor PT/OT/speech Hold Obi meds at this time allow permissive HTN rechck echo, holter monitor , carotic US Tobacco abuse counselled current 4 cig/day Atrial fibrillation, chronic-now in SR- rate controlled Hypertension Coronary artery disease Recent 2-D echo- unremarkable Hold OBI meds allow permissive htn at this time History of urinary incontinence - restart her Oxybutynin DVT ppx on heparin drip . scd/teds Discussed Condition With patient, nurse, family at bedside, ER physician Hortencia Cornejo MD May 20, 2017 19:38
[2017-05-20] MEDS: HEPARIN-D5W 25,000 U/250 ML 250 ML IV SCH (19:53)
[2017-05-20 20:00] VITALS: O2SAT 95
[2017-05-20 20:55] VITALS: BP 110/53; PULSE 78; RESP 17; TEMP 96.3; O2SAT 98
[2017-05-20] MEDS: INSULIN ASPART SUPPLEMENTAL SCALE SQ SCH (21:00)
[2017-05-20] MEDS ORDERED: SODIUM CHLORIDE 0.9% FLUSH 10 ML FLUSH IV FLUSH SCH (21:00)
[2017-05-20] MEDS: SODIUM CHLORIDE 0.9% FLUSH 10 ML FLUSH IV FLUSH SCH (21:00)
[2017-05-20] MEDS: OXYBUTYNIN CHLORIDE 5 MG TAB PO SCH (21:00)
[2017-05-20] MEDS: DOCUSATE SODIUM 50 MG/SENNA 8.6 MG TAB PO SCH (21:05)
[2017-05-20] MEDS: ATORVASTATIN 80 MG TAB PO SCH (21:05)
[2017-05-21] VITALS (8 sets, daily range): BP systolic 117–155; BP diastolic 60–74; PULSE 54–79; RESP 17–18; TEMP 97–98.3; O2SAT 95–99
[2017-05-21] MEDS: SODIUM CHLOR 0.9% 1000 ML INJ 1,000 ML IV SCH ×3 (00:59→14:50)
[2017-05-21 02:19] LABS: AUTOMATED NEUTROPHIL # 5.1 TH/MM3 (1.8-7.7); BASOPHIL # 0.1 TH/MM3 (0-0.2); BASOPHIL % 0.8 % (0.0-2.0); EOSINOPHIL # 0.1 TH/MM3 (0-0.4); EOSINOPHIL % 1.2 % (0.0-4.0); HEMATOCRIT 37.6 % (35.0-46.0); HEMOGLOBIN 12.4 GM/DL (11.6-15.3); LYMPHOCYTE # 2.7 TH/MM3 (1.0-4.8); MEAN CELL VOLUME 87.2 FL (80.0-100.0); MEAN CORPUSCULAR HEMOGLOBIN 28.7 PG (27.0-34.0); MEAN CORPUSCULAR HGB CONC 32.9 % (32.0-36.0); MEAN PLATELET VOLUME 8.6 FL (7.0-11.0); MONOCYTE # 0.8 TH/MM3 (0-0.9); PLATELET COUNT 193 TH/MM3 (150-450); RED BLOOD COUNT 4.32 MIL/MM3 (4.00-5.30); RED CELL DISTRIBUTION WIDTH 15.7 % (11.6-17.2); WHITE BLOOD COUNT 8.9 TH/MM3 (4.0-11.0)
[2017-05-21 02:40] LABS: CALCIUM 8.3 MG/DL (8.5-10.1); CHOLESTEROL/ HDL RATIO 3.5 RATIO; CREATININE 0.74 MG/DL (0.50-1.00); HDL CHOLESTEROL 49.3 MG/DL (40.0-60.0)
[2017-05-21] MEDS: INSULIN ASPART SUPPLEMENTAL SCALE SQ SCH ×3 (08:00→20:57)
[2017-05-21] MEDS: SODIUM CHLORIDE 0.9% FLUSH 10 ML FLUSH IV FLUSH SCH ×2 (09:00→20:51)
[2017-05-21] MEDS ORDERED: ASPIRIN 300 MG SUPP RECTAL SCH (09:00)
[2017-05-21 10:41] LABS: HEMOGLOBIN A1C 6.2 % (4.3-6.0)
[2017-05-21] MEDS: DOCUSATE SODIUM 50 MG/SENNA 8.6 MG TAB PO SCH ×2 (11:10→20:51)
[2017-05-21] MEDS: ASPIRIN 81 MG CHEW TAB CHEW SCH (11:10)
[2017-05-21] MEDS ORDERED: DEXTROSE 50% IN WATER 50 ML VIAL(D50) IV PUSH PRN (12:15)
[2017-05-21] MEDS ORDERED: SODIUM CHLORIDE 0.9% FLUSH 10 ML FLUSH IV FLUSH PRN (12:15)
[2017-05-21] MEDS ORDERED: GLUCAGON 1 MG/ML VIAL OTHER PRN (12:15)
--- NOTE | 2017-05-21 12:40 | EKG ---
Date Performed: 05/20/2017 Time Performed: 15:51:13 PTAGE: 76 years EKG: Sinus rhythm WITH OCCASIONAL VENTRICULAR PREMATURE COMPLEXES NONSPECIFIC T-WAVE ABNORMALITY ABNORMAL ECG PREVIOUS TRACING : 05/19/2017 03.05 Compared to prior tracing no significant change, except the PVCs are new. The poor R wave progression across the precordium is unchanged. DOCTOR: Evan Zamora Interpretating Date/Time 05/21/2017 12:38:55
--- NOTE | 2017-05-21 13:07 | MB ---
cc: DOUG COFFEY MD PHD DATE OF CONSULTATION: 05/21/2017 REASON FOR CONSULTATION: Stroke HISTORY OF PRESENT ILLNESS: Ms. Castillo is a 76-year-old woman a history of stroke in April of 2017 with mild aphasia, history of atrial fibrillation, hypertension, and arthritis. She presented to the emergency room. She felt sudden weakness of her left arm and leg and slurred speech lasting a few minutes and then it resolved back to normal. She has a history of previous stroke recently in April of last year with aphasia at which time she had evaluation with the brain MRI showing a left frontal acute stroke. Neck CTA was normal. A head CT at the time was normal. Head CT was negative. At that time, she was not on anticoagulation. She did receive tPA at the time. Her initial NIH Stroke Scale was 12. She had severe aphasia and right facial droop. She has since improved from her initial symptoms. This patient was on a baby aspirin a day when this happened. She has been placed on heparin drip IV since admission and is doing well with no recurrent episodes. PAST MEDICAL HISTORY: 1. Hypertension. 2. Atrial fibrillation. 3. Thyroid surgery. 4. Appendectomy. 5. Hysterectomy. 6. Bilateral knee surgery. MEDICATIONS ON ADMISSION: 1. Atorvastatin 80 milligrams daily. 2. Ditropan 5 milligrams daily. 3. Pantoprazole 20 milligrams daily. 4. Losartan. 5. Aspirin 81 milligrams daily. NEUROLOGICAL EXAMINATION: VITAL SIGNS: Blood pressure 123/69, pulse 67, respiratory rate 18, temperature 98 degrees. HIGHER CORTICAL FUNCTIONS: She is alert, oriented. Speech is fluent at this time. CRANIAL NERVES: Cranial nerves are normal. MOTOR EXAM: 5/5 strength of all groups in both upper and lower extremities. There is no drift. REFLEXES: Reflexes symmetric. IMAGING STUDIES: CT of brain shows no acute changes present. There is no hemorrhage. No mass effect. No edema. LABORATORY DATA: White count is 8900, hemoglobin 12.4, hematocrit 37.6%, platelet count 193,000. INR 1.2, PT 12.2, APTT initially 24.6 but now on IV heparin is 49.6. Sodium is 141, potassium 3.4, chloride 109, CO2 23, the BUN is 13, creatinine 0.74, GFR 92. LDL 112, cholesterol 173, HDL 49.3. EKGS: Her EKG shows sinus rhythm with PVCs. IMPRESSION 1. Recent stroke with aphasia, right-sided weakness improved following tPA. 2. Atrial fibrillation. 3. Now with recurrent TIA. RECOMMENDATIONS: 1. Continue IV heparin. 2. Recommend further evaluation with MRI / MRA brain. 3. We do not need to evaluate the carotids because she had a recent CT of the carotids in April which was negative for any kind of stenosis. In addition, she had an echocardiogram on May 04 which revealed an ejection fraction of 55% to 60%, mild consisting concentric left ventricular hypertrophy, normal left ventricular size with atrial size upper limit of normal [id number] aortic valve regurgitation. 4. Recommend consideration for long-term anticoagulation with the patient. Consider Eliquis. 5. Her LDL is elevated, so recommend continuation of statin therapy. MD ORLIN Guerra/[facility]MA /11:55 AM /12:43 PM
--- NOTE | 2017-05-21 13:41 | HHI.PR ---
Subjective Remarks Follow-up for recurrent TIA Patient stated that her speech was affected. She stated that from her prior stroke her speech was also affected but it got worse. Patient is able to communicate but does have difficulty finding words at time. She could not tell me her first name but was able to tell me her last name. Deny any other focal neurological deficits. She feels like she is getting better but still has difficulty. Discussed case with patient's nurse. Reviewed telemetry. Objective Vitals Vital Signs Date Time Temp Pulse Resp B/P (MAP) Pulse Ox O2 Delivery O2 Flow Rate FiO2 05/21/17 12:26 98.3 75 18 144/72 (96) 99 05/21/17 08:39 98.0 67 18 123/69 (87) 95 05/21/17 05:31 97 05/21/17 04:11 97.2 64 17 117/60 (79) 98 05/21/17 04:07 64 05/21/17 00:30 54 05/21/17 00:12 97.0 77 17 121/63 (82) 98 05/20/17 20:55 96.3 78 17 110/53 (72) 98 05/20/17 20:00 95 05/20/17 19:15 59 21 135/64 (87) 96 Room Air 05/20/17 16:05 96 Room Air 05/20/17 15:35 Room Air 05/20/17 15:29 98.2 62 16 120/62 (81) 94 I/O 05/20/17 05/20/17 05/20/17 05/21/17 05/21/17 05/21/17 07:00 15:00 23:00 07:00 15:00 23:00 Intake Total 120 ml 1568.3 ml Balance 120 ml 1568.3 ml Intake Oral 120 ml 0 ml IV Total 1568.3 ml # Voids 0 2 # Bowel Movements 0 0 Result Diagram: 05/21/17 0210 05/21/17 0210 Imaging Last Impressions Head CT 05/20/17 1532 Signed Impressions: Service Date/Time: Saturday, May 20, 2017 16:48 - CONCLUSION: 1. No evidence of acute intracranial pathology. No masses are identified. Valdo Campbell MD Objective Remarks GENERAL: in NAD NECK: Supple, trachea midline. No JVD or lymphadenopathy. CARDIOVASCULAR: Regular rate and rhythm without murmurs, gallops, or rubs. RESPIRATORY: Breath sounds equal bilaterally. No accessory muscle use. GASTROINTESTINAL: Abdomen soft, non-tender, nondistended. NEURO: Difficulty finding words. CN 2-12 intact. Grossly moves all 4 limbs. Sensation grossly intact. Medications and IVs Current Medications Heparin Sodium/ Dextrose 250 ml @ 9 mls/hr TITRATE IV Last administered on at 19:53; Start 05/20/17 at 18:30 Sodium Chloride 1,000 ml @ 100 mls/hr Q10H IV Last administered on 05/21/17at 01 :00; Start 05/20/17 at 17:54; Stop 05/21/17 at 12:22; Status DC Sodium Chloride (NS Flush) 2 ml UNSCH PRN IV FLUSH FLUSH AFTER USING IV ACCESS ; Start 05/20/17 at 18:00; Stop 05/21/17 at 12:22; Status DC Sodium Chloride (NS Flush) 2 ml BID IV FLUSH ; Start 05/20/17 at 21:00; Stop 05/21 at 12:23; Status DC Acetaminophen (Tylenol) 650 mg Q4H PRN PO TEMP > 100.4; Start 05/20/17 at 18:00 Enoxaparin Sodium (Lovenox Inj) 40 mg Q24H SQ ; Start 05/20/17 at 18:00; Stop 05/20/17 at 19:18; Status DC Naloxone HCl (Narcan Inj) 0.4 mg UNSCH PRN IV PUSH SEE LABEL COMMENTS; Start at 18:00 Senna/Docusate Sodium (Shanique-Colace) 1 tab BID PO Last administered on 05/21/17at 11:10; Start 05/20/17 at 21:00 Magnesium Hydroxide (Milk Of Magnesia Liq) 30 ml Q12H PRN PO Mild constipation ; Start 05/20/17 at 18:00 Sennosides (Senokot) 17.2 mg Q12H PRN PO Moderate constipation; Start 05/20/17 at 18:00 Bisacodyl (Dulcolax Supp) 10 mg DAILY PRN RECTAL SEVERE CONSITIPATION; Start at 18:00 Lactulose (Lactulose Liq) 30 ml DAILY PRN PO SEVERE CONSITIPATION; Start at 18:00 Sodium Chloride (NS Flush) 2 ml BID IV FLUSH ; Start 05/20/17 at 21:00; Status UNV Sodium Chloride (NS Flush) 2 ml UNSCH PRN IV FLUSH FLUSH AFTER USING IV ACCESS ; Start 05/20/17 at 18:00; Status UNV Enalaprilat (Vasotec Inj) 1.25 mg Q4H PRN IV PUSH For SBP > 220 or DBP > 120; Start 05/20/17 at 18:00 Aspirin (Aspirin Supp) 300 mg DAILY RECTAL ; Start 05/21/17 at 09:00; Stop at 10:47; Status DC Insulin Aspart (NovoLOG SUPPLEMENTAL SCALE) 1 ACHS SQ ; Start 05/20/17 at 21:00; Stop 05/21/17 at 12:23; Status DC Dextrose (D50w (Vial) Inj) 50 ml UNSCH PRN IV PUSH HYPOGLYCEMIA-SEE COMMENTS; Start 05/20/17 at 18:00; Stop 05/21/17 at 12:23; Status DC Glucagon (Glucagon Inj) 1 mg UNSCH PRN OTHER HYPOGLYCEMIA-SEE COMMENTS; Start 05/20/17 at 18:00; Stop 05/21/17 at 12:23; Status DC Atorvastatin Calcium (Lipitor) 80 mg HS PO Last administered on 05/20/17at 21:05 ; Start 05/20/17 at 21:00 Oxybutynin Chloride (Ditropan) 5 mg HS PO Last administered on 05/20/17at 21:00; Start 05/20/17 at 21:00 Aspirin (Aspirin Chew) 81 mg DAILY CHEW Last administered on 05/21/17at 11:10; Start 05/21/17 at 10:45 Sodium Chloride (NS Flush) 2 ml BID IV FLUSH ; Start 05/21/17 at 21:00 Sodium Chloride (NS Flush) 2 ml UNSCH PRN IV FLUSH FLUSH AFTER USING IV ACCESS ; Start 05/21/17 at 12:15 Sodium Chloride 1,000 ml @ 70 mls/hr [id number] IV ; Start 05/21/17 at 12:30 Insulin Aspart (NovoLOG SUPPLEMENTAL SCALE) 1 ACHS SQ ; Start 05/21/17 at 17:00 Dextrose (D50w (Vial) Inj) 50 ml UNSCH PRN IV PUSH HYPOGLYCEMIA-SEE COMMENTS; Start 05/21/17 at 12:15 Glucagon (Glucagon Inj) 1 mg UNSCH PRN OTHER HYPOGLYCEMIA-SEE COMMENTS; Start 05/21/17 at 12:15 A/P Assessment and Plan Recurrent TIA (transient ischemic attack) Recent Acute left frontal CVA/ Aphasia received TPA on last admission CT of the brain reveals no acute abnormalities. Per Dr. Lomas continue with IV heparin and recommends long-term anticoagulation with Eliquis. continue aspirin y 81 mg daily PT/OT/speech Hold BP meds at this time allow permissive HTN Continue statin. Echo already done on last admission. Atrial fibrillation, chronic-now in SR- rate controlled Hypertension Coronary artery disease Recent 2-D echo- unremarkable Hold antihypertensive at the moment. History of urinary incontinence Continue Oxybutynin DVT ppx on heparin drip . scd/Claudine Ayala MD May 21, 2017 13:41
--- NOTE | 2017-05-21 14:03 | RADRPT ---
EXAM DATE/TIME: 05/21/2017 13:15 [facility] COMPARISON: MRA BRAIN W/O CONTRAST, April 19, 2014, 21:48. INDICATIONS : Left sided weakness. MEDICAL HISTORY : Hypertension. SURGICAL HISTORY : Appendectomy. Hysterectomy. Bilateral knee replacements. ENCOUNTER: Initial ACUITY: 2 day PAIN SCORE: 0/10 LOCATION: cranial Please note a normal MRA of the brain does not entirely exclude the possibility of a small aneurysm, nor the possibility of distal intracranial vessel disease. TECHNIQUE: 3D time of flight MRA was performed. Source images, multiplanar STS MIP, and 3D volume MIP reconstru ctions were reviewed. FINDINGS: There is excellent visualization of the major intracranial arteries out to the second-order branch ve ssels. There is no evidence for aneurysm, vessel truncation or stenosis, and no evidence for vascula r malformation. There is a origin of the posterior cerebral artery on the right. There is a pat ent posterior communicating artery on the left. CONCLUSION: 1. Unremarkable MR angiography of the brain. Valdo Campbell MD on May 21, 2017 at 13:58 Board Certified Radiologist. This report was verified electronically.
--- NOTE | 2017-05-21 14:06 | RADRPT ---
EXAM DATE/TIME: 05/21/2017 13:15 [facility] COMPARISON: MRI BRAIN W/O CONTRAST, May 02, 2017, 14:47. INDICATIONS : Left sided weakness. MEDICAL HISTORY : Hypertension. SURGICAL HISTORY : Appendectomy. Thyroidectomy. Hysterectomy. Bilateral knee replacements. ENCOUNTER: Initial ACUITY: 1 day PAIN SCORE: 0/10 LOCATION: cranial TECHNIQUE: Multiplanar, multisequence MRI of the brain was performed without contrast. FINDINGS: The craniocervical junction and midline structures are unremarkable. There is continued evolution of the infarct involving the posterior left frontal region involving a single gyrus just anterior to the central sulcus with continued T2 abnormality and near complete resolution of diffusion abnormality. No acute cortical infarction is identified. The craniocervical junction and midline structures are un remarkable with the exception of an empty sella which can be seen as a normal variation. Posterior fo ssa structures are unremarkable. CONCLUSION: Continued evolution of the previously seen left frontal infarct. No acute infarct in the right hemisp here is identified to account for left-sided weakness. Valdo Campbell MD on May 21, 2017 at 14:01 Board Certified Radiologist. This report was verified electronically.
--- NOTE | 2017-05-21 17:13 | ECHRPT ---
Indication: CVA/TIA CONCLUSIONS The left ventricular systolic function is low normal with an estimated ejection fraction in the rang e of 50- 55%. Wall thickness is measured at the upper limits of normal. Normal left ventricular size. Mild aortic valve regurgitation. Mild mitral valve regurgitation. BP: 117 / 60 HR: 79 Rhythm: Other MEASUREMENTS (Male / Female) Normal Values Technical Quality:Fair 2D ECHO LV Diastolic Diameter PLAX 4.9 cm 4.2 - 5.9 / 3.9 - 5.3 cm LV Systolic Diameter PLAX 3.8 cm IVS Diastolic Thickness 1.0 cm 0.6 - 1.0 / 0.6 - 0.9 cm LVPW Diastolic Thickness 1.0 cm 0.6 - 1.0 / 0.6 - 0.9 cm LV Relative Wall Thickness 0.4 LVOT Diameter 2.1 cm M-MODE Aortic Root Diameter MM 2.5 cm LA Systolic Diameter MM 4.6 cm LA Ao Ratio MM 1.8 AV Cusp Separation MM 1.7 cm DOPPLER AV Peak Velocity 165.0 cm/s AV Peak Gradient 10.9 mmHg AI Peak Velocity 424.0 cm/s AI Peak Gradient 71.9 mmHg AI Pressure Half Time 905.0 ms LVOT Peak Velocity 112.0 cm/s LVOT Peak Gradient 5.0 mmHg AV Area Cont Eq pk 2.4 cm MR Peak Velocity 404.0 cm/s MR Peak Gradient 65.3 mmHg Mitral E Point Velocity 94.8 cm/s Mitral A Point Velocity 85.9 cm/s Mitral E to A Ratio 1.1 LV E' Lateral Velocity 9.7 cm/s Mitral E to LV E' Lateral Ratio 9.8 LV E' Septal Velocity 3.8 cm/s Mitral E to LV E' Septal Ratio 24.9 PV Peak Velocity 99.1 cm/s PV Peak Gradient 3.9 mmHg FINDINGS LEFT VENTRICLE The left ventricular systolic function is low normal with an estimated ejection fraction in the rang e of 50- 55%. Wall thickness is measured at the upper limits of normal. Normal left ventricular size. RIGHT VENTRICLE Normal right ventricular size and systolic function. LEFT ATRIUM The left atrial size is normal. RIGHT ATRIUM The right atrial size is normal. ATRIAL SEPTUM Normal atrial septal thickness without atrial level shunting by limited color doppler interrogation. AORTA The aortic root and proximal ascending aorta are normal in size on limited imaging. MITRAL VALVE Mild mitral valve regurgitation. AORTIC VALVE Mild aortic valve regurgitation. TRICUSPID VALVE Structurally normal tricuspid valve. No tricuspid valve stenosis or regurgitation. PULMONARY VALVE The pulmonary valve is not well visualized. VESSELS The inferior vena cava is normal in size. PERICARDIUM No pericardial effusion. Gabino Paz MD (Electronically Signed) Final Date:21 May 2017 17:12
[2017-05-21] MEDS: ATORVASTATIN 80 MG TAB PO SCH (20:51)
[2017-05-21] MEDS: OXYBUTYNIN CHLORIDE 5 MG TAB PO SCH (20:51)
[2017-05-21] MEDS: HEPARIN-D5W 25,000 U/250 ML 250 ML IV SCH (20:56)
[2017-05-22] VITALS (7 sets, daily range): BP systolic 153–175; BP diastolic 67–96; PULSE 67–80; RESP 16–18; TEMP 96.3–99.3; O2SAT 95–100
[2017-05-22] MEDS: SODIUM CHLOR 0.9% 1000 ML INJ 1,000 ML IV SCH (00:59)
[2017-05-22] MEDS: INSULIN ASPART SUPPLEMENTAL SCALE SQ SCH ×2 (08:00→12:00)
[2017-05-22] MEDS: ASPIRIN 81 MG CHEW TAB CHEW SCH (08:14)
[2017-05-22] MEDS: DOCUSATE SODIUM 50 MG/SENNA 8.6 MG TAB PO SCH (08:15)
[2017-05-22] MEDS: SODIUM CHLORIDE 0.9% FLUSH 10 ML FLUSH IV FLUSH SCH (08:15)
[2017-05-22] MEDS ORDERED: NON-FORMULARY DRUG (Losartan-Hydrochlorothiazide 1 TAB) PO SCH (11:00)
[2017-05-22] MEDS ORDERED: APIX5TAB PO (11:44)
[2017-05-22] MEDS ORDERED: HYDROCHLOROTHIAZIDE 12.5 MG CAP PO SCH (12:00)
[2017-05-22] MEDS ORDERED: LOSARTAN 50 MG TAB PO SCH (12:00)
--- NOTE | 2017-05-22 13:52 | HHI.FF ---
Face to Face Verification Diagnosis: (1) History of recurrent TIAs (2) A-fib (3) Expressive aphasia (4) Acute left frontal CVA (5) TIA (transient ischemic attack) Physical Therapy Order: Evaluate and Treat, Improve ambulation, Strength and gait training Home Health Nursing Order: Medical education Signs/symptoms of disease process Medication education-adverse effect I have seen patient Ivanna Castillo on 05/22/17. My clinical findings support the need for the requested home health care services because: Ltd mobility - disease progression High risk of falls I certify that my clinical findings support that this patient is homebound because: Impaired cognitive ability/safety Claudine Rojas MD May 22, 2017 13:52
--- NOTE | 2017-05-22 13:53 | HHI.DS ---
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 fib, hypertension, arthritis. She presents via EMS for evaluation. Prior to arrival the patient was speaking with family member when she felt sudden onset weakness in her left arm and leg and also was noted with slurred speech. This lasted for a few minutes and then resolved. She currently feels normal. Speech also improved and says his back at baseline. The weakness resolved. She denies any headache, blurred vision, weakness, chest pain, shortness of breath, palpitations, dizziness, nausea, vomiting. She is currently prescribed baby aspirin on a daily basis which she has been using as prescribed. More recently the patient was admitted for chest pain on May 18. She underwent a myocardial perfusion scan which revealed no significant abnormalities. She has no other complaints at this time. Vomiting also at bedside providing some history as well. CBC/BMP: 05/21/17 0210 05/21/17 0210 Significant Findings Laboratory Tests Test 05/20/17 15:46 05/20/17 17:30 05/20/17 17:48 05/20/17 17:52 White Blood Count 11.8 TH/MM3 (4.0-11.0) Neutrophils (%) (Auto) 71.6 % (16.0-70.0) Neutrophils # (Auto) 8.4 TH/MM3 (1.8-7.7) Prothrombin Time 12.2 SEC (9.8-11.6) Red Blood Count 3.11 MIL/MM3 (4.00-5.30) Hemoglobin 9.5 GM/DL (11.6-15.3) Hematocrit 27.5 % (35.0-46.0) Platelet Count 146 TH/MM3 (150-450) Creatinine 1.18 MG/DL (0.50-1.00) Random Glucose 112 MG/DL (74-106) Estimat Glomerular Filtration Rate 54 ML/MIN (>89) Hemoglobin A1c 6.2 % (4.3-6.0) Urine Turbidity HAZY (CLEAR) Urine Protein 100 mg/dL (NEG-TRACE) Urine Leukocyte Esterase MOD (NEG) Urine WBC 10 /hpf (0-5) Urine Bacteria MOD /hpf (NONE) Urine Mucus MANY /lpf (OCC) Test 05/21/17 02:10 05/21/17 08:18 05/22/17 04:00 Monocytes (%) (Auto) 9.0 % (0.0-8.0) Activated Partial Thromboplast Time 40.7 SEC (24.3-30.1) 49.6 SEC (24.3-30.1) 57.1 SEC (24.3-30.1) Calcium Level 8.3 MG/DL (8.5-10.1) Potassium Level 3.4 MEQ/L (3.5-5.1) Chloride Level 109 MEQ/L (98-107) LDL Cholesterol 112 MG/DL (0-99) PE at Discharge GENERAL: in NAD NECK: Supple, trachea midline. No JVD or lymphadenopathy. CARDIOVASCULAR: Regular rate and rhythm without murmurs, gallops, or rubs. RESPIRATORY: Breath sounds equal bilaterally. No accessory muscle use. GASTROINTESTINAL: Abdomen soft, non-tender, nondistended. NEURO: Difficulty finding words. CN 2-12 intact. Grossly moves all 4 limbs. Sensation grossly intact. Hospital Course Recurrent TIA (transient ischemic attack) Recent Acute left frontal CVA/ Aphasia received TPA on last admission CT of the brain reveals no acute abnormalities. Per Dr. Lomas continue with IV heparin and recommends long-term anticoagulation with Eliquis. continue aspirin y 81 mg daily PT/OT/speech Hold BP meds at this time allow permissive HTN Continue statin. Echo already done on last admission. Atrial fibrillation, chronic-now in SR- rate controlled Hypertension Coronary artery disease Recent 2-D echo- unremarkable Hold antihypertensive at the moment. History of urinary incontinence Continue Oxybutynin DVT ppx on heparin drip . scd/teds Pt Condition on Discharge: Good Discharge Disposition: Disch w/ Home Health Serv Discharge Instructions DIET: Follow Instructions for: Heart Healthy Diet Additional Diet Instructions: Discharge patient after she is given her dose of Eliquis. Stop heparin drip and then give dose of Eliquis. Activities you can perform: Regular-No Restrictions Claudine Rojas MD May 22, 2017 13:52
--- NOTE | 2017-05-22 13:53 | HHI.DCPOC ---
Discharge Care Plan Diagnosis: (1) History of recurrent TIAs (2) TIA (transient ischemic attack) (3) A-fib (4) History of CVA (cerebrovascular accident) (5) Expressive aphasia (6) Acute left frontal CVA (7) HTN (hypertension) (8) Hyperlipidemia Goals to Promote Your Health * To prevent worsening of your condition and complications * To maintain your health at the optimal level Directions to Meet Your Goals Take your medications as prescribed Follow your dietary instruction Follow activity as directed Keep your appointments as scheduled Take your immunizations and boosters as scheduled If your symptoms worsen call your PCP, if no PCP go to Urgent Care Center or Emergency Room Smoking is Dangerous to Your Health. Avoid second hand smoke Call the 24-hour hour crisis hotline for domestic abuse at Claudine Rojas MD May 22, 2017 13:53
[2017-05-22] MEDS ORDERED: APIXABAN 5 MG TABLET PO ONE (15:00)
--- NOTE | 2017-05-24 22:19 | HM ---
Date Performed: 05/21/2017 Time Performed: 18:17:00 HOOKUP DATE: 05/21/17 06:17:00 PM Sun ANALYSIS START TIME: 05/21/2017 6:22:00 PM ANALYSIS END TIME: 05/22/2017 2:37:20 PM PATIENT AGE: 76 PATIENT HEIGHT PATIENT WEIGHT DRUG LIST PATIENT DIAGNOSIS: TIA TEST NARRATIVE: The patient's average heart rate was 77 BPM. Heart rates greater than 120 B PM were noted < 1% of the time. No episodes of bradycardia were noted. No pauses exceeding 2.0 s econds were noted. 901 ventricular ectopics, which represented 1% of the total beat count, were n oted. The highest ventricular ectopic frequency occurred from 07:00 PM to 08:00 PM Sun. During this time 86 VE(s) occurred. Ventricular ectopics were observed as 879 isolated beat(s) and as 11 couple t(s). No runs were noted. 255 supraventricular ectopics, which represented < 1% of the total jaime t count, were noted. The highest supraventricular ectopic frequency occurred from 07:00 PM to 08:00 PM Sun. During this time 31 SVE(s) occurred. No episodes of ST depression (defined as -1.0 mm or more) were noted in channel 1. No episodes of ST depression (defined as -1.0 mm or more) were noted in channel 2. No episodes of ST depression (defined as -1.0 mm or more) were noted in channel 3. TEST INTERPRETATION: Sinus rhythm PACs PVCs Rare episodes of nonsustained atrial tachycardia Signed by : Riley Turner
== END 2017-05-22 15:54 | disposition home health service (06) | DRG 69 ==
LOC: NEPE 15:14 → NEDA 17:43 → OBSVTOIN 17:56 → N06B 20:06
PROVIDERS: ADMIT Family Medicine; ATTEND Family Medicine
DX: G45.8 Other transient cerebral ischemic attacks and related syndromes (principal); I48.2 Chronic atrial fibrillation; I69.320 Aphasia following cerebral infarction; I10 Essential (primary) hypertension; I25.10 Atherosclerotic heart disease of native coronary artery without angina pectoris; K21.9 Gastro-esophageal reflux disease without esophagitis; I25.2 Old myocardial infarction; R32 Unspecified urinary incontinence; E78.5 Hyperlipidemia, unspecified; F17.210 Nicotine dependence, cigarettes, uncomplicated; Z79.82 Long term (current) use of aspirin; Z88.6 Allergy status to analgesic agent; Z96.653 Presence of artificial knee joint, bilateral
CPT/HCPCS: 70450; 70544; 70551; 80048; 80061; 81001; 82948; 83036; 85025; 85027; 85610; 85730; 87086; 93005; 93225; 93226; 93306; J1644; J7030

== ENCOUNTER 2017-06-01 12:44 | Emergency (ER) | payer MEDICARE ==
[~2017-06-01] VITALS: Ht 160 cm; Wt 66.0 kg
[~2017-06-01 12:44] MED LIST changes: +APIX5TAB PO; -ASPI81 CHEW; -BACL10TA PO; -ISOS60TA PO; -METO25TA3 PO; -OMEP20TA93 PO
[2017-06-01 12:45] VITALS: BP 162/72; PULSE 57; RESP 14; TEMP 98; O2SAT 98
--- NOTE | 2017-06-01 13:32 | RADRPT ---
EXAM DATE/TIME: 06/01/2017 13:20 [facility] COMPARISON: CT BRAIN W/O CONTRAST, May 20, 2017, 16:48. MRI BRAIN W/O CONTRAST, May 21, 2017, 13:15. INDICATIONS : Cephalgia RADIATION DOSE: 34.43 CTDIvol (mGy) MEDICAL HISTORY : Cerebrovascular disease. Cardiovascular disease Hypertension. SURGICAL HISTORY : Appendectomy. Hysterectomy. ENCOUNTER: Initial ACUITY: 1 day PAIN SCALE: 10/10 LOCATION: cranial TECHNIQUE: Multiple contiguous axial images were obtained of the head. Using automated exposure control and adj ustment of the mA and/or kV according to patient size, radiation dose was kept as low as reasonably a chievable to obtain optimal diagnostic quality images. DICOM format image data is available electro nically for review and comparison. FINDINGS: CEREBRUM: 1.6 cm hypodensity in the left frontal lobe with continued evolution of the previous stroke. No evide nce of hemorrhage or mass. The ventricles are normal for age. No evidence of midline shift, mass l esion, hemorrhage or acute infarction. No extra-axial fluid collections are seen. POSTERIOR FOSSA: The cerebellum and brainstem are intact. The 4th ventricle is midline. The cerebellopontine angle i s unremarkable. EXTRACRANIAL: The visualized portion of the orbits is intact. SKULL: The calvaria is intact. No evidence of skull fracture. CONCLUSION: 1.6 cm hypodensity left frontal lobe continued evolution of the previous stroke. No acute hemorrhage or edema is identified. Min Kim MD on June 01, 2017 at 13:29 Board Certified Radiologist. This report was verified electronically.
[2017-06-01 13:53] LABS: AUTOMATED NEUTROPHIL # 6.8 TH/MM3 (1.8-7.7); BASOPHIL # 0.1 TH/MM3 (0-0.2); BASOPHIL % 0.9 % (0.0-2.0); EOSINOPHIL # 0.1 TH/MM3 (0-0.4); EOSINOPHIL % 1.3 % (0.0-4.0); HEMATOCRIT 44.9 % (35.0-46.0); HEMOGLOBIN 14.8 GM/DL (11.6-15.3); LYMPH % 23.8 % (9.0-44.0); LYMPHOCYTE # 2.4 TH/MM3 (1.0-4.8); MEAN CELL VOLUME 86.8 FL (80.0-100.0); MEAN CORPUSCULAR HEMOGLOBIN 28.6 PG (27.0-34.0); MEAN CORPUSCULAR HGB CONC 32.9 % (32.0-36.0); MEAN PLATELET VOLUME 8.9 FL (7.0-11.0); MONO % 7.1 % (0.0-8.0); MONOCYTE # 0.7 TH/MM3 (0-0.9); NEUT % 66.9 % (16.0-70.0); PLATELET COUNT 271 TH/MM3 (150-450); RED BLOOD COUNT 5.17 MIL/MM3 (4.00-5.30); WHITE BLOOD COUNT 10.2 TH/MM3 (4.0-11.0)
[2017-06-01 14:05] LABS: INTERNATIONAL NORMALIZED RATIO 1.2 RATIO; PROTHROMBIN TIME - PATIENT 12.5 SEC (9.8-11.6)
[2017-06-01 14:19] LABS: ALBUMIN 3.4 GM/DL (3.4-5.0); AST (GOT) 15 U/L (15-37); BICARBONATE 31.8 MEQ/L (21.0-32.0); BLOOD UREA NITROGEN 7 MG/DL (7-18); CALCIUM 9.1 MG/DL (8.5-10.1); CHLORIDE 104 MEQ/L (98-107); CREATININE 0.95 MG/DL (0.50-1.00); GLOMERULAR FILTRATION RATE 69 ML/MIN (>89); GLUCOSE,RANDOM 112 MG/DL (74-106); SODIUM (NA) 141 MEQ/L (136-145)
[2017-06-01 14:22] LABS: ALKALINE PHOSPHATASE 150 U/L (45-117); ALT (GPT) 13 U/L (10-53); TOTAL BILIRUBIN ADULT 0.3 MG/DL (0.2-1.0); TOTAL PROTEIN 7.8 GM/DL (6.4-8.2)
--- NOTE | 2017-06-01 16:00 | PD ---
Physical Exam Date Seen by Provider: Jun 01, 2017 Time Seen by Provider: 14:56 Narrative 76 year old female presents to the emergency department for evaluation of a bifrontal headache that started approximately 30 mins ago. She has recent history of CVA and TIA. She denies any other symptoms including difficulty speaking, slurred speech, weakness, dizziness, syncope. Pain is 10/10. Data Data Last Documented VS Vital Signs Date Time Temp Pulse Resp B/P (MAP) Pulse Ox O2 Delivery O2 Flow Rate FiO2 06/01/17 12:45 98.0 57 14 162/72 (102) 98 Room Air Orders Orders Prothrombin Time / Inr (Pt) (06/01/17 12:54) Act Partial Throm Time (Ptt) (06/01/17 12:54) Complete Blood Count With Diff (06/01/17 12:54) Comprehensive Metabolic Panel (06/01/17 12:54) Ct Brain W/O Iv Contrast(Rout) (06/01/17 12:54) Labs Laboratory Tests Test 06/01/17 13:36 White Blood Count 10.2 TH/MM3 Red Blood Count 5.17 MIL/MM3 Hemoglobin 14.8 GM/DL Hematocrit 44.9 % Mean Corpuscular Volume 86.8 FL Mean Corpuscular Hemoglobin 28.6 PG Mean Corpuscular Hemoglobin Concent 32.9 % Red Cell Distribution Width 16.0 % Platelet Count 271 TH/MM3 Mean Platelet Volume 8.9 FL Neutrophils (%) (Auto) 66.9 % Lymphocytes (%) (Auto) 23.8 % Monocytes (%) (Auto) 7.1 % Eosinophils (%) (Auto) 1.3 % Basophils (%) (Auto) 0.9 % Neutrophils # (Auto) 6.8 TH/MM3 Lymphocytes # (Auto) 2.4 TH/MM3 Monocytes # (Auto) 0.7 TH/MM3 Eosinophils # (Auto) 0.1 TH/MM3 Basophils # (Auto) 0.1 TH/MM3 CBC Comment DIFF FINAL Differential Comment Prothrombin Time 12.5 SEC Prothromb Time International Ratio 1.2 RATIO Activated Partial Thromboplast Time 30.3 SEC Blood Urea Nitrogen 7 MG/DL Creatinine 0.95 MG/DL Random Glucose 112 MG/DL Total Protein 7.8 GM/DL Albumin 3.4 GM/DL Calcium Level 9.1 MG/DL Alkaline Phosphatase 150 U/L Aspartate Amino Transf (AST/SGOT) 15 U/L Alanine Aminotransferase (ALT/SGPT) 13 U/L Total Bilirubin 0.3 MG/DL Sodium Level 141 MEQ/L Potassium Level 3.4 MEQ/L Chloride Level 104 MEQ/L Carbon Dioxide Level 31.8 MEQ/L Anion Gap 5 MEQ/L Estimat Glomerular Filtration Rate 69 ML/MIN [facility] Supervised Visit with NIGEL: No Narrative Course 76 year old female presents to the emergency department for evaluation of a headache that started approximately 30 mins ago. She denies any other symptoms or complaints. Patient was initially seen in triage and work up is started. Patient left AMA before she could be moved to a medical bed. Diagnosis Primary Impression: Left against medical advice Additional Impression: Headache Qualified Codes: R51 - Headache Disposition: 07 AGAINST MEDICAL ADVICE Roxana Felipe Jun 01, 2017 16:00
== END 2017-06-01 14:56 | disposition left against medical advice (07) ==
LOC: NED 12:44
DX: R51 Headache (principal); Z86.73 Personal history of transient ischemic attack (TIA), and cerebral infarction without residual deficits; Z79.01 Long term (current) use of anticoagulants
CPT/HCPCS: 70450; 80053; 85025; 85610; 85730; 99284

== ENCOUNTER 2017-09-30 17:47 | Emergency (ER) | END 2017-09-30 19:24 | disposition home or self-care (01) | DX: M79.1 Myalgia (principal); M54.5 Low back pain; D64.9 Anemia, unspecified; J45.909 Unspecified asthma, uncomplicated; I48.91 Unspecified atrial fibrillation; I10 Essential (primary) hypertension; V89.2XXA Person injured in unspecified motor-vehicle accident, traffic, initial encounter; Y92.410 Unspecified street and highway as the place of occurrence of the external cause; Z72.0 Tobacco use; Z79.01 Long term (current) use of anticoagulants | CPT/HCPCS: 96372; 99283; J1885; J2360 ==